=== PATIENT | female | born 1945 | race Caucasian/White ===

== ENCOUNTER 2020-05-01 15:29 | Outpatient (REF) | payer MEDICARE, SELFPAY ==
--- NOTE | 2020-05-01 | US_ITS ---
EXAMINATION: US THYROID CLINICAL INFORMATION: Goiter. COMPARISON: CT neck 12/28/2014. TECHNIQUE: Linear transducer german-scale and color Doppler examination with attention to the region of the thyroid. FINDINGS: SIZE: Measurements of the thyroid lobes and nodules are given in sagittal, anteroposterior and transverse dimensions respectively. Right Thyroid Lobe: 4.3 x 1.9 x 1.2 cm, volume 5.1 mL. Parenchyma: The gland echotexture is mildly heterogeneous. Thyroid vascularity is borderline increased. Left Thyroid Lobe: 4.2 x 1.9 x 1.7 cm, volume 7.1 mL. Parenchyma: The gland echotexture is mildly heterogeneous. Thyroid vascularity is borderline increased. Isthmus: 0.4 cm in maximum AP dimension. RIGHT THYROID LOBE: There are 3 nodules seen. 1. Location: Inferior. Size: 0.9 x 0.7 x 0.6 cm. Nodule characteristics: Isoechoic, smooth hypoechoic halo, circumscribed, no color flow. 2. Location: Inferior. Size: 0.6 x 0.4 x 0.4 cm. Nodule characteristics: Colloid cyst. 3. Location: Inferior. Size: 0.5 x 0.2 x 0.3 cm. Nodule characteristics: Isoechoic, smooth hypoechoic halo, circumscribed, no color flow. ISTHMUS: No nodules. LEFT THYROID LOBE: There are 2 nodules seen. 1. Location: Middle. Size: 0.5 x 0.2 x 0.4 cm. Nodule characteristics: Mild hypoechoic, circumscribed, intranodular color flow similar to background. 2. Location: Middle/inferior. Size: 1.2 x 0.6 x 0.7 cm. Nodule characteristics: Mild hypoechoic, circumscribed, intranodular color flow greater than background. NODES: No lymphadenopathy is seen in the tissue surrounding the thyroid gland. IMPRESSION: 1. Thyroid normal in size. No visible adenopathy. 2. Dominant nodule left lower pole 1.2 cm. Other bilateral nodularity under 1 cm.
== END 2020-05-01 15:30 | disposition home or self-care (01) ==
LOC: HO.US 15:29
PROVIDERS: PCP Internal Medicine; Visit Provider Nurse Practitioner Gerontology
DX: E04.9 Nontoxic goiter, unspecified (principal)
CPT/HCPCS: 76536

== ENCOUNTER 2020-05-28 10:05 | Outpatient (REF) | payer MEDICARE, SELFPAY ==
[2020-05-28 11:19] LABS: MANUAL DIFF FLAG NO
[2020-05-28 11:28] LABS: Basophils Percent Auto 0.4 % (0-2); Eosinophils Absolute Auto 0.5 X10*3/uL (0.0-0.4); Eosinophils Percent Auto 5.1 % (0-4); Glucose Urine UA NEG (NEG); Hematocrit 40.6 % (37-47); Hemoglobin 13.4 g/dl (12.0-16.0); Imm Gran Abs Auto 0.03 X10*3/uL (0.00-0.03); Imm Gran Pct Auto 0.3 % (0.0-0.4); Leukocyte Esterase Urine NEG (NEG); Lymphocytes Absolute Auto 3.1 X10*3/uL (1.2-4.9); Mean Corpuscular Hemoglobin 30.5 pg (27.0-33.0); Mean Corpuscular Volume 92.5 fL (80-98); Mean Platelet Volume 10.9 fL (9.4-12.3); Monocytes Absolute Auto 0.8 X10*3/uL (0.1-1.2); Monocytes Percent Auto 7.7 % (2-11); Neutrophils Absolute Auto 5.6 X10*3/uL (2.0-8.3); Neutrophils Percent Auto 55.5 % (45-73); Nitrite Urine NEG (NEG); PH 5.5 (5.0-8.0); Platelet Count 249 X10*3/uL (160-400); Red Blood Count 4.39 X10*6/uL (4.20-5.50); Red Cell Distribution Width 12.2 % (11.0-16.0); Specific Gravity - Urine 1.025 (1.005-1.025); Urine Blood NEG (NEG); Urine Ketones NEG (NEG); Urine Protein TRACE MG/DL (NEG-TRACE)
[2020-05-28 11:32] LABS: Appearance Urine CLEAR; Color Urine YELLOW
[2020-05-28 11:49] LABS: RBC Urine 0 /HPF (0); Renal Epithelial Cells Urine TRACE /LPF; Squamous Epithelial Cell Urine 2+ /LPF; WBC Urine 0-2 /HPF (0-4)
[2020-05-28 12:09] LABS: Estimated Average Glucose 200 mg/dL; Hemoglobin A1c % 8.6 %
[2020-05-28 12:18] LABS: B Type Natriuretic Peptide 16 pg/mL (<100)
[2020-05-28 13:11] LABS: Alanine Aminotransferase 16 U/L (0-31); Albumin Level 4.5 g/dL (3.5-5.0); Alkaline Phosphatase 73 U/L (39-117); Anion Gap 14 (12-20); Aspartate Amino Transferase 16 U/L (5-31); Bilirubin Total 0.5 mg/dL (0.0-1.0); Blood Urea Nitrogen 25 mg/dL (9-16); Calcium 9.8 mg/dL (8.4-10.2); Carbon Dioxide 27 mmol/L (22-29); Chloride 98 mmol/L (96-108); Cholesterol 202 mg/dL; Estimated Glomerular Filt Rate 55; Glucose Fasting 180 mg/dL (60-99); HDL Cholesterol 57 mg/dL; LDL Cholesterol Calculated 100 mg/dl; Potassium 4.4 mmol/l (3.3-5.1); Sodium 135 mmol/L (135-145); Total Protein 8.1 g/dL (6.5-8.0); Triglycerides 225 mg/dL
[2020-05-28 13:33] LABS: TSH reflex Free T4 0.98 mIU/mL (0.32-4.0)
== END 2020-05-28 10:06 | disposition home or self-care (01) ==
LOC: HO.LAB 10:05
PROVIDERS: Absent Provider Nurse Practitioner Gerontology; PCP Internal Medicine; Visit Provider Internal Medicine
DX: E11.22 Type 2 diabetes mellitus with diabetic chronic kidney disease (principal); I12.9 Hypertensive chronic kidney disease with stage 1 through stage 4 chronic kidney disease, or unspecified chronic kidney disease; N18.30 Chronic kidney disease, stage 3 unspecified; I42.9 Cardiomyopathy, unspecified; E66.9 Obesity, unspecified; E11.29 Type 2 diabetes mellitus with other diabetic kidney complication; E78.00 Pure hypercholesterolemia, unspecified
CPT/HCPCS: 36415; 80053; 80061; 81001; 83036; 83880; 84443; 85025

== ENCOUNTER → 2020-05-30 12:41 | Outpatient (BNVA) | payer MEDICARE, SELFPAY | PROVIDERS: PCP Internal Medicine; Referring Provider Internal Medicine; Visit Provider Internal Medicine Endocrinology, Diabetes & Metabolism | DX: E04.2 Nontoxic multinodular goiter (principal); R13.10 Dysphagia, unspecified | CPT/HCPCS: Q3014 ==

== ENCOUNTER 2020-07-17 13:54 | Outpatient (REF) | payer MEDICARE, SELFPAY ==
--- NOTE | 2020-07-17 13:59 | MM_ITS ---
EXAMINATION: MM SCREENING DIGITAL BREAST TOMOSYNTHESIS, BILATERAL CLINICAL INFORMATION: Screening. Asymptomatic. No known family history breast cancer. The lifetime risk of breast cancer based on the Tyrer-Cuzick Model is 3%. COMPARISON: Mammography: 02/28/2019, 02/27/2018, 12/15/2016 TECHNIQUE: Digital breast tomosynthesis is performed in both the craniocaudal and mediolateral oblique views along with computer-aided detection (CAD). Synthesized 2D images are generated from the tomosynthesis. Additional left MLO view is provided. Technologist notes challenging exam, requiring additional staff to assist in positioning. Images tailored to patient capabilities. FINDINGS: There are scattered areas of fibroglandular density (ACR BI-RADS breast composition Category b). Breast tissue composition borders on heterogeneously dense. There are scattered bilateral asymmetries stable from prior studies. There is no developing density or interval mass or architectural abnormality. Again, there are bilateral vascular calcifications. There is a biopsy clip marker again seen mid 3:30 o'clock left breast with stable adjacent calcifications. Pacemaker generator overlies and partly obscures left axilla on MLO view. MM/MM tomosynthesis screening BI IMPRESSION: No significant changes from prior studies. ASSESSMENT: BI-RADS 2: Benign RECOMMENDATION: Routine annual mammography screening. This patient's information was entered into a reminder system with a target due date for their next mammogram.
== END 2020-07-17 13:55 | disposition home or self-care (01) ==
LOC: HO.MAMMO 13:54
PROVIDERS: PCP Internal Medicine; Visit Provider Internal Medicine
DX: Z12.31 Encounter for screening mammogram for malignant neoplasm of breast (principal)
CPT/HCPCS: 77063; 77067

== ENCOUNTER → 2020-07-24 15:07 | Outpatient (BNVA) | payer MEDICARE, SELFPAY | PROVIDERS: PCP Internal Medicine; Referring Provider Internal Medicine; Visit Provider Student in an Organized Health Care Education/Training Program | DX: Z13.89 Encounter for screening for other disorder (principal) | CPT/HCPCS: Q3014 ==

== ENCOUNTER 2020-07-28 11:45 | Inpatient (IN) | payer MEDICARE, SELFPAY ==
[2020-07-28] VITALS (12 sets, daily range): BP systolic 84–157; BP diastolic 25–75; PULSE 60–76; RESP 12–20; TEMP 36.4–37.1; O2SAT 92–98; BMI 40.2
--- NOTE | 2020-07-28 12:23 | ED.AMS ---
HPI - Altered Mental Status General Chief Complaint: Urogenital-Female Stated Complaint: altered mental Time Seen by Provider: 07/28/20 12:22 Source: patient, EMS, old records reviewed and [employer] Mode of arrival: EMS Limitations: no limitations History of Present Illness HPI narrative: dx with UTI on 07/23 in the clinic but no micro noted states she was started on penicillin, EMS called as the daughter felt she was still symptomatic and confused today - review of records notes she was started on Bactrim BID the patient states she is annoyed she is here, but her low back does hurt complaint: confusion Onset (ago): day(s) (today) Timing confirmed by: family member Severity: mild Consistency of symptoms: waxing and waning Context: history of similar presentation and other (recent UTI) Associated symptoms: other (states her low back hurts) Treatments prior to arrival: other (has been taking bactrim DS BID) Related Data Home Medications Medication Instructions Recorded Confirmed albuterol sulfate 90 mcg/actuation 2 puff INHALATION Q6H PRN 05/30/20 07/28/20 aerosol inhaler blood sugar diagnostic #10 ea 05/30/20 06/19/20 escitalopram oxalate 5 mg tablet 5 mg PO DAILY 05/30/20 07/28/20 ivabradine 5 mg tablet 5 mg PO BID tab 05/30/20 07/28/20 lisinopril 40 mg tablet 40 mg PO DAILY 05/30/20 07/28/20 mirtazapine 45 mg tablet 45 mg PO BEDTIME 05/30/20 07/28/20 blood-glucose meter #1 ea 06/19/20 06/19/20 memantine 10 mg tablet 10 mg PO BID 06/19/20 07/28/20 calcium carbonate 500 mg calcium 500 mg PO BID tab 07/23/20 07/28/20 (1,250 mg) tablet Previous Rx's Medication Instructions Recorded acetaminophen 500 mg tablet 500 mg PO Q8H PRN 30 Days #90 tab 05/30/20 lorazepam 1 mg tablet 1 mg PO DAILY PRN 30 Days #30 tab 05/30/20 ezetimibe 10 mg tablet 10 mg PO DAILY #28 tab 06/05/20 famotidine 20 mg tablet 40 mg PO DAILY #56 tab 06/05/20 folic acid 1 mg tablet 1 mg PO DAILY #28 tab 06/05/20 oxybutynin chloride 5 mg tablet 5 mg PO BID #56 tab 06/05/20 insulin degludec 100 unit/mL (3 30 unit SUBCUT DAILY 30 Days #9 ml 06/07/20 mL) subcutaneous pen atorvastatin 40 mg tablet 40 mg PO DAILY #28 tab 06/16/20 repaglinide 0.5 mg tablet 0.5 mg PO TID 90 Days #270 tab 06/19/20 pen needle, diabetic 32 gauge x #100 ea 06/26/20 carvedilol 12.5 mg tablet 12.5 mg PO BID 90 Days #180 tab 07/24/20 dulaglutide 1.5 mg/0.5 mL 1.5 mg SUBCUT QWEEK #2 ml 07/24/20 subcutaneous pen injector secukinumab 150 mg/mL subcutaneous 150 mg SUBCUT Q4W #2 ml 07/24/20 pen injector albuterol sulfate 2.5 mg INHALATION Q6H PRN #300 ml 07/25/20 Allergies Allergy/AdvReac Type Severity Reaction Status Date / Time acetaminophen [Percocet] Allergy Unknown itchiness Verified 07/28/20 12:18 aspirin [Aspirin] Allergy Unknown STOMACH Verified 07/28/20 12:18 UPSET, stomach pain baclofen Allergy Unknown dizziness Verified 07/28/20 12:18 oxycodone [Percocet] Allergy Unknown itchiness Verified 07/28/20 12:18 penicillin G [Penicillin G] Allergy Unknown SWELLING Verified 07/28/20 12:18 penicillin V Allergy Unknown anaphylaxis, Verified 07/28/20 12:18 oral swelling Review of Systems Review of Systems: Constitutional : No Weight loss, No Fever, No Chills, No Fatigue, No Malaise ENT/Mouth : No sore throat, No Rhinorrhea Eyes: No Eye Pain, No Swelling, No Redness Cardiovascular : No Chest Pain, No SOB, No Dyspnea on Exertion, No Orthopnea, No Edema, No Palpitations Respiratory : No Cough, No Sputum, No Wheezing Gastrointestinal : No Nausea, No Vomiting, No Diarrhea, No Constipation, No abdominal Pain, No Hematochezia, No Melena Genitourinary : No Dysuria, No Urinary Frequency, No Hematuria, Musculoskeletal : No joint pain, No Myalgias, No Joint Swelling, pos back pain Skin : No Skin Lesions, No rash Neuro : No Weakness, No Numbness, No Dizziness, No Headache Psych : No Anxiety/Panic, No Depression All other systems reviewed and are negative [facility] Past Medical History Attestation statement: The following information was validated with the patient. Medical History Anxiety Asthma Benign essential hypertension Cardiomyopathy Chronic kidney disease (CKD), stage III (moderate) Constipation Dementia Depression Diabetes mellitus Dyslipidemia GERD without esophagitis Hypertension Insomnia Mixed stress and urge urinary incontinence NICM (nonischemic cardiomyopathy) Non-toxic multinodular goiter Obesity (BMI 30-39.9) Psoriatic arthritis Pure hypercholesterolemia 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 2 diabetes mellitus with other diabetic kidney complication UTI (urinary tract infection) UTI (urinary tract infection) Surgical History History of section History of knee replacement procedure of right knee History of left knee replacement History of partial hysterectomy History of repair of rotator cuff History of shoulder surgery History of surgery Family History Family History Father Prostate cancer Mouth cancer Mother Type 2 diabetes mellitus Hyperlipidemia Diabetes Hypertension Social History Social History Household Members: None Alcohol intake: never Smoking Status: Never smoker Use of substances other than those prescribed or required for medical reasons: No Advance Directives: No Advance Directives Information Provided: Yes Physical Exam Vital Signs: Vital Signs: Last Vital Signs Temp 97.9 F 07/28/20 16:00 Pulse 60 07/28/20 16:00 Resp 17 07/28/20 16:00 BP 110/61 07/28/20 16:00 Pulse Ox 97 07/28/20 16:00 Body Mass Index 40.2 Appearance: Alert. Oriented X3. No acute distress. slightly annoyed Eyes: Pupils equal, round and reactive to light. ENT: Pharynx normal. Neck: Normal inspection. Neck supple. CVS: Normal heart rate and rhythm. Pulses normal. Respiratory: No respiratory distress. Breath sounds normal. Abdomen: Soft and nontender. Back: mild L CVA ttp Skin: Skin warm and dry. Normal skin color. Normal skin turgor. Extremities: No lower extremity edema. No calf ttp Neuro: Oriented X 3. No motor deficit. No sensory deficit. Course Course Course Narrative: + COVID fluids held at this time given COVID status and UA negative at this time, hypotension due to COVID and not bacterial infection - concern for COVID and ARDs initial bolus ordered then 2nd liter of fluid over a couple of hours if BP tolerates BP 116/53 BP 110/60 MDM - Altered Mental Status MDM Narrative Medical decision making narrative: 74 yo female with multiple medical problems here with reported confusion she is alert and oriented x 3 now, no headaches, no focal deficits, she did have a recent UTI on 07/23 but no micro ordered and has been taking bactrim at this time the patient states she is fine, will obtain basic labs, CT scan for renal colic, IV levofloxacin send out repeat urine Lab Data Result diagrams: 07/28/20 13:22 07/28/20 13:22 Labs: Lab Results 07/28/20 07/28/20 07/28/20 Range/Units 13:22 13:22 13:22 WBC 10.7 (4.8-10.8) X10*3/uL RBC 3.66 L (4.20-5.50) X10*6/uL Hgb 11.3 L (12.0-16.0) g/dl Hct 35.3 L (37-47) % MCV 96.4 (80-98) fL MCH 30.9 (27.0-33.0) pg MCHC 32.0 (31.0-35.0) g/dl RDW 12.9 (11.0-16.0) % Plt Count 170 D (160-400) X10*3/uL MPV 11.0 (9.4-12.3) fL Immature Gran % (Auto) 0.3 (0.0-0.4) % Neut % (Auto) 69.9 (45-73) % Lymph % (Auto) 21.4 (20-40) % [place]nam % (Auto) 8.1 (2-11) % Eos % (Auto) 0.1 (0-4) % Baso % (Auto) 0.2 (0-2) % Lymph # (Auto) 2.3 (1.2-4.9) X10*3/uL [place] # (Auto) 0.9 (0.1-1.2) X10*3/uL Eos # (Auto) 0.0 (0.0-0.4) X10*3/uL Baso # (Auto) 0.0 (0.0-0.2) X10*3/uL Abs Immat Gran (auto) 0.03 (0.00-0.03) X10*3/uL Absolute Neuts (auto) 7.5 (2.0-8.3) X10*3/uL Absolute Nucleated RBC 0.000 (0.0-0.012) X10*3/uL Nucleated RBC % (auto) 0.0 (0.0-0.2) /100WBC Sodium 135 (135-145) mmol/L Potassium 5.3 H D (3.3-5.1) mmol/l Chloride 102 (96-108) mmol/L Carbon Dioxide 21 L (22-29) mmol/L Anion Gap 17 (12-20) BUN 41 H D (9-16) mg/dL Creatinine 2.22 H (0.5-1.4) mg/dL Estim Creat Clear Calc 25.2 Estimated GFR 22 Random Glucose 327 H (60-115) mg/dL Lactic Acid 2.0 (0.5-2.0) mmol/L Calcium 9.1 D (8.4-10.2) mg/dL Magnesium 1.9 (1.6-2.6) mg/dL Total Bilirubin 0.3 (0.0-1.0) mg/dL Direct Bilirubin < 0.2 (0.0-0.5) mg/dL AST 21 (5-31) U/L ALT 14 (0-31) U/L Alkaline Phosphatase 57 D (39-117) U/L Troponin I High Sens (<3.5-17.0) ng/L Total Protein 7.3 (6.5-8.0) g/dL Albumin 3.8 (3.5-5.0) g/dL Urine Color Urine Appearance Urine pH (5.0-8.0) Ur Specific [place] (1.005-1.025) Urine Protein (NEG-TRACE) MG/DL Urine Glucose (UA) (NEG) MG/DL Urine Ketones (NEG) MG/DL Urine Blood (NEG) Urine Nitrite (NEG) Ur Leukocyte Esterase (NEG) COVID-19 (MARCELO) (Negative) COVID-19 Clin Com 07/28/20 07/28/20 07/28/20 Range/Units 13:22 13:22 13:22 WBC (4.8-10.8) X10*3/uL RBC (4.20-5.50) X10*6/uL Hgb (12.0-16.0) g/dl Hct (37-47) % MCV (80-98) fL MCH (27.0-33.0) pg MCHC (31.0-35.0) g/dl RDW (11.0-16.0) % Plt Count (160-400) X10*3/uL MPV (9.4-12.3) fL Immature Gran % (Auto) (0.0-0.4) % Neut % (Auto) (45-73) % Lymph % (Auto) (20-40) % Putnam % (Auto) (2-11) % Eos % (Auto) (0-4) % Baso % (Auto) (0-2) % Lymph # (Auto) (1.2-4.9) X10*3/uL [place] # (Auto) (0.1-1.2) X10*3/uL Eos # (Auto) (0.0-0.4) X10*3/uL Baso # (Auto) (0.0-0.2) X10*3/uL Abs Immat Gran (auto) (0.00-0.03) X10*3/uL Absolute Neuts (auto) (2.0-8.3) X10*3/uL Absolute Nucleated RBC (0.0-0.012) X10*3/uL Nucleated RBC % (auto) (0.0-0.2) /100WBC Sodium (135-145) mmol/L Potassium (3.3-5.1) mmol/l Chloride (96-108) mmol/L Carbon Dioxide (22-29) mmol/L Anion Gap (12-20) BUN (9-16) mg/dL Creatinine (0.5-1.4) mg/dL Estim Creat Clear Calc Estimated GFR Random Glucose (60-115) mg/dL Lactic Acid (0.5-2.0) mmol/L Calcium (8.4-10.2) mg/dL Magnesium (1.6-2.6) mg/dL Total Bilirubin (0.0-1.0) mg/dL Direct Bilirubin (0.0-0.5) mg/dL AST (5-31) U/L ALT (0-31) U/L Alkaline Phosphatase (39-117) U/L Troponin I High Sens 9.5 (<3.5-17.0) ng/L Total Protein (6.5-8.0) g/dL Albumin (3.5-5.0) g/dL Urine Color YELLOW Urine Appearance HAZY Urine pH 5.5 (5.0-8.0) Ur Specific [place] >= 1.030 H (1.005-1.025) Urine Protein TRACE (NEG-TRACE) MG/DL Urine Glucose (UA) 100 H (NEG) MG/DL Urine Ketones NEG (NEG) MG/DL Urine Blood NEG (NEG) Urine Nitrite NEG (NEG) Ur Leukocyte Esterase NEG (NEG) COVID-19 (MARCELO) Positive A (Negative) COVID-19 Clin Com See Note ECG Data ECG #1: Attestation: I personally reviewed and interpreted this ECG as follows: ECG interpretation date: 07/28/20 ECG interpretation time: 15:16 Interpretation: Rate: 60 Rhythm: v paced continuous - atrial sensed [place]clenny: normal Normal P waves. Normal LEATHA. Normal QRS complex. ST T wave : nonspecific, no CELINE qTC: normal prior studies: The study has been interpreted contemporaneously by me. . Critical Care Time Critical Care Time Critical Care Time: Yes Total Critical Care Time: 35 Attestation: 2L of IVF resuscitation ordered, records reviewed. I attest to this time spent taking care of the patient Discharge Plan Discharge Clinical Impression: COVID-19 Acute renal failure Qualifiers: Acute renal failure type: unspecified Qualified Code(s): N17.9 - Acute kidney failure, unspecified Patient Disposition: Admitted As Inpatient
--- NOTE | 2020-07-28 12:30 | ECG_ITS ---
Test Reason : SHORTNESS OF BREATH Blood Pressure : / mmHG Vent. Rate : 060 BPM Atrial Rate : 060 BPM P-R Int : 124 ms QRS Dur : 090 ms QT Int : 456 ms P-R-T Axes : 030 032 025 degrees QTc Int : 456 ms Atrial-sensed ventricular-paced rhythm Abnormal ECG When compared with ECG of 27-SEP-2019 11:55, Vent. rate has decreased BY 20 BPM Referred By: Ruthie Miller Electronically Signed By:ANALY WHITTEN MD
--- NOTE | 2020-07-28 12:30 | XR_ITS ---
EXAMINATION: XR CHEST CLINICAL INFORMATION: Weakness. COMPARISON: Chest 09/27/2019 TECHNIQUE: Frontal view of the chest was obtained. FINDINGS: The lung apices are on expiration. No pulmonary nodule, mass or consolidation seen. The heart size is borderline enlarged. The pulmonary vascularity is normal. There are pacer electrodes in right atrium and right ventricle. There is a total right shoulder prosthesis. The prosthetic components are in satisfactory alignment. No gross bony abnormality seen. No XR/XR chest 1V IMPRESSION: No acute pulmonary process seen. Cardiomegaly.
--- NOTE | 2020-07-28 12:51 | CT_ITS ---
EXAMINATION: CT ABDOMEN AND PELVIS WITHOUT CONTRAST CLINICAL INFORMATION: Left flank pain. COMPARISON: CT abdomen and pelvis without contrast 10/06/2011. TECHNIQUE: Multidetector volumetric imaging was performed from the superior aspect of the liver through the pubic symphysis. Sagittal and coronal reformatted images were obtained on the technologist's workstation. This CT examination was performed using dose optimization techniques as appropriate, variously including the following: *Automated exposure control *Adjustment of mA and/or kV according to patient size (this includes techniques or standardized protocols for targeted exams where dose is matched to indication/reason for exam; i.e. extremities or head) *Use of iterative reconstruction technique DLP: 711 mGy-cm FINDINGS: LUNG BASES: Minimal atelectatic changes seen in left lung base. The heart size is normal. LIVER, GALLBLADDER, AND BILIARY TREE: The liver is normal in size, shape, and attenuation. No focal hepatic lesion or biliary ductal dilatation is present. The gallbladder is unremarkable with no evidence of radiopaque gallstones, gallbladder wall thickening, or obvious pericholecystic inflammatory changes. PANCREAS: Unremarkable. SPLEEN: There is a 4 mm hypodensity central spleen. The spleen is otherwise normal size and density. ADRENAL GLANDS: In the right adrenal gland there is low-density lesion measuring 1.4 x 1.2 cm and measuring -9 Hounsfield units suggestive of adrenal myolipoma. The left adrenal gland is normal. KIDNEYS AND URETERS: The kidneys are normal in size, shape, and attenuation. No hydronephrosis, hydroureter, or calculi seen. No perinephric stranding. There is a moderate-sized cyst lower pole left kidney measuring 4.1 x 4.2 cm. A small hypodense lesion midpole cortex left kidney measuring 3 mm on axial image 33/3 is likely a small complex or proteinaceous cyst. BLADDER: Unremarkable. GASTROINTESTINAL TRACT: There is scattered stool and gas seen throughout the colon without significant distention. The small bowel loops are normal caliber. Appendix is likely normal caliber. ABDOMINAL WALL: No significant hernia is appreciated. LYMPH NODES: Normal. VASCULAR: Unremarkable. PELVIC VISCERA: Calcified density surrounding the prostatic urethra. No free air or free fluid seen. OSSEOUS STRUCTURES: No lytic or sclerotic process seen. There is mild degenerative disc changes and spondylosis lower dorsal spine. Bilateral L4-L5 and L5-S1 facet joint arthropathy. CT/CT abdomen pelvis wo con IMPRESSION: No acute intra-abdominal process seen. No change in the moderate-sized cyst midpole cortex left kidney and a small hyperdense complex cyst mid to lower pole left kidney cortex.
[2020-07-28] MEDS: 0.9 % Sodium Chloride 1,000 ML 999 ML IVCONT ×2 (13:28→14:59)
[2020-07-28 13:35] LABS: Glucose Urine UA 100 MG/DL (NEG); Leukocyte Esterase Urine NEG (NEG); Nitrite Urine NEG (NEG); PH 5.5 (5.0-8.0); Specific Gravity - Urine >= 1.030 (1.005-1.025); Urine Blood NEG (NEG); Urine Ketones NEG (NEG); Urine Protein TRACE MG/DL (NEG-TRACE)
[2020-07-28 13:37] LABS: Appearance Urine HAZY; Color Urine YELLOW
[2020-07-28 13:39] LABS: MANUAL DIFF FLAG NO
[2020-07-28 13:40] LABS: Basophils Percent Auto 0.2 % (0-2); Eosinophils Percent Auto 0.1 % (0-4); Hematocrit 35.3 % (37-47); Hemoglobin 11.3 g/dl (12.0-16.0); Imm Gran Abs Auto 0.03 X10*3/uL (0.00-0.03); Imm Gran Pct Auto 0.3 % (0.0-0.4); Lymphocytes Absolute Auto 2.3 X10*3/uL (1.2-4.9); Lymphocytes Percent Auto 21.4 % (20-40); Mean Corpuscular Hemoglobin 30.9 pg (27.0-33.0); Mean Corpuscular Volume 96.4 fL (80-98); Monocytes Absolute Auto 0.9 X10*3/uL (0.1-1.2); Monocytes Percent Auto 8.1 % (2-11); Neutrophils Absolute Auto 7.5 X10*3/uL (2.0-8.3); Neutrophils Percent Auto 69.9 % (45-73); Platelet Count 170 X10*3/uL (160-400); Red Blood Count 3.66 X10*6/uL (4.20-5.50); Red Cell Distribution Width 12.9 % (11.0-16.0); White Blood Count 10.7 X10*3/uL (4.8-10.8)
[2020-07-28 13:49] LABS: COVID-19 Test Positive (Negative)
[2020-07-28] MEDS: levoFLOXacin/D5W 500 MG/100 ML PIGGYBACK 100 MG IV (13:57)
[2020-07-28 14:05] LABS: Alanine Aminotransferase 14 U/L (0-31); Albumin Level 3.8 g/dL (3.5-5.0); Alkaline Phosphatase 57 U/L (39-117); Anion Gap 17 (12-20); Aspartate Amino Transferase 21 U/L (5-31); Bilirubin Direct < 0.2 mg/dL (0.0-0.5); Bilirubin Total 0.3 mg/dL (0.0-1.0); Blood Urea Nitrogen 41 mg/dL (9-16); Calcium 9.1 mg/dL (8.4-10.2); Carbon Dioxide 21 mmol/L (22-29); Chloride 102 mmol/L (96-108); Creatinine Clr Calc Pharmacy 25.2; Estimated Glomerular Filt Rate 22; Glucose Random 327 mg/dL (60-115); Magnesium 1.9 mg/dL (1.6-2.6); Potassium 5.3 mmol/l (3.3-5.1); Sodium 135 mmol/L (135-145); Total Protein 7.3 g/dL (6.5-8.0)
[2020-07-28 14:06] LABS: Troponin-I High Sensitivity 9.5 ng/L (<3.5-17.0)
--- NOTE | 2020-07-28 17:34 | P.HPHOSP_ITS ---
History of Present Illness Date of Service: 07/28/20 <WYATT Mclaughlin - Last Filed: 07/28/20 17:45> Chief Complaint: Confusion, urinary symptoms <WYATT Mclaughlin - Last Filed: 07/28/20 17:45> This is a 74-year-old Polish-speaking female who was recently diagnosed with UTI. Patient was recently treated with Bactrim for UTI diagnosed on July 23. Her daughter brought her to the emergency room today stating that she has been confused. Patient is unable to provide any significant history despite using the principal architectural firm. Her lab work revealed acute kidney injury with a serum creatinine of 2.2 to associated hyperkalemia with a potassium of 5.3. Her blood pressure is in the 80s on arrival, this improved with 3 L of IV fluid. She was given a dose of IV levofloxacin. A COVID screening test was done for hospital admission and she was incidentally found to be positive for coronavirus. <WYATT Mclaughlin - Last Filed: 07/28/20 17:45> Review of Systems Review of Systems: Yes Unobtainable due to mental status <WYATT Mclaughlin - Last Filed: 07/28/20 17:45> [facility] Medical History: Medical History Anxiety Asthma Benign essential hypertension Cardiomyopathy Chronic kidney disease (CKD), stage III (moderate) Constipation Dementia Depression Diabetes mellitus Dyslipidemia GERD without esophagitis Hypertension Insomnia Mixed stress and urge urinary incontinence NICM (nonischemic cardiomyopathy) Non-toxic multinodular goiter Obesity (BMI 30-39.9) Psoriatic arthritis Pure hypercholesterolemia 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 2 diabetes mellitus with other diabetic kidney complication UTI (urinary tract infection) UTI (urinary tract infection) <WYATT Mcluaghlin - Last Filed: 07/28/20 17:45> Family History: Family History Father Prostate cancer Mouth cancer Mother Type 2 diabetes mellitus Hyperlipidemia Diabetes Hypertension <WYATT Mclaughlin - Last Filed: 07/28/20 17:45> Surgical History: Surgical History History of section History of knee replacement procedure of right knee History of left knee replacement History of partial hysterectomy History of repair of rotator cuff History of shoulder surgery History of surgery <WYATT Mcluaghlin - Last Filed: 07/28/20 17:45> Social History: Social History Household Members: None Alcohol intake: never Smoking Status: Never smoker Use of substances other than those prescribed or required for medical reasons: No Currently Displaying Signs/Symptoms of Drug Intoxication Withdrawal: No Advance Directives: No Advance Directives Information Provided: Yes Do you have thoughts of harming others: None Do you have a plan to hurt others: No Plan service: No Current occupational status: retired <WYATT Mclaughlin - Last Filed: 07/28/20 17:45> Meds Allergies/Adverse reactions: Allergies Allergy/AdvReac Type Severity Reaction Status Date / Time acetaminophen [Percocet] Allergy Unknown itchiness Verified 07/28/20 12:18 aspirin [Aspirin] Allergy Unknown STOMACH Verified 07/28/20 12:18 UPSET, stomach pain baclofen Allergy Unknown dizziness Verified 07/28/20 12:18 oxycodone [Percocet] Allergy Unknown itchiness Verified 07/28/20 12:18 penicillin G [Penicillin G] Allergy Unknown SWELLING Verified 07/28/20 12:18 penicillin V Allergy Unknown anaphylaxis, Verified 07/28/20 12:18 oral swelling <WYATT Mclaughlin - Last Filed: 07/28/20 17:45> Home medications: Home Medications Medication Instructions Recorded Confirmed Type albuterol sulfate 90 mcg/actuation 2 puff INHALATION Q6H PRN 05/30/20 07/28/20 History aerosol inhaler blood sugar diagnostic #10 ea 05/30/20 06/19/20 History escitalopram oxalate 5 mg tablet 5 mg PO DAILY 05/30/20 07/28/20 History ivabradine 5 mg tablet 5 mg PO BID tab 05/30/20 07/28/20 History mirtazapine 45 mg tablet 45 mg PO BEDTIME 05/30/20 07/28/20 History blood-glucose meter #1 ea 06/19/20 06/19/20 History memantine 10 mg tablet 10 mg PO BID 06/19/20 07/28/20 History calcium carbonate 500 mg calcium 500 mg PO BID tab 07/23/20 07/28/20 History (1,250 mg) tablet <WYATT Mclaughlin - Last Filed: 07/28/20 17:45> Physical Exam Vital Signs and Narrative: Vital Signs: Last Vital Signs Temp 97.9 F 07/28/20 16:00 Pulse 60 07/28/20 16:00 Resp 17 07/28/20 16:00 BP 110/61 07/28/20 16:00 Pulse Ox 97 07/28/20 16:00 Body Mass Index 40.2 <WYATT Mclaughlin - Last Filed: 07/28/20 17:45> Const: General: alert and awake <WYATT Mclaughlin Last Filed: 07/28/20 17:45> Nutritional Appearance: obese <WYATT Mclaughlin - Last Filed: 07/28/20 17:45> HENMT: Head: Yes normocephalic and Yes atraumatic <WYATT Mclaughlin - Last Filed: 07/28/20 17:45> Eyes: Sclerae: sclerae normal <WYATT Mclaughlin Last Filed: 07/28/20 17:45> Chest: Chest palpation & inspection: normal inspection of the chest <WYATT Mclaughlin Last Filed: 07/28/20 17:45> Resp: Effort & Inspection: normal respiratory effort and no respiratory distress <WYATT Mclaughlin - Last Filed: 07/28/20 17:45> Cardio: Rate: regular rate <WYATT Mclaughlin Last Filed: 07/28/20 17:45> Rhythm: regular rhythm <WYATT Mclaughlin Last Filed: 07/28/20 17 :45> GI: Palpation (GI): Soft to palpation and nontender <WYATT Mclaughlin - Last Filed: 07/28/20 17:45> Skin: General skin exam: no rashes or lesions noted <WYATT Mclaughlin Last Filed: 07/28/20 17:45> Neuro: Cranial nerves: Yes CN's II-XII intact bilaterally and Yes Bilaterally intact EOM present <WYATT Mclaughlin - Last Filed: 07/28/20 17:45> Extrem: General: Yes normal to inspection <WYATT Mclaughlin - Last Filed: 07/28/20 17:45> Results Labs CBC and Chem 7: : 07/30/20 06:31 07/29/20 06:17 <WYATT Mclaughlin - Last Filed: 07/28/20 17:45> Labs: Laboratory Results - last 24 hr 07/28/20 07/28/20 07/28/20 13:22 13:22 13:22 MCV 96.4 MCH 30.9 MCHC 32.0 RDW 12.9 Plt Count 170 D MPV 11.0 Immature Gran % (Auto) 0.3 Neut % (Auto) 69.9 Lymph % (Auto) 21.4 Terrell % (Auto) 8.1 Eos % (Auto) 0.1 Baso % (Auto) 0.2 Lymph # (Auto) 2.3 Terrell # (Auto) 0.9 Eos # (Auto) 0.0 Baso # (Auto) 0.0 Abs Immat Gran (auto) 0.03 Absolute Neuts (auto) 7.5 Absolute Nucleated RBC 0.000 Nucleated RBC % (auto) 0.0 Anion Gap 17 Estim Creat Clear Calc 25.2 Estimated GFR 22 Random Glucose 327 H Lactic Acid 2.0 Calcium 9.1 D Magnesium 1.9 Total Bilirubin 0.3 Direct Bilirubin < 0.2 AST 21 ALT 14 Alkaline Phosphatase 57 D Troponin I High Sens Total Protein 7.3 Albumin 3.8 Urine Color Urine Appearance Urine pH Ur Specific [place] Urine Protein Urine Glucose (UA) Urine Ketones Urine Blood Urine Nitrite Ur Leukocyte Esterase COVID-19 (M[facility]ELO) COVID-19 Clin Com 07/28/20 07/28/20 07/28/20 13:22 13:22 13:22 MCV MCH MCHC RDW Plt Count MPV Immature Gran % (Auto) Neut % (Auto) Lymph % (Auto) Terrell % (Auto) Eos % (Auto) Baso % (Auto) Lymph # (Auto) Terrell # (Auto) Eos # (Auto) Baso # (Auto) Abs Immat Gran (auto) Absolute Neuts (auto) Absolute Nucleated RBC Nucleated RBC % (auto) Anion Gap Estim Creat Clear Calc Estimated GFR Random Glucose Lactic Acid Calcium Magnesium Total Bilirubin Direct Bilirubin AST ALT Alkaline Phosphatase Troponin I High Sens 9.5 Total Protein Albumin Urine Color YELLOW Urine Appearance HAZY Urine pH 5.5 Ur Specific [place] >= 1.030 H Urine Protein TRACE Urine Glucose (UA) 100 H Urine Ketones NEG Urine Blood NEG Urine Nitrite NEG Ur Leukocyte Esterase NEG COVID-19 (MARCELO) Positive A COVID-19 Clin Com See Note <WYATT Mclaughlin - Last Filed: 07/28/20 17:45> Imaging Radiologist's Impressions: Impressions Chest X-Ray 07/28/20 12:30 IMPRESSION: No acute pulmonary process seen. Cardiomegaly. Abdomen/Pelvis CT 07/28/20 12:51 IMPRESSION: No acute intra-abdominal process seen. No change in the moderate-sized cyst midpole cortex left kidney and a small hyperdense complex cyst mid to lower pole left kidney cortex. <WYATT Mclaughlin Last Filed: 07/28/20 17:45> Assessment and Plan (1) COVID-19: Status: Acute <WYATT Mclaughlin - Last Filed: 07/28/20 17:45> (2) Acute renal failure: Qualifiers: Acute renal failure type: unspecified Qualified Code(s): N17.9 - Acute kidney failure, unspecified <WYATT Mclaughlin - Last Filed: 07/28/20 17:45> Status: Acute <WYATT Mclaughlin - Last Filed: 07/28/20 17:45> (3) UTI (urinary tract infection): Qualifiers: Hematuria presence: without hematuria Urinary tract infection type: site unspecified Qualified Code(s): N39.0 - Urinary tract infection, site not specified <WYATT Mclaughlin - Last Filed: 07/28/20 17:45> Status: Acute <WYATT Mclaughlin - Last Filed: 07/28/20 17:45> This is a 74-year-old Polish-speaking female with history of CKD, diabetes, hypertension, dyslipidemia among others who was recently diagnosed with UTI and treated with Bactrim brought to the emergency department with confusion found to have SHABANA, hyperkalemia and incidentally COVID-19 SHABANA Creatinine 2.2 from baseline 0.99 IV fluid Avoid nephrotoxic medication Follow renal function Hyperkalemia Secondary to Bactrim/SHABANA Follow chemistries Toxic metabolic encephalopathy Related to UTI, SHABANA in setting of underlying cognitive impairment UTI Received a dose of IV levofloxacin in the ED No urine culture done as outpatient COVID-19 positive Not currently requiring oxygen Continue supportive care CHF Ivabrandine NF does not appear to be on diuretic DM SSI, POC hold home meds Mood Continue escitalopram, Ativan, mirtazapine Hypertension Blood pressure to in 80s on arrival Hold lisinopril, carvedilol GERD Hold famotidine Cognitive impairment Continue Namenda Dyslipidemia Continue statin, hold Zetia Urinary incontinence Continue oxybutynin Morbid obesity BMI 40.2 DVT prophylaxis-Lovenox This case was discussed with <WYATT Mclaughlin - Last Filed: 07/28/20 17:45>
[2020-07-28] MEDS: Lactated Ringers 1,000 ML 80 ML IVCONT (18:12)
[2020-07-28] MEDS: Enoxaparin Sodium 30 MG/0.3 ML SYRINGE SUBCUT (18:13)
--- NOTE | 2020-07-28 18:15 | PC.NURSE ---
sleeping. nsr. unlabored resp/ easily arousable. skin pwd. will continue to monitor bp.
--- NOTE | 2020-07-28 19:12 | P.EN_ITS ---
Event Note Date of Service: 07/29/20 Event Note: Patient seen examined case discussed with APC. Female patient presented with confusion and abdominal pain patient recently treated for UTI with Bactrim in the emergency room patient found to be in acute kidney injury CT abdomen and pelvis showed no acute abnormality urinalysis unremarkable a COVID screen done for hospital admission came back positive On examination patient awake alert Montserratian-speaking only complaining of abdominal pain Lungs clear to auscultation diminished breath sounds Abdomen obese, soft, mild tenderness to palpation mid abdomen no rigidity no guarding Extremities no edema Assessment and plan SHABANA with hyperkalemia likely related to Bactrim patient will be treated with IV fluids avoid nephrotoxic medication follow BMP Acute encephalopathy likely you related to UTI and a care patient will be treated with IV fluids IV antibiotics follow clinical course COVID-19 infection patient oxygenation is stable no other acute symptoms will follow clinical course.
[2020-07-28] MEDS: Memantine HCl 10 MG TABLET PO (22:54)
[2020-07-28] MEDS: Mirtazapine 15 MG TABLET 45 MG PO (22:54)
[2020-07-28] MEDS: LORazepam 1 MG TABLET PO (22:54)
[2020-07-29] VITALS (8 sets, daily range): BP systolic 119–162; BP diastolic 64–84; PULSE 80–87; RESP 15–24; TEMP 37.1–38.1; O2SAT 92–95; BMI 40.2
[2020-07-29] MEDS: 0.9 % Sodium Chloride Flush 3 ML SYRINGE IVFLUSH ×4 (00:23→21:00)
[2020-07-29 06:38] LABS: MANUAL DIFF FLAG NO
[2020-07-29 06:46] LABS: Basophils Percent Auto 0.1 % (0-2); Eosinophils Absolute Auto 0.1 X10*3/uL (0.0-0.4); Eosinophils Percent Auto 0.8 % (0-4); Hematocrit 33.8 % (37-47); Hemoglobin 10.8 g/dl (12.0-16.0); Imm Gran Abs Auto 0.04 X10*3/uL (0.00-0.03); Imm Gran Pct Auto 0.4 % (0.0-0.4); Lymphocytes Percent Auto 28.1 % (20-40); Mean Corpuscular Hemoglobin 30.9 pg (27.0-33.0); Mean Corpuscular Volume 96.6 fL (80-98); Mean Platelet Volume 10.4 fL (9.4-12.3); Monocytes Absolute Auto 0.9 X10*3/uL (0.1-1.2); Monocytes Percent Auto 8.6 % (2-11); Neutrophils Absolute Auto 6.6 X10*3/uL (2.0-8.3); Platelet Count 172 X10*3/uL (160-400); White Blood Count 10.7 X10*3/uL (4.8-10.8)
[2020-07-29 07:21] LABS: Anion Gap 13 (12-20); Blood Urea Nitrogen 23 mg/dL (9-16); Calcium 8.6 mg/dL (8.4-10.2); Carbon Dioxide 24 mmol/L (22-29); Chloride 108 mmol/L (96-108); Creatinine Clr Calc Pharmacy 49.6; Estimated Glomerular Filt Rate 47; Glucose Random 109 mg/dL (60-115); Potassium 4.6 mmol/l (3.3-5.1); Sodium 140 mmol/L (135-145)
[2020-07-29 07:33] LABS: Glucose, Whole Blood 111 mg/dL (60-115)
[2020-07-29] MEDS: Memantine HCl 10 MG TABLET PO ×2 (08:20→20:59)
[2020-07-29] MEDS: Folic Acid 1 MG TABLET PO (08:20)
[2020-07-29] MEDS: Atorvastatin Calcium 40 MG TABLET PO (08:20)
[2020-07-29] MEDS: Escitalopram Oxalate 5 MG TABLET PO (08:20)
--- NOTE | 2020-07-29 10:05 | MHC.CM.PN ---
pt lives alone in her apt. 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 this interview was conducted c pt's daughter, navin, ph: [phone]. pt's daughter will provide transportation home. pt uses a walker c ambulation. pt's daughter is very involved in her mother's care despite not living c her. in fact , the daughter tells me she is considering getting a larger apt. so she can move her mother in. the daughter denies the need for vna at this time. dc plan is for patient to return home c sash installer and care of daughter. cm to cont. to follow.
[2020-07-29] MEDS: Insulin Lispro 100 UNIT/ML 3 ML VIAL SUBCUT ×3 (11:35→21:37)
[2020-07-29 11:39] LABS: Glucose, Whole Blood 183 mg/dL (60-115)
[2020-07-29] MEDS: ondansetron HCL 4 MG/2 ML VIAL IVPUSH (12:35)
--- NOTE | 2020-07-29 15:16 | P.PNIM_ITS ---
Subjective Subjective Date of Service: 07/29/20 Interval History: Patient awake alert history obtained via clinical informatics director feels tired, abdominal pain is significantly improved, no nausea, no vomiting. Review of Systems General no headache, no dizziness, no fever chills. CVS no chest pain, no palpitation. Respiratory no cough, no sputum production no respiratory distress. Gastrointestinal no nausea no vomiting, mild abdominal pain Physical Exam Vital Signs: Vital Signs: Last Vital Signs Temp 99.5 F 07/29/20 12:00 Pulse 87 07/29/20 12:00 Resp 15 07/29/20 12:00 BP 162/75 H 07/29/20 07:57 Pulse Ox 93 07/29/20 12:00 Body Mass Index 40.2 General resting comfortably in no acute distress. Neck is supple no JVD. CVS regular rate rhythm, Respiratory lungs clear to auscultation, diminished at bases, no respiratory distress, no wheeze, no rhonchi. Gastrointestinal abdomen soft, nontender, bowel sounds audible, no guarding , no rigidity. Extremities no clubbing cyanosis or edema. Neuro nonfocal , speech clear. Skin no rash Objective Data Current Medications Generic Name Dose Route Start Last Admin Trade Name Freq PRN Reason Stop Dose Admin Albuterol Sulfate 2 puff 07/28/20 17:33 Albuterol Sulfate 90 Mcg 8 Gm Inhaler INHALE Q6H PRN Shortness Of Breath Atorvastatin Calcium 40 mg 07/29/20 09:00 07/29/20 08:20 Atorvastatin Calcium 40 Mg Tablet PO 40 mg DAILY TORRES Administration Calcium Carbonate 500 mg 07/28/20 21:00 07/29/20 08:20 Calcium Carbonate 500 Mg Tablet PO 500 mg BID TORRES Administration Docusate Sodium 100 mg 07/28/20 17:33 Docusate Sodium 100 Mg Capsule PO DAILY PRN Constipation Enoxaparin Sodium 30 mg 07/28/20 17:33 07/28/20 18:13 Enoxaparin Sodium 30 Mg/0.3 Ml Syringe SUBCUT 30 mg Q24H TORRES Administration Escitalopram Oxalate 5 mg 07/29/20 09:00 07/29/20 08:20 Escitalopram Oxalate 5 Mg Tablet PO 5 mg DAILY TORRES Administration Folic Acid 1 mg 07/29/20 09:00 07/29/20 08:20 Folic Acid 1 Mg Tablet PO 1 mg DAILY TORRES Administration Insulin Human Lispro 0 unit 07/28/20 21:00 07/29/20 11:35 Insulin Lispro 100 Unit/Ml 3 Ml Vial SUBCUT 2 unit QIDACHS [facility] [place] Administration Protocol Lorazepam 1 mg 07/28/20 17:33 07/28/20 22:54 Lorazepam 1 Mg Tablet PO 1 mg DAILY PRN Administration anxiety Memantine 10 mg 07/28/20 21:00 07/29/20 08:20 Memantine Hcl 10 Mg Tablet PO 10 mg BID TORRES Administration Mirtazapine 45 mg 07/28/20 21:00 07/28/20 22:54 Mirtazapine 15 Mg Tablet PO 45 mg BEDTIME TORRES Administration Non-Formulary Medication 5 mg 07/28/20 21:00 Ivabradine PO BID [facility] Ondansetron HCl 4 mg 07/28/20 17:33 07/29/20 12:35 Ondansetron Hcl 4 Mg/2 Ml Vial IVPUSH 4 mg Q8H PRN Administration Nausea and Vomiting Oxybutynin Chloride 10 mg 07/29/20 09:00 07/29/20 08:20 Oxybutynin Chloride Er 5 Mg Tab.Er.24 PO 10 mg DAILY [facility] Administration Pharmacy Consult 1 each 07/28/20 12:29 Consult Rx Perform Med Rec MISCELLANE ONCE PRN Consult order Sodium Chloride 3 ml 07/29/20 00:00 07/29/20 08:19 0.9 % Sodium Chloride Flush 3 Ml Syringe IVFLUSH 3 ml QSHIFT [facility] Administration Labs CBC & Chem 7: 07/29/20 06:17 07/29/20 06:17 Assessment and Plan (1) COVID-19: Status: Acute (2) Acute renal failure: Status: Acute (3) UTI (urinary tract infection): Status: Acute (4) Chronic kidney disease (CKD), stage III (moderate): Status: Acute (5) Abdominal pain: Status: Acute Assessment and Plan: 74-year-old Guatemalan-speaking female with history of CKD, diabetes, hypertension, dyslipidemia among others who was recently diagnosed with UTI and treated with Bactrim brought to the emergency department with confusion found to have SHABANA, hyperkalemia and incidentally COVID-19 SHABANA On admission Creatinine 2.2 from baseline 0.99 patient treated with IV fluid creatinine normalized will DC IV Hyperkalemia Secondary to Bactrim/SHABANA potassium normalized with IV hydration Toxic metabolic encephalopathy Resolved was likely Related to UTI, SHABANA in setting of underlying cognitive impairment Abdominal pain/ UTI Abdominal pain is improved, patient being treated as outpatient with Bactrim, urinalysis unremarkable blood cultures pending, will continue IV Levaquin No urine culture done as outpatient COVID-19 positive Not currently requiring oxygen, no shortness of breath,Continue supportive care CHF No acute exacerbation, Ivabrandine NF,does not appear to be on diuretic, monitor clinical course DC IV fluid DM Blood sugar trending up takes insulin at home, continue SSI, POC Mood Continue escitalopram, Ativan, mirtazapine Hypertension Have low blood pressure currently trending up will resume Coreg and lisinopril GERD Resume famotidine Cognitive impairment Continue Namenda Dyslipidemia Continue statin, hold Zetia Urinary incontinence Continue oxybutynin Morbid obesity BMI 40.2, likely contributing to diabetes and hypertension, weight reduction recommended DVT prophylaxis-Lovenox
[2020-07-29 16:35] LABS: Glucose, Whole Blood 164 mg/dL (60-115)
[2020-07-29] MEDS: Enoxaparin Sodium 30 MG/0.3 ML SYRINGE SUBCUT (16:44)
[2020-07-29] MEDS: carvediloL 12.5 MG TABLET PO (20:59)
[2020-07-29] MEDS: Mirtazapine 15 MG TABLET 45 MG PO (20:59)
[2020-07-29 21:04] LABS: Glucose, Whole Blood 171 mg/dL (60-115)
[2020-07-30 04:00] VITALS: BP 161/78; PULSE 95; RESP 12; TEMP 37.6; O2SAT 94
[2020-07-30 06:54] LABS: Hematocrit 34.1 % (37-47); Hemoglobin 11.1 g/dl (12.0-16.0)
[2020-07-30 07:40] LABS: Glucose, Whole Blood 131 mg/dL (60-115)
[2020-07-30 07:54] VITALS: BP 131/66; PULSE 86; RESP 13; TEMP 37; O2SAT 94
[2020-07-30] MEDS: carvediloL 12.5 MG TABLET PO (09:20)
[2020-07-30] MEDS: Memantine HCl 10 MG TABLET PO (09:20)
[2020-07-30] MEDS: Atorvastatin Calcium 40 MG TABLET PO (09:20)
[2020-07-30] MEDS: Famotidine 20 MG TABLET PO (09:20)
[2020-07-30] MEDS: Folic Acid 1 MG TABLET PO (09:20)
[2020-07-30] MEDS: Escitalopram Oxalate 5 MG TABLET PO (09:20)
[2020-07-30] MEDS: 0.9 % Sodium Chloride Flush 3 ML SYRINGE IVFLUSH ×2 (09:20→13:00)
[2020-07-30 11:21] LABS: Glucose, Whole Blood 257 mg/dL (60-115)
[2020-07-30 11:30] VITALS: BP 111/71; PULSE 92; RESP 20; TEMP 37.7; O2SAT 95
--- NOTE | 2020-07-30 12:03 | P.DS_ITS ---
DS: Providers Provider Date of Service: 07/30/20 Date of admission: 07/28/20 17:33 Primary care physician: Unknown Physician DS: Diagnosis Discharge Diagnosis (1) COVID-19: Status: Acute (2) Acute renal failure: Status: Acute (3) UTI (urinary tract infection): Status: Acute (4) Chronic kidney disease (CKD), stage III (moderate): Status: Acute (5) Abdominal pain: Status: Acute DS: Medications Discharge Medications Home Medications: Home Medications Medication Instructions Recorded Confirmed albuterol sulfate 90 mcg/actuation 2 puff INHALATION Q6H PRN 05/30/20 07/28/20 aerosol inhaler blood sugar diagnostic #10 ea 05/30/20 06/19/20 escitalopram oxalate 5 mg tablet 5 mg PO DAILY 05/30/20 07/28/20 ivabradine 5 mg tablet 5 mg PO BID tab 05/30/20 07/28/20 mirtazapine 45 mg tablet 45 mg PO BEDTIME 05/30/20 07/28/20 blood-glucose meter #1 ea 06/19/20 06/19/20 memantine 10 mg tablet 10 mg PO BID 06/19/20 07/28/20 calcium carbonate 500 mg calcium 500 mg PO BID tab 07/23/20 07/28/20 (1,250 mg) tablet Previous Rx's Medication Instructions Recorded acetaminophen 500 mg tablet 500 mg PO Q8H PRN 30 Days #90 tab 05/30/20 lorazepam 1 mg tablet 1 mg PO DAILY PRN 30 Days #30 tab 05/30/20 ezetimibe 10 mg tablet 10 mg PO DAILY #28 tab 06/05/20 famotidine 20 mg tablet 40 mg PO DAILY #56 tab 06/05/20 folic acid 1 mg tablet 1 mg PO DAILY #28 tab 06/05/20 oxybutynin chloride 5 mg tablet 5 mg PO BID #56 tab 06/05/20 atorvastatin 40 mg tablet 40 mg PO DAILY #28 tab 06/16/20 repaglinide 0.5 mg tablet 0.5 mg PO TID 90 Days #270 tab 06/19/20 pen needle, diabetic 32 gauge x #100 ea 06/26/20 carvedilol 12.5 mg tablet 12.5 mg PO BID 90 Days #180 tab 07/24/20 dulaglutide 1.5 mg/0.5 mL 1.5 mg SUBCUT QWEEK #2 ml 07/24/20 subcutaneous pen injector secukinumab 150 mg/mL subcutaneous 150 mg SUBCUT Q4W #2 ml 07/24/20 pen injector albuterol sulfate 2.5 mg INHALATION Q6H PRN #300 ml 07/25/20 insulin degludec 100 unit/mL (3 30 unit SUBCUT DAILY 30 Days #9 ml 07/28/20 mL) subcutaneous pen lisinopril 20 mg PO DAILY #30 tab 07/30/20 DS: Summary Hospital Course Hospital Course: History of presenting illness 74-year-old French-speaking female who was recently diagnosed with UTI. Patient was recently treated with Bactrim for UTI diagnosed on July 23. Her daughter brought her to the emergency room today stating that she has been confused. 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 Her lab work revealed acute kidney injury with a serum creatinine of 2.2 to associated hyperkalemia with a potassium of 5.3. Her blood pressure is in the 80s on arrival, this improved with 3 L of IV fluid. She was given a dose of IV levofloxacin. A COVID screening test was done for hospital admission and she was incidentally found to be positive for coronavirus. Hospital course 74-year-old French-speaking female with history of CKD, diabetes, hypertension, dyslipidemia among others who was recently diagnosed with UTI and treated with Bactrim brought to the emergency department with confusion and abdominal pain found to have SHABANA, hyperkalemia and incidentally COVID-19 infection. SHABANA/hyperkalemia On admission Creatinine 2.2 from baseline 0.99 patient treated with IV fluid creatinine normalized was likely related to Bactrim Toxic metabolic encephalopathy Resolved was likely Related to UTI, SHABANA in setting of underlying cognitive impairment. Abdominal pain/ UTI Abdominal pain has resolved, repeat UA is negative, patient took Bactrim as outpatient, received 2 days of Levaquin in house, blood cultures negative patient does not need further antibiotics. COVID-19 positive Not currently requiring oxygen, no shortness of breath, recommended to self isolate for next 8 days, called daughter and informed her about positive COVID result CHF No acute exacerbation, continue Ivabrandine and Coreg In regard to DM , hypercholesterolemia and mood disorder resume all home medication Hypertension Dose of lisinopril reduced due to few low blood sugar readings continue Coreg and lisinopril 20 mg daily BMI 40.2, likely contributing to diabetes and hypertension, weight reduction recommended Time Spent with Patient Time attestation: Total time spent providing and/or coordinating discharge services: Discharge coordination time: Greater than 30 minutes Physical Exam Vital Signs: Vital Signs: Last Vital Signs Temp 99.8 F 07/30/20 11:30 Pulse 92 07/30/20 11:30 Resp 20 07/30/20 11:30 BP 111/71 07/30/20 11:30 Pulse Ox 95 07/30/20 11:30 Body Mass Index 40.2 General resting comfortably in no acute distress. Neck is supple no JVD. CVS regular rate rhythm, Respiratory lungs clear to auscultation, diminished at bases, no respiratory distress Gastrointestinal abdomen soft, nontender, bowel sounds audible, no guarding , no rigidity. Extremities no clubbing cyanosis or edema. Neuro nonfocal , speech clear. Skin no rash DS: Data Data Completed and Pending Labs on day of discharge: Laboratory Tests 07/28/20 07/28/20 07/28/20 13:22 13:22 13:22 WBC 10.7 RBC 3.66 L Hgb 11.3 L Hct 35.3 L MCV 96.4 MCH 30.9 MCHC 32.0 RDW 12.9 Plt Count 170 D MPV 11.0 Immature Gran % (Auto) 0.3 Neut % (Auto) 69.9 Lymph % (Auto) 21.4 [place] % (Auto) 8.1 Eos % (Auto) 0.1 Baso % (Auto) 0.2 Lymph # (Auto) 2.3 [place] # (Auto) 0.9 Eos # (Auto) 0.0 Baso # (Auto) 0.0 Abs Immat Gran (auto) 0.03 Absolute Neuts (auto) 7.5 Absolute Nucleated RBC 0.000 Nucleated RBC % (auto) 0.0 Sodium 135 Potassium 5.3 H D Chloride 102 Carbon Dioxide 21 L Anion Gap 17 BUN 41 H D Creatinine 2.22 H Estim Creat Clear Calc 25.2 Estimated GFR 22 POC Glucose Random Glucose 327 H Lactic Acid 2.0 Calcium 9.1 D Magnesium 1.9 Total Bilirubin 0.3 Direct Bilirubin < 0.2 AST 21 ALT 14 Alkaline Phosphatase 57 D Troponin I High Sens Total Protein 7.3 Albumin 3.8 Urine Color Urine Appearance Urine pH Ur Specific [place] Urine Protein Urine Glucose (UA) Urine Ketones Urine Blood Urine Nitrite Ur Leukocyte Esterase COVID-19 (MARCELO) COVID-19 Clin Com 07/28/20 07/28/20 07/28/20 13:22 13:22 13:22 WBC RBC Hgb Hct MCV MCH MCHC RDW Plt Count MPV Immature Gran % (Auto) Neut % (Auto) Lymph % (Auto) [place] % (Auto) Eos % (Auto) Baso % (Auto) Lymph # (Auto) [place] # (Auto) Eos # (Auto) Baso # (Auto) Abs Immat Gran (auto) Absolute Neuts (auto) Absolute Nucleated RBC Nucleated RBC % (auto) Sodium Potassium Chloride Carbon Dioxide Anion Gap BUN Creatinine Estim Creat Clear Calc Estimated GFR POC Glucose Random Glucose Lactic Acid Calcium Magnesium Total Bilirubin Direct Bilirubin AST ALT Alkaline Phosphatase Troponin I High Sens 9.5 Total Protein Albumin Urine Color YELLOW Urine Appearance HAZY Urine pH 5.5 Ur Specific [place] >= 1.030 H Urine Protein TRACE Urine Glucose (UA) 100 H Urine Ketones NEG Urine Blood NEG Urine Nitrite NEG Ur Leukocyte Esterase NEG COVID-19 (MARCELO) Positive A COVID-19 [employer] Com See Note 07/29/20 07/29/20 07/29/20 06:17 06:17 07:04 WBC 10.7 RBC 3.50 L Hgb 10.8 L Hct 33.8 L MCV 96.6 MCH 30.9 MCHC 32.0 RDW 13.0 Plt Count 172 MPV 10.4 Immature Gran % (Auto) 0.4 Neut % (Auto) 62.0 Lymph % (Auto) 28.1 [place] % (Auto) 8.6 Eos % (Auto) 0.8 Baso % (Auto) 0.1 Lymph # (Auto) 3.0 [place] # (Auto) 0.9 Eos # (Auto) 0.1 Baso # (Auto) 0.0 Abs Immat Gran (auto) 0.04 H Absolute Neuts (auto) 6.6 Absolute Nucleated RBC 0.000 Nucleated RBC % (auto) 0.0 Sodium 140 Potassium 4.6 Chloride 108 Carbon Dioxide 24 Anion Gap 13 BUN 23 H Creatinine 1.13 Estim Creat Clear Calc 49.6 Estimated GFR 47 POC Glucose 111 Random Glucose 109 D Lactic Acid Calcium 8.6 Magnesium Total Bilirubin Direct Bilirubin AST ALT Alkaline Phosphatase Troponin I High Sens Total Protein Albumin Urine Color Urine Appearance Urine pH Ur Specific [place] Urine Protein Urine Glucose (UA) Urine Ketones Urine Blood Urine Nitrite Ur Leukocyte Esterase COVID-19 (MARCELO) COVID-19 [employer] 07/29/20 07/29/20 07/29/20 11:20 16:26 20:59 WBC RBC Hgb Hct MCV MCH MCHC RDW Plt Count MPV Immature Gran % (Auto) Neut % (Auto) Lymph % (Auto) [place] % (Auto) Eos % (Auto) Baso % (Auto) Lymph # (Auto) [place] # (Auto) Eos # (Auto) Baso # (Auto) Abs Immat Gran (auto) Absolute Neuts (auto) Absolute Nucleated RBC Nucleated RBC % (auto) Sodium Potassium Chloride Carbon Dioxide Anion Gap BUN Creatinine Estim Creat Clear Calc Estimated GFR POC Glucose 183 H 164 H 171 H Random Glucose Lactic Acid Calcium Magnesium Total Bilirubin Direct Bilirubin AST ALT Alkaline Phosphatase Troponin I High Sens Total Protein Albumin Urine Color Urine Appearance Urine pH Ur Specific [place] Urine Protein Urine Glucose (UA) Urine Ketones Urine Blood Urine Nitrite Ur Leukocyte Esterase COVID-19 (MARCELO) COVID-[employer] 07/30/20 07/30/20 07/30/20 06:31 07:26 11:18 WBC RBC Hgb 11.1 L Hct 34.1 L MCV MCH MCHC RDW Plt Count MPV Immature Gran % (Auto) Neut % (Auto) Lymph % (Auto) [place] % (Auto) Eos % (Auto) Baso % (Auto) Lymph # (Auto) [place] # (Auto) Eos # (Auto) Baso # (Auto) Abs Immat Gran (auto) Absolute Neuts (auto) Absolute Nucleated RBC Nucleated RBC % (auto) Sodium Potassium Chloride Carbon Dioxide Anion Gap BUN Creatinine Estim Creat Clear Calc Estimated GFR POC Glucose 131 H 257 H Random Glucose Lactic Acid Calcium Magnesium Total Bilirubin Direct Bilirubin AST ALT Alkaline Phosphatase Troponin I High Sens Total Protein Albumin Urine Color Urine Appearance Urine pH Ur Specific [place] Urine Protein Urine Glucose (UA) Urine Ketones Urine Blood Urine Nitrite Ur Leukocyte Esterase COVID-19 (MARCELO) [employer] Preliminary micro results at discharge 07/28/20 13:57 Blood Culture - Preliminary Blood - Venous No growth after 24 hours. 07/28/20 13:22 Blood Culture - Preliminary Blood - Venous No growth after 24 hours. Discharge Plan Discharge Patient Disposition: Home, Self-Care Referrals: Physician,Unknown [Primary Care Provider] - Discharge Medications: New lisinopril 20 mg tablet 20 mg PO DAILY Qty: 30 RF: 0 Continued oxybutynin chloride 5 mg tablet 5 mg PO BID Qty: 56 RF: 2 folic acid 1 mg tablet 1 mg PO DAILY Qty: 28 RF: 2 ezetimibe 10 mg tablet 10 mg PO DAILY Qty: 28 RF: 2 famotidine 20 mg tablet 40 mg PO DAILY Qty: 56 RF: 2 atorvastatin 40 mg tablet 40 mg PO DAILY Qty: 28 RF: 3 (DME) pen needle, diabetic [BD Cori 2nd Gen Pen Needle] 32 gauge x 5/32 needle See Rx Instructions .MEDSUPPLY Qty: 100 RF: 4 dulaglutide 1.5 mg/0.5 mL pen injector 1.5 mg subcut QWEEK Qty: 2 RF: 3 carvedilol 12.5 mg tablet 12.5 mg PO BID 90 Days Qty: 180 RF: 1 albuterol sulfate 2.5 mg /3 mL (0.083 %) solution for nebulization 2.5 mg inhalation Q6H PRN (Reason: bronchospasm) Qty: 300 RF: 0 Tresiba FlexTouch U-100 100 unit/mL (3 mL) insulin pen 30 unit subcut DAILY 30 Days Qty: 9 RF: 2 albuterol sulfate [ProAir HFA] 90 mcg/actuation HFA aerosol inhaler 2 puff inhalation Q6H PRN (Reason: Shortness Of Breath) RF: 0 acetaminophen 500 mg tablet 500 mg PO Q8H PRN (Reason: fever) 30 Days Qty: 90 RF: 3 lorazepam 1 mg tablet 1 mg PO DAILY PRN (Reason: anxiety) 30 Days Qty: 30 RF: 1 calcium carbonate 500 mg calcium (1,250 mg) tablet 500 mg PO BID RF: 0 secukinumab 150 mg/mL pen injector 150 mg subcut Q4W Qty: 2 RF: 3 memantine 10 mg tablet 10 mg PO BID RF: 0 repaglinide 0.5 mg tablet 0.5 mg PO TID 90 Days Qty: 270 RF: 1 escitalopram oxalate 5 mg tablet 5 mg PO DAILY RF: 0 mirtazapine 45 mg tablet 45 mg PO BEDTIME RF: 0 (DME) blood sugar diagnostic Strip See Rx Instructions strip Not Applicable BID Qty: 10 RF: 0 ivabradine 5 mg tablet 5 mg PO BID RF: 0 Discontinued lisinopril 40 mg tablet 40 mg PO DAILY RF: 0 No Action (DME) blood-glucose meter Kit See Rx Instructions ea .ROUTE .MEDSUPPLY Qty: 1 RF: 0 Discharge Orders: Discharge Order (Routine); Ordered 07/30/20 Ordered By: Kandy Ceballos Diet: diabetic diet and low fat, low cholesterol Activity on Discharge: As tolerated Visit Report Forms: Patient Portal Discharge page Care Plan Goals: good control of blood sugar and blood pressure Health Concerns: COVID-19 infection continue isolationx 10 days and wear mask Plan of Treatment: Outpatient follow-up with PCP
[2020-07-30] MEDS: Insulin Lispro 100 UNIT/ML 3 ML VIAL SUBCUT (13:00)
[2020-07-30] MEDS: levoFLOXacin 500 MG TABLET PO (13:00)
== END 2020-07-30 14:29 | disposition home or self-care (01) | DRG 682 ==
LOC: HO.ED 15:30 → HO.ISO 21:30
PROVIDERS: Physician Assistant Medical; Admitting Provider Hospitalist; Emergency Provider Emergency Medicine; PCP Internal Medicine; Visit Provider Hospitalist
DX: N17.9 Acute kidney failure, unspecified (principal); U07.1 COVID-19; G92 Toxic encephalopathy; N39.0 Urinary tract infection, site not specified; Z68.41 Body mass index [BMI] 40.0-44.9, adult; I13.0 Hypertensive heart and chronic kidney disease with heart failure and stage 1 through stage 4 chronic kidney disease, or unspecified chronic kidney disease; Z96.653 Presence of artificial knee joint, bilateral; F03.90 Unspecified dementia, unspecified severity, without behavioral disturbance, psychotic disturbance, mood disturbance, and anxiety; E87.5 Hyperkalemia; K21.9 Gastro-esophageal reflux disease without esophagitis; R32 Unspecified urinary incontinence; E78.5 Hyperlipidemia, unspecified; E66.01 Morbid (severe) obesity due to excess calories; E11.22 Type 2 diabetes mellitus with diabetic chronic kidney disease; N18.30 Chronic kidney disease, stage 3 unspecified; I50.9 Heart failure, unspecified; T36.8X5A Adverse effect of other systemic antibiotics, initial encounter; Y92.9 Unspecified place or not applicable; Z88.0 Allergy status to penicillin; Z88.5 Allergy status to narcotic agent; Z88.6 Allergy status to analgesic agent; Z79.4 Long term (current) use of insulin; Z79.899 Other long term (current) drug therapy
CPT/HCPCS: 36415; 71045; 74176; 80048; 80076; 81003; 82947; 83605; 83735; 84484; 85014; 85018; 85025; 87040; 87635; 93005; 96361; 96365; 99285; 99291; J1650; J1956; J2405

== ENCOUNTER 2020-08-15 08:53 | Outpatient (REF) | payer MEDICARE, SELFPAY ==
[2020-08-15 09:47] LABS: MANUAL DIFF FLAG NO
[2020-08-15 09:56] LABS: Glucose Urine UA NEG (NEG); Leukocyte Esterase Urine NEG (NEG); Nitrite Urine NEG (NEG); Specific Gravity - Urine >= 1.030 (1.005-1.025); Urine Blood NEG (NEG); Urine Ketones NEG (NEG); Urine Protein 1+ MG/DL (NEG-TRACE)
[2020-08-15 09:56] LABS: Basophils Percent Auto 0.4 % (0-2); Eosinophils Absolute Auto 0.2 X10*3/uL (0.0-0.4); Eosinophils Percent Auto 2.4 % (0-4); Hematocrit 38.6 % (37-47); Hemoglobin 12.3 g/dl (12.0-16.0); Imm Gran Abs Auto 0.01 X10*3/uL (0.00-0.03); Imm Gran Pct Auto 0.1 % (0.0-0.4); Lymphocytes Absolute Auto 2.7 X10*3/uL (1.2-4.9); Lymphocytes Percent Auto 35.9 % (20-40); Mean Corpuscular HGB Conc 31.9 g/dl (31.0-35.0); Mean Corpuscular Hemoglobin 30.8 pg (27.0-33.0); Mean Corpuscular Volume 96.5 fL (80-98); Mean Platelet Volume 10.6 fL (9.4-12.3); Monocytes Absolute Auto 0.7 X10*3/uL (0.1-1.2); Monocytes Percent Auto 9.7 % (2-11); Neutrophils Absolute Auto 3.9 X10*3/uL (2.0-8.3); Neutrophils Percent Auto 51.5 % (45-73); Platelet Count 239 X10*3/uL (160-400); Red Cell Distribution Width 13.1 % (11.0-16.0); White Blood Count 7.6 X10*3/uL (4.8-10.8)
[2020-08-15 09:57] LABS: Appearance Urine CLEAR; Color Urine YELLOW
[2020-08-15 10:18] LABS: Alanine Aminotransferase 17 U/L (0-31); Albumin Level 4.2 g/dL (3.5-5.0); Alkaline Phosphatase 64 U/L (39-117); Anion Gap 16 (12-20); Aspartate Amino Transferase 17 U/L (5-31); Bilirubin Total 0.7 mg/dL (0.0-1.0); Blood Urea Nitrogen 19 mg/dL (9-16); C Reactive Protein 0.11 mg/dL (< or = 0.50); Carbon Dioxide 29 mmol/L (22-29); Chloride 100 mmol/L (96-108); Cholesterol 173 mg/dL; Estimated Glomerular Filt Rate > 60; Glucose Fasting 208 mg/dL (60-99); HDL Cholesterol 45 mg/dL; LDL Cholesterol Calculated 87 mg/dl; Potassium 4.5 mmol/l (3.3-5.1); Sodium 140 mmol/L (135-145); Total Protein 7.7 g/dL (6.5-8.0); Triglycerides 206 mg/dL
[2020-08-15 10:32] LABS: Estimated Average Glucose 194 mg/dL; Hemoglobin A1c % 8.4 %
[2020-08-15 10:35] LABS: Creatinine Urine 138.91 mg/dL; Microalbum/Creatinine Ratio Ur 344.8 ug/mg cr
[2020-08-15 10:45] LABS: TSH reflex Free T4 1.38 mIU/mL (0.32-4.0)
[2020-08-15 10:48] LABS: Erythrocyte Sedimentation Rate 49 MM/HR (0-20)
[2020-08-15 10:53] LABS: RBC Urine 0 /HPF (0); Renal Epithelial Cells Urine TRACE /LPF; Squamous Epithelial Cell Urine 1+ /LPF; WBC Urine 0 /HPF (0-4)
== END 2020-08-15 08:54 | disposition home or self-care (01) ==
LOC: HO.LAB 08:53
PROVIDERS: PCP Internal Medicine; Referring Provider Internal Medicine; Visit Provider Student in an Organized Health Care Education/Training Program
DX: I12.9 Hypertensive chronic kidney disease with stage 1 through stage 4 chronic kidney disease, or unspecified chronic kidney disease (principal); E11.22 Type 2 diabetes mellitus with diabetic chronic kidney disease; N18.30 Chronic kidney disease, stage 3 unspecified; N39.46 Mixed incontinence; L40.50 Arthropathic psoriasis, unspecified
CPT/HCPCS: 36415; 80053; 80061; 81001; 82043; 83036; 84443; 85025; 85652; 86140

== ENCOUNTER 2020-09-23 11:18 | Outpatient (REF) | payer MEDICARE, SELFPAY ==
--- NOTE | ~2020-09-23 | XR_ITS ---
EXAMINATION: XR FOOT, RIGHT CLINICAL INFORMATION: Right foot pain. COMPARISON: None TECHNIQUE: AP, lateral, and oblique views of the right foot. FINDINGS: Moderate degenerative changes are seen at the first metatarsophalangeal joint. Mild distal interphalangeal degenerative joint changes are seen. There is no acute fracture or dislocation. The tarsal bones are normally aligned. Small plantar and retrocalcaneal spurs are seen. Mild to moderate small vessel arteriosclerosis is noted. XR/XR foot RT 2V IMPRESSION: Degenerative joint changes as detailed above most consistent with osteoarthritis. No acute abnormality.
[2020-09-23 13:18] LABS: Estimated Average Glucose 217 mg/dL; Hemoglobin A1c % 9.2 %
[2020-09-23 14:00] LABS: Erythrocyte Sedimentation Rate 38 MM/HR (0-20)
[2020-09-23 14:48] LABS: Basophils Percent Auto 0.5 % (0-2); Eosinophils Absolute Auto 0.3 X10*3/uL (0.0-0.4); Eosinophils Percent Auto 3.4 % (0-4); Hematocrit 35.8 % (37-47); Hemoglobin 12.1 g/dl (12.0-16.0); Imm Gran Abs Auto 0.02 X10*3/uL (0.00-0.03); Imm Gran Pct Auto 0.2 % (0.0-0.4); Lymphocytes Percent Auto 35.3 % (20-40); MANUAL DIFF FLAG NO; Mean Corpuscular HGB Conc 33.8 g/dl (31.0-35.0); Mean Corpuscular Hemoglobin 31.4 pg (27.0-33.0); Mean Platelet Volume 11.2 fL (9.4-12.3); Monocytes Absolute Auto 0.6 X10*3/uL (0.1-1.2); Neutrophils Absolute Auto 4.5 X10*3/uL (2.0-8.3); Neutrophils Percent Auto 53.6 % (45-73); Platelet Count 211 X10*3/uL (160-400); Red Blood Count 3.85 X10*6/uL (4.20-5.50); Red Cell Distribution Width 13.1 % (11.0-16.0); White Blood Count 8.5 X10*3/uL (4.8-10.8)
[2020-09-25 14:52] LABS: IgA 295 mg/dL (70-320); IgG 1401 mg/dL (600-1540); IgM 77 mg/dL (50-300)
[2020-09-25 15:18] LABS: Prot Elec - Albumin 3.9 g/dL (3.8-4.8); Prot Elec - Alpha1 0.3 g/dL (0.2-0.3); Prot Elec - Alpha2 0.9 g/dL (0.5-0.9); Prot Elec - Beta 1 0.5 g/dL (0.4-0.6); Prot Elec - Beta 2 0.5 g/dL (0.2-0.5); Prot Elec - Gamma 1.3 g/dL (0.8-1.7); Prot Elec - Total Protein 7.4 g/dL (6.1-8.1)
== END 2020-09-23 11:19 | disposition home or self-care (01) ==
LOC: HO.LAB 11:18
PROVIDERS: Nurse Practitioner Gerontology; Absent Provider Internal Medicine; PCP Internal Medicine; Visit Provider Student in an Organized Health Care Education/Training Program
DX: E11.21 Type 2 diabetes mellitus with diabetic nephropathy (principal); L40.50 Arthropathic psoriasis, unspecified; N18.31 Chronic kidney disease, stage 3a; M79.671 Pain in right foot; Z88.6 Allergy status to analgesic agent; Z88.0 Allergy status to penicillin; Z88.8 Allergy status to other drugs, medicaments and biological substances; Z79.4 Long term (current) use of insulin; Z79.899 Other long term (current) drug therapy
CPT/HCPCS: 36415; 73620; 82784; 83036; 84155; 84165; 85025; 85652; 86334; 99212

== ENCOUNTER → 2020-09-26 12:26 | Outpatient (BNVA) | payer MEDICARE, SELFPAY | PROVIDERS: PCP Internal Medicine; Visit Provider Nurse Practitioner Gerontology | DX: I12.9 Hypertensive chronic kidney disease with stage 1 through stage 4 chronic kidney disease, or unspecified chronic kidney disease (principal); E11.21 Type 2 diabetes mellitus with diabetic nephropathy; E11.22 Type 2 diabetes mellitus with diabetic chronic kidney disease; N18.31 Chronic kidney disease, stage 3a; E66.9 Obesity, unspecified; Z68.36 Body mass index [BMI] 36.0-36.9, adult; Z79.4 Long term (current) use of insulin; Z71.3 Dietary counseling and surveillance | CPT/HCPCS: 82947; 99212 ==

== ENCOUNTER 2020-10-27 08:37 | Outpatient (REF) | payer MEDICARE, SELFPAY ==
--- NOTE | ~2020-10-27 | US_ITS ---
EXAMINATION: US THYROID CLINICAL INFORMATION: Nontoxic multinodular goiter. COMPARISON: Ultrasound soft tissue head/neck thyroid dated 05/01/2020. CT neck with intravenous contrast dated 12/28/2014. TECHNIQUE: Linear transducer grayscale and color Doppler examination with attention to the region of the thyroid. FINDINGS: SIZE: Measurements of the thyroid lobes and nodules are given in sagittal, anteroposterior and transverse dimensions respectively. Right Thyroid Lobe: 5.04 x 1.60 x 1.31 cm, volume 5.51 mL. Previously 4.3 x 1.9 x 1.2 cm, volume 5.1 mL. Parenchyma: The gland echotexture is heterogeneous. Thyroid vascularity is normal. Left Thyroid Lobe: 4.47 x 1.19 x 1.33 cm, volume 3.69 mL. Previously 4.2 x 1.9 x 1.7 cm, volume 7.1 mL. Parenchyma: The gland echotexture is heterogeneous. Thyroid vascularity is normal. Isthmus: 0.48 cm in maximum AP dimension. Previously 0.40 cm. Estimated total number of nodules greater than or equal to 1 cm: 2. Outside Upholsterer nodules are described as follows: 1. Location: Right inferior. Size: 1.23 x 0.71 x 0.90 cm, volume 0.41 mL. Previously: 0.88 x 0.71 x 0.61 cm, volume 0.20 mL. Nodule characteristics: Composition: Spongiform (0). Echogenicity: Anechoic (0). Shape: Not taller than wide (0). Margins: Smooth (0). Echogenic Foci: None (0). ACR TI-RADS total points: 0 ACR TI-RADS category: 1 Significant change in size (>/= 20% in 2 dimensions and minimal increase of 2 mm or 50% or greater increase in volume): Yes Change in features: No Change in ACR TI-RADS risk category: n/a 2. Location: Right inferior. Size: 0.60 x 0.21 x 0.29 cm, volume 0.2 mL. Previously: 0.60 x 0.42 x 0.37 cm, volume 0.04 mL. Nodule characteristics: Composition: Cystic(0). ACR TI-RADS total points: 0 Previous: ACR TI-RADS category: 1 Previous: Significant change in size (>/= 20% in 2 dimensions and minimal increase of 2 mm or 50% or greater increase in volume): No Change in features: No Change in ACR TI-RADS risk category: n/a 3. Location: Left mid. Size: 1.14 x 0.52 x 0.87 cm, volume 0.27 mL. Previously: 1.2 x 0.60 x 0.70 cm, volume 0.26 mL. Nodule characteristics: Composition: Spongiform (0). Echogenicity: Anechoic (0). Shape: Not taller than wide (0). Margins: Smooth (0). Echogenic Foci: None (0). ACR TI-RADS total points: 0 ACR TI-RADS category: 1 Significant change in size (>/= 20% in 2 dimensions and minimal increase of 2 mm or 50% or greater increase in volume): No Change in features: No Change in ACR TI-RADS risk category: n/a NODES: No lymphadenopathy is seen in the tissue surrounding the thyroid gland. US/US thyroid IMPRESSION: Normal-sized slightly heterogeneous thyroid gland. No significant change in small bilateral thyroid nodules.. ACR TI-RADS RECOMMENDATION REFERENCE: Ultrasound-guided fine-needle aspiration, followup ultrasound, no further follow up. * TR1 (0 point) and TR 2 (2 points): No FNA or follow up * TR3 (3 points): FNA if more than or equal to 2.5 cm in maximum dimension, followup ultrasound in 1, 3 and 5 years if 1.5 to 2.4 cm in maximum dimension. * TR4 (4-6 points): FNA if more than or equal to 1.5 cm in maximum dimension, followup ultrasound in 1, 2, 3 and 5 years if 1 to 1.4 cm in maximum dimension. * TR5 (more than or equal to 7 points): FNA if more than or equal to 1 cm in maximum dimension, followup ultrasound every year for 5 years if 0.5 to 0.9 cm in maximum dimension. * TR3, TR4 or TR5 nodules that are below the size threshold for follow up receive no follow up.
== END 2020-10-27 08:38 | disposition home or self-care (01) ==
LOC: HO.US 08:37
PROVIDERS: Visit Provider Internal Medicine Endocrinology, Diabetes & Metabolism
DX: E04.2 Nontoxic multinodular goiter (principal); I42.8 Other cardiomyopathies; I44.7 Left bundle-branch block, unspecified; R00.0 Tachycardia, unspecified; E11.8 Type 2 diabetes mellitus with unspecified complications; R53.83 Other fatigue; Z79.899 Other long term (current) drug therapy
CPT/HCPCS: 76536; 99212

== ENCOUNTER 2020-11-04 13:22 | Outpatient (REF) | payer MEDICARE, SELFPAY ==
[2020-11-04 15:08] LABS: MANUAL DIFF FLAG NO
[2020-11-04 15:14] LABS: Basophils Percent Auto 0.4 % (0-2); Eosinophils Absolute Auto 0.3 X10*3/uL (0.0-0.4); Eosinophils Percent Auto 2.6 % (0-4); Hematocrit 40.4 % (37-47); Hemoglobin 13.2 g/dl (12.0-16.0); Imm Gran Abs Auto 0.02 X10*3/uL (0.00-0.03); Imm Gran Pct Auto 0.2 % (0.0-0.4); Lymphocytes Absolute Auto 4.1 X10*3/uL (1.2-4.9); Lymphocytes Percent Auto 37.4 % (20-40); Mean Corpuscular HGB Conc 32.7 g/dl (31.0-35.0); Mean Corpuscular Hemoglobin 30.8 pg (27.0-33.0); Mean Corpuscular Volume 94.4 fL (80-98); Mean Platelet Volume 10.4 fL (9.4-12.3); Monocytes Absolute Auto 0.9 X10*3/uL (0.1-1.2); Neutrophils Absolute Auto 5.6 X10*3/uL (2.0-8.3); Neutrophils Percent Auto 51.4 % (45-73); Platelet Count 245 X10*3/uL (160-400); Red Blood Count 4.28 X10*6/uL (4.20-5.50); Red Cell Distribution Width 12.5 % (11.0-16.0); White Blood Count 10.9 X10*3/uL (4.8-10.8)
[2020-11-04 15:39] LABS: Alanine Aminotransferase 16 U/L (0-31); Albumin Level 4.6 g/dL (3.5-5.0); Alkaline Phosphatase 74 U/L (39-117); Anion Gap 14 (12-20); Aspartate Amino Transferase 19 U/L (5-31); Bilirubin Total 0.5 mg/dL (0.0-1.0); Blood Urea Nitrogen 19 mg/dL (9-16); C Reactive Protein 0.14 mg/dL (< or = 0.50); Calcium 10.7 mg/dL (8.4-10.2); Carbon Dioxide 31 mmol/L (22-29); Chloride 97 mmol/L (96-108); Estimated Glomerular Filt Rate 44; Glucose Random 241 mg/dL (60-115); Potassium 4.5 mmol/L (3.3-5.1); Sodium 137 mmol/L (135-145); Total Protein 8.3 g/dL (6.5-8.0)
[2020-11-04 15:52] LABS: Erythrocyte Sedimentation Rate 34 MM/HR (0-20)
== END 2020-11-04 13:23 | disposition home or self-care (01) ==
LOC: HO.LAB 13:22
PROVIDERS: PCP Internal Medicine; Visit Provider Student in an Organized Health Care Education/Training Program
DX: L40.50 Arthropathic psoriasis, unspecified (principal)
CPT/HCPCS: 36415; 80053; 85025; 85652; 86140; 99212

== ENCOUNTER 2020-11-11 15:32 | Outpatient (REF) | payer MEDICARE, SELFPAY ==
[2020-11-12 12:56] LABS: Calcium (PTHI) 10.1 mg/dL (8.6-10.4); PTHI 40 pg/mL (14-64)
== END 2020-11-11 15:33 | disposition home or self-care (01) ==
LOC: HO.LAB 15:32
PROVIDERS: Absent Provider Internal Medicine Endocrinology, Diabetes & Metabolism; PCP Internal Medicine; Visit Provider Student in an Organized Health Care Education/Training Program
DX: E83.52 Hypercalcemia (principal)
CPT/HCPCS: 36415; 83970

== ENCOUNTER → 2020-11-13 10:13 | Outpatient (BNVA) | payer MEDICARE, SELFPAY | PROVIDERS: PCP Internal Medicine; Visit Provider Nurse Practitioner Gerontology | DX: I12.9 Hypertensive chronic kidney disease with stage 1 through stage 4 chronic kidney disease, or unspecified chronic kidney disease (principal); E11.21 Type 2 diabetes mellitus with diabetic nephropathy; E11.22 Type 2 diabetes mellitus with diabetic chronic kidney disease; N18.31 Chronic kidney disease, stage 3a; E78.5 Hyperlipidemia, unspecified; E66.9 Obesity, unspecified; Z68.36 Body mass index [BMI] 36.0-36.9, adult; Z79.4 Long term (current) use of insulin; Z71.3 Dietary counseling and surveillance | CPT/HCPCS: 82947; 99212 ==

== ENCOUNTER → 2020-11-27 10:10 | Outpatient (BNVA) | payer MEDICARE, SELFPAY | PROVIDERS: PCP Internal Medicine; Visit Provider Nurse Practitioner Gerontology | CPT/HCPCS: Q3014 ==

== ENCOUNTER → 2021-01-07 14:02 | Outpatient (REF) | payer MEDICARE, SELFPAY | LOC: HO.SL 14:02 | PROVIDERS: PCP Internal Medicine; Visit Provider Internal Medicine | DX: G47.33 Obstructive sleep apnea (adult) (pediatric) (principal) | CPT/HCPCS: 95806 ==

== ENCOUNTER → 2021-01-14 14:33 | Outpatient (BNVA) | payer MEDICARE, SELFPAY | PROVIDERS: PCP Internal Medicine; Visit Provider Internal Medicine Endocrinology, Diabetes & Metabolism | DX: E04.2 Nontoxic multinodular goiter (principal) | CPT/HCPCS: 99212 ==

== ENCOUNTER 2021-01-15 09:29 | Outpatient (REF) | payer MEDICARE, SELFPAY ==
[2021-01-15 10:26] LABS: MANUAL DIFF FLAG NO
[2021-01-15 10:31] LABS: Basophils Percent Auto 0.5 % (0-2); Eosinophils Absolute Auto 0.3 X10*3/uL (0.0-0.4); Eosinophils Percent Auto 3.3 % (0-4); Hematocrit 38.5 % (37-47); Hemoglobin 12.4 g/dl (12.0-16.0); Imm Gran Abs Auto 0.02 X10*3/uL (0.00-0.03); Imm Gran Pct Auto 0.3 % (0.0-0.4); Lymphocytes Absolute Auto 3.2 X10*3/uL (1.2-4.9); Lymphocytes Percent Auto 40.4 % (20-40); Mean Corpuscular HGB Conc 32.2 g/dl (31.0-35.0); Mean Corpuscular Hemoglobin 31.2 pg (27.0-33.0); Mean Corpuscular Volume 96.7 fL (80-98); Mean Platelet Volume 10.5 fL (9.4-12.3); Monocytes Absolute Auto 0.6 X10*3/uL (0.1-1.2); Monocytes Percent Auto 8.1 % (2-11); Neutrophils Absolute Auto 3.8 X10*3/uL (2.0-8.3); Neutrophils Percent Auto 47.4 % (45-73); Platelet Count 242 X10*3/uL (160-400); Red Blood Count 3.98 X10*6/uL (4.20-5.50); Red Cell Distribution Width 12.5 % (11.0-16.0)
[2021-01-15 10:49] LABS: Glucose Urine UA NEG (NEG); Leukocyte Esterase Urine TRACE (NEG); Nitrite Urine NEG (NEG); Specific Gravity - Urine 1.025 (1.005-1.025); UACC Culture Trigger YES; Urine Blood NEG (NEG); Urine Ketones NEG (NEG); Urine Protein TRACE MG/DL (NEG-TRACE)
[2021-01-15 10:53] LABS: Appearance Urine CLEAR; Color Urine YELLOW
[2021-01-15 11:01] LABS: Estimated Average Glucose 220 mg/dL; Hemoglobin A1c % 9.3 %
[2021-01-15 11:08] LABS: Alanine Aminotransferase 19 U/L (0-31); Albumin Level 4.2 g/dL (3.5-5.0); Alkaline Phosphatase 70 U/L (39-117); Anion Gap 15 (12-20); Aspartate Amino Transferase 24 U/L (5-31); Bilirubin Total 0.6 mg/dL (0.0-1.0); Blood Urea Nitrogen 22 mg/dL (9-16); C Reactive Protein 0.15 mg/dL (< or = 0.50); Calcium 10.2 mg/dL (8.4-10.2); Carbon Dioxide 30 mmol/L (22-29); Chloride 99 mmol/L (96-108); Estimated Glomerular Filt Rate 45; Glucose Random 270 mg/dL (60-115); Potassium 5.1 mmol/L (3.3-5.1); Sodium 139 mmol/L (135-145); Total Protein 7.5 g/dL (6.5-8.0)
[2021-01-15 11:21] LABS: Alanine Aminotransferase 19 U/L (0-31); Albumin Level 4.2 g/dL (3.5-5.0); Alkaline Phosphatase 69 U/L (39-117); Anion Gap 13 (12-20); Aspartate Amino Transferase 23 U/L (5-31); Bilirubin Total 0.6 mg/dL (0.0-1.0); Blood Urea Nitrogen 22 mg/dL (9-16); Calcium 10.1 mg/dL (8.4-10.2); Carbon Dioxide 31 mmol/L (22-29); Chloride 100 mmol/L (96-108); Cholesterol 158 mg/dL; Estimated Glomerular Filt Rate 47; Glucose Fasting 273 mg/dL (60-99); HDL Cholesterol 44 mg/dL; LDL Cholesterol Calculated 71 mg/dl; Potassium 4.9 mmol/L (3.3-5.1); Sodium 139 mmol/L (135-145); Total Protein 7.5 g/dL (6.5-8.0); Triglycerides 215 mg/dL
[2021-01-15 11:32] LABS: Erythrocyte Sedimentation Rate 28 MM/HR (0-20)
[2021-01-15 11:34] LABS: RBC Urine 0 /HPF (0); Squamous Epithelial Cell Urine 1+ /LPF
[2021-01-15 11:47] LABS: Creatinine Urine 189.15 mg/dL; Microalbum/Creatinine Ratio Ur 39.1 ug/mg cr
== END 2021-01-15 09:30 | disposition home or self-care (01) ==
LOC: HO.LAB 09:29
PROVIDERS: Absent Provider Internal Medicine Endocrinology, Diabetes & Metabolism; PCP Internal Medicine; Visit Provider Student in an Organized Health Care Education/Training Program
DX: I12.9 Hypertensive chronic kidney disease with stage 1 through stage 4 chronic kidney disease, or unspecified chronic kidney disease (principal); N18.31 Chronic kidney disease, stage 3a; E11.22 Type 2 diabetes mellitus with diabetic chronic kidney disease; E11.21 Type 2 diabetes mellitus with diabetic nephropathy; L40.50 Arthropathic psoriasis, unspecified; E78.00 Pure hypercholesterolemia, unspecified; I42.9 Cardiomyopathy, unspecified; Z79.4 Long term (current) use of insulin
CPT/HCPCS: 36415; 80053; 80061; 81001; 81003; 82043; 83036; 85025; 85652; 86140; 87086

== ENCOUNTER → 2021-01-16 13:38 | Outpatient (BNVA) | payer MEDICARE, SELFPAY | PROVIDERS: PCP Internal Medicine; Visit Provider Nurse Practitioner Gerontology | DX: E11.21 Type 2 diabetes mellitus with diabetic nephropathy (principal); E11.22 Type 2 diabetes mellitus with diabetic chronic kidney disease; I12.9 Hypertensive chronic kidney disease with stage 1 through stage 4 chronic kidney disease, or unspecified chronic kidney disease; N18.31 Chronic kidney disease, stage 3a; E78.5 Hyperlipidemia, unspecified; E66.9 Obesity, unspecified; E04.2 Nontoxic multinodular goiter; Z79.4 Long term (current) use of insulin | CPT/HCPCS: 82947; 99212 ==

== ENCOUNTER 2021-01-27 10:03 | Outpatient (REF) | payer MEDICARE, SELFPAY ==
--- NOTE | ~2021-01-27 | FL_ITS ---
EXAMINATION: FL BARIUM SWALLOW CLINICAL INFORMATION: Dysphagia. COMPARISON: None TECHNIQUE: Barium swallow examination is performed using fluoroscopic evaluation in addition to multiple fluoroscopic spot views. The patient is imaged both upright and prone and using both thick and thin sulfate along with effervescent granules. Patient was also administered a barium tablet. Fluoroscopy time: 1.1 minutes DAP: 13 Gycm2 Images: 44 FINDINGS: The swallowing mechanism is normal. No aspiration or penetration is seen. There is mild gastroesophageal reflux. No significant hernia is seen. The barium tablet passed freely into the stomach. No mass or stricture is seen. FL/FL barium swallow IMPRESSION: Mild gastroesophageal reflux. Otherwise, unremarkable exam.
== END 2021-01-27 10:04 | disposition home or self-care (01) ==
LOC: HO.XRAY 10:03
PROVIDERS: PCP Internal Medicine; Visit Provider Internal Medicine
DX: R13.10 Dysphagia, unspecified (principal)
CPT/HCPCS: 74220

== ENCOUNTER 2021-02-05 17:04 | Emergency (ER) | payer MEDICARE, SELFPAY ==
--- NOTE | ~2021-02-05 | CT_ITS ---
EXAMINATION: CT ABDOMEN AND PELVIS WITHOUT CONTRAST CLINICAL INFORMATION: Right flank pain COMPARISON: 07/28/2020 TECHNIQUE: Multidetector volumetric imaging was performed from the superior aspect of the liver through the pubic symphysis. Sagittal and coronal reformatted images were obtained on the technologist's workstation. This CT examination was performed using dose optimization techniques as appropriate, variously including the following: *Automated exposure control *Adjustment of mA and/or kV according to patient size (this includes techniques or standardized protocols for targeted exams where dose is matched to indication/reason for exam; i.e. extremities or head) *Use of iterative reconstruction technique DLP: 671 mGy-cm FINDINGS: LUNG BASES: The visualized lung bases are unremarkable. LIVER, GALLBLADDER, AND BILIARY TREE: The liver is normal in size, shape, and attenuation. No focal hepatic lesion or biliary ductal dilatation is identified. The gallbladder is unremarkable with no evidence of radiopaque gallstones, gallbladder wall thickening, or obvious pericholecystic inflammatory changes. PANCREAS: Unremarkable. SPLEEN: Unremarkable. ADRENAL GLANDS: Redemonstrated small right adrenal myelolipoma. Left adrenal gland is unremarkable. KIDNEYS AND URETERS: The kidneys are normal in size, shape, and attenuation. Redemonstrated left lower pole renal cyst. Redemonstrated tiny hyperdense lesion along the lateral left kidney, suggestive of a proteinaceous or hemorrhagic cyst. No hydronephrosis, hydroureter, or calculi seen. BLADDER: Unremarkable. GASTROINTESTINAL TRACT: Colonic diverticulosis is noted. The small and large bowel are otherwise unremarkable without evidence of obstruction or pericolonic inflammatory change. The appendix is unremarkable. No free fluid or free air is seen. ABDOMINAL WALL: No significant hernia is appreciated. LYMPH NODES: Normal. VASCULAR: There is atherosclerotic calcification along the aorta. PELVIC VISCERA: Patient is status post hysterectomy. OSSEOUS STRUCTURES: Degenerative changes are noted in the spine. CT/CT abdomen pelvis wo con IMPRESSION: No acute abnormality identified in the abdomen/pelvis. Chronic findings as noted above.
[2021-02-05 17:25] VITALS: BP 155/96; PULSE 99; RESP 20; TEMP 36.5; O2SAT 95; BMI 35.7
--- NOTE | 2021-02-05 21:40 | ED_ITS ---
HPI - General Adult General Chief complaint: General Medical Stated complaint: flank pain Time Seen by Provider: 02/05/21 21:27 Source: patient Mode of arrival: ambulatory Limitations: no limitations History of Present Illness HPI narrative: Patient comes emergency room complaining of right-sided flank pain for about 3 days. Patient states the discomfort started out with dysuria approximately 1 week ago. Patient denies hematuria, no fever or chills. Then, 3 days ago patient noticed that she has the right flank pain. Patient states the pain is constant, nonradiating, denies any trauma/falls. Denies nausea vomiting or diarrhea Related Data Home Medications Medication Instructions Recorded Confirmed albuterol sulfate 90 mcg/actuation 2 puff INHALATION Q6H PRN 05/30/20 01/20/21 aerosol inhaler blood sugar diagnostic #10 ea 05/30/20 01/20/21 blood-glucose meter #1 ea 06/19/20 01/20/21 memantine 10 mg tablet 10 mg PO BID 06/19/20 01/20/21 escitalopram oxalate 10 mg tablet 10 mg PO DAILY 10/27/20 01/20/21 furosemide 40 mg tablet 40 mg PO DAILY 10/27/20 01/20/21 secukinumab 150 mg/mL subcutaneous 150 mg SUBCUT Q4W ml 01/14/21 01/20/21 pen injector albuterol sulfate 2.5 mg CONTINUOUS NEBULIZATION Q6H 01/20/21 PRN ml clindamycin HCl 300 mg capsule 300 mg PO TID 01/20/21 01/20/21 sennosides 8.6 mg tablet 17.2 mg PO DAILY 01/20/21 01/20/21 Previous Rx's Medication Instructions Recorded acetaminophen 500 mg tablet 500 mg PO Q8H PRN 30 Days #90 tab 05/30/20 pen needle, diabetic 32 gauge x #100 ea 06/26/20 insulin degludec 100 unit/mL (3 30 unit SUBCUT DAILY 30 Days #9 ml 07/28/20 mL) subcutaneous pen lisinopril 20 mg tablet 20 mg PO DAILY 90 Days #90 tab 08/13/20 ivabradine 5 mg tablet 5 mg PO DAILY 30 Days #30 tab 09/25/20 sulfasalazine 500 mg tablet 500 mg PO DAILY #30 tab 10/23/20 atorvastatin 40 mg tablet 40 mg PO DAILY #90 tab 11/17/20 carvedilol 12.5 mg tablet 12.5 mg PO BID 90 Days #180 tab 12/18/20 calcium carbonate 500 mg (1,250 1 tab PO BID #56 tab 12/19/20 mg)-vitamin D3 200 unit tablet dicyclomine 20 mg tablet 20 mg PO QID PRN #112 tab 12/19/20 ezetimibe 10 mg tablet 10 mg PO DAILY #28 tab 12/19/20 famotidine 20 mg tablet 40 mg PO DAILY #56 tab 12/19/20 folic acid 1 mg tablet 1 mg PO DAILY #28 tab 12/19/20 oxybutynin chloride 5 mg tablet 5 mg PO BID #56 tab 12/19/20 dulaglutide 3 mg/0.5 mL 3 mg SUBCUT QWEEK #6 ml 01/16/21 subcutaneous pen injector empagliflozin 25 mg tablet 25 mg PO QAM #90 tab 01/16/21 levofloxacin 500 mg PO DAILY #9 tab 02/06/21 Allergies Allergy/AdvReac Type Severity Reaction Status Date / Time Penicillins Allergy Severe ANAPHYLAXIS Verified 02/05/21 17:25 aspirin [Aspirin] Allergy Unknown STOMACH Verified 02/05/21 17:25 UPSET, stomach pain baclofen Allergy Unknown dizziness Verified 02/05/21 17:25 oxycodone [Percocet] Allergy Unknown itchiness Verified 02/05/21 17:25 Review of Systems Review of Systems: Constitutional : No Weight loss, No Fever, No Chills, No Night Sweats, No Fatigue, No Malaise ENT/Mouth : No Hearing loss, No Ear Pain, No Nasal Congestion, No Sinus Pain, No Hoarseness, No sore throat, No Rhinorrhea, No Swallowing Difficulty Eyes: No Eye Pain, No Swelling, No Redness, No Foreign Body, No Discharge, No Vision Changes Cardiovascular : No Chest Pain, No SOB, No Dyspnea on Exertion, No Orthopnea, No Edema, No Palpitations Respiratory : No Cough, No Sputum, No Wheezing, No Smoke Exposure, No Dyspnea Gastrointestinal : No Nausea, No Vomiting, No Diarrhea, No Constipation, No abdominal Pain, No Hematochezia, No Melena Genitourinary : Complaining of dysuria, right-sided flank pain, No Urinary Frequency, No Hematuria, No Urinary Incontinence, No Urgency, No Urinary Flow Changes, No Hesitancy Musculoskeletal : No joint pain, No Myalgias, No Joint Swelling Skin : No Skin Lesions, No rash Neuro : No Weakness, No Numbness, No Paresthesias, No Loss of Consciousness, No Dizziness, No Headache Psych : No Anxiety/Panic, No Depression, No SI/HI/AH/VH, No Social Issues, Heme/Lymph: No Bruising, No Bleeding,No Lymphadenopathy Endocrine : No Polyuria, No Polydipsia, No Temperature Intolerance [facility] Past Medical History Medical History Anxiety Asthma Benign essential hypertension Cardiomyopathy Chronic kidney disease (CKD), stage III (moderate) Constipation Dementia Depression Diabetes mellitus Dyslipidemia Dysphagia GERD without esophagitis Hypertension Insomnia LBBB (left bundle branch block) Mixed stress and urge urinary incontinence NICM (nonischemic cardiomyopathy) Non-toxic multinodular goiter Obesity (BMI 30-39.9) Psoriatic arthritis Pure hypercholesterolemia Sinus tachycardia 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 2 diabetes mellitus with other diabetic kidney complication UTI (urinary tract infection) UTI (urinary tract infection) Surgical History History of section History of knee replacement procedure of right knee History of left knee replacement History of partial hysterectomy History of repair of rotator cuff History of shoulder surgery History of surgery Family History Family History (Updated 01/20/21 @ 10:43 by TATI Pereyra) Father Prostate cancer Mouth cancer Mother Type 2 diabetes mellitus Hyperlipidemia Diabetes Hypertension Other Mental health problem Social History Social History Household Members: None Housing: Apartment Alcohol intake: never Patient Tobacco Use Status: Never used Tobacco Second Hand Smoke Exposure: No Advance Directives: No Advance Directives Information Provided: No service: No Current occupational status: retired Physical Exam Vital Signs: Vital Signs: Last Vital Signs Temp 97.7 F 02/05/21 17:25 Pulse 99 02/05/21 17:25 Resp 16 02/05/21 22:20 BP 155/96 H 02/05/21 17:25 Pulse Ox 95 02/05/21 17:25 Body Mass Index 35.7 Appearance: Alert. Oriented X3. No acute distress. Anxious Eyes: Pupils equal, round and reactive to light. ENT: Pharynx normal. Neck: Normal inspection. Neck supple. No lymph nodes noted. No crepitus CVS: Normal heart rate and rhythm. Pulses normal. Normal S1 and S2 Respiratory: No respiratory distress. Breath sounds normal. No Wheezing. No rales Abdomen: Soft and nontender. No rigidity. No distention. Positive right CVA te nderness Skin: Skin warm and dry. Normal skin color. Normal skin turgor. Extremities: No lower extremity edema. No Lacerations. No Rash Neuro: Oriented X 3. No motor deficit. No sensory deficit. Moving all extermities. No slurred speech. Course Course Course Narrative: Discussed the labs and imaging with the patient and her daughter, patient being discharged. Sepsis is not suspected at this time, patient is allergic to penicillins, treating a mild UTI with levofloxacin now. Given that the patient has flank pain with UTI, she does have clinical pyelonephritis. Sepsis is not suspected. White blood cell count within normal limits, as well as the lactic acid and normal blood pressure and heart rate. Medical Decision Making Lab Data Result diagrams: 02/05/21 22:10 02/05/21 22:45 Labs: Lab Results 02/05/21 02/05/21 02/05/21 Range/Units 22:10 22:10 22:10 WBC 10.3 (4.8-10.8) X10*3/uL RBC 4.07 L (4.20-5.50) X10*6/uL Hgb 12.9 (12.0-16.0) g/dl Hct 38.0 (37-47) % MCV 93.4 (80-98) fL MCH 31.7 (27.0-33.0) pg MCHC 33.9 (31.0-35.0) g/dl RDW 12.3 (11.0-16.0) % Plt Count 179 D (160-400) X10*3/uL MPV 9.9 (9.4-12.3) fL Immature Gran % (Auto) 0.3 (0.0-0.4) % Neut % (Auto) 48.3 (45-73) % Lymph % (Auto) 40.0 (20-40) % [place] % (Auto) 8.9 (2-11) % Eos % (Auto) 2.3 (0-4) % Baso % (Auto) 0.2 (0-2) % Lymph # (Auto) 4.1 (1.2-4.9) X10*3/uL [place] # (Auto) 0.9 (0.1-1.2) X10*3/uL Eos # (Auto) 0.2 (0.0-0.4) X10*3/uL Baso # (Auto) 0.0 (0.0-0.2) X10*3/uL Abs Immat Gran (auto) 0.03 (0.00-0.03) X10*3/uL Absolute Neuts (auto) 5.0 (2.0-8.3) X10*3/uL Absolute Nucleated RBC 0.000 (0.0-0.012) X10*3/uL Nucleated RBC % (auto) 0.0 (0.0-0.2) /100WBC Sodium (135-145) mmol/L Potassium (3.3-5.1) mmol/L Chloride (96-108) mmol/L Carbon Dioxide (22-29) mmol/L Anion Gap (12-20) BUN (9-16) mg/dL Creatinine (0.5-1.4) mg/dL Estim Creat Clear Calc Estimated GFR Random Glucose (60-115) mg/dL Lactic Acid 2.0 (0.5-2.0) mmol/L Calcium (8.4-10.2) mg/dL Total Bilirubin (0.0-1.0) mg/dL Direct Bilirubin (0.0-0.5) mg/dL AST (5-31) U/L ALT (0-31) U/L Alkaline Phosphatase (39-117) U/L Total Protein (6.5-8.0) g/dL Albumin (3.5-5.0) g/dL Lipase (8-78) U/L Urine Color YELLOW Urine Appearance CLEAR Urine pH 6.0 (5.0-8.0) Ur Specific [place] 1.020 (1.005-1.025) Urine Protein 1+ H (NEG-TRACE) MG/DL Urine Glucose (UA) NEG (NEG) MG/DL Urine Ketones NEG (NEG) MG/DL Urine Blood NEG (NEG) Urine Nitrite NEG (NEG) Ur Leukocyte Esterase 1+ H (NEG) Urine RBC 1-4 (0) /HPF Urine WBC 10-14 H (0-4) /HPF Ur Squamous Epith Cells 1+ /LPF Ur Renal Epithelial Cell 1+ /LPF Urine Bacteria 2+ /LPF 02/05/21 Range/Units 22:45 WBC (4.8-10.8) X10*3/uL RBC (4.20-5.50) X10*6/uL Hgb (12.0-16.0) g/dl Hct (37-47) % MCV (80-98) fL MCH (27.0-33.0) pg MCHC (31.0-35.0) g/dl RDW (11.0-16.0) % Plt Count (160-400) X10*3/uL MPV (9.4-12.3) fL Immature Gran % (Auto) (0.0-0.4) % Neut % (Auto) (45-73) % Lymph % (Auto) (20-40) % [place] % (Auto) (2-11) % Eos % (Auto) (0-4) % Baso % (Auto) (0-2) % Lymph # (Auto) (1.2-4.9) X10*3/uL [place] # (Auto) (0.1-1.2) X10*3/uL Eos # (Auto) (0.0-0.4) X10*3/uL Baso # (Auto) (0.0-0.2) X10*3/uL Abs Immat Gran (auto) (0.00-0.03) X10*3/uL Absolute Neuts (auto) (2.0-8.3) X10*3/uL Absolute Nucleated RBC (0.0-0.012) X10*3/uL Nucleated RBC % (auto) (0.0-0.2) /100WBC Sodium 137 (135-145) mmol/L Potassium 4.0 (3.3-5.1) mmol/L Chloride 101 (96-108) mmol/L Carbon Dioxide 28 (22-29) mmol/L Anion Gap 12 (12-20) BUN 14 (9-16) mg/dL Creatinine 0.85 (0.5-1.4) mg/dL Estim Creat Clear Calc 60.9 Estimated GFR > 60 Random Glucose 147 H D (60-115) mg/dL Lactic Acid (0.5-2.0) mmol/L Calcium 10.2 (8.4-10.2) mg/dL Total Bilirubin 0.5 (0.0-1.0) mg/dL Direct Bilirubin 0.2 (0.0-0.5) mg/dL AST 16 (5-31) U/L ALT 12 (0-31) U/L Alkaline Phosphatase 57 (39-117) U/L Total Protein 7.6 (6.5-8.0) g/dL Albumin 4.3 (3.5-5.0) g/dL Lipase 104 H (8-78) U/L Urine Color Urine Appearance Urine pH (5.0-8.0) Ur Specific [place] (1.005-1.025) Urine Protein (NEG-TRACE) MG/DL Urine Glucose (UA) (NEG) MG/DL Urine Ketones (NEG) MG/DL Urine Blood (NEG) Urine Nitrite (NEG) Ur Leukocyte Esterase (NEG) Urine RBC (0) /HPF Urine WBC (0-4) /HPF Ur Squamous Epith Cells /LPF Ur Renal Epithelial Cell /LPF Urine Bacteria /LPF Imaging Data CT scan - abdomen: Radiologist's impression: FINDINGS: LUNG BASES: The visualized lung bases are unremarkable. LIVER, GALLBLADDER, AND BILIARY TREE: The liver is normal in size, shape, and attenuation. No focal hepatic lesion or biliary ductal dilatation is identified. The gallbladder is unremarkable with no evidence of radiopaque gallstones, gallbladder wall thickening, or obvious pericholecystic inflammatory changes. PANCREAS: Unremarkable. SPLEEN: Unremarkable. ADRENAL GLANDS: Redemonstrated small right adrenal myelolipoma. Left adrenal gland is unremarkable. KIDNEYS AND URETERS: The kidneys are normal in size, shape, and attenuation. Redemonstrated left lower pole renal cyst. Redemonstrated tiny hyperdense lesion along the lateral left kidney, suggestive of a proteinaceous or hemorrhagic cyst. No hydronephrosis, hydroureter, or calculi seen. BLADDER: Unremarkable. GASTROINTESTINAL TRACT: Colonic diverticulosis is noted. The small and large bowel are otherwise unremarkable without evidence of obstruction or pericolonic inflammatory change. The appendix is unremarkable. No free fluid or free air is seen. ABDOMINAL WALL: No significant hernia is appreciated. LYMPH NODES: Normal. VASCULAR: There is atherosclerotic calcification along the aorta. PELVIC VISCERA: Patient is status post hysterectomy. OSSEOUS STRUCTURES: Degenerative changes are noted in the spine. CT/CT abdomen pelvis wo con IMPRESSION: No acute abnormality identified in the abdomen/pelvis. Chronic findings as noted above. Discharge Plan Discharge Clinical Impression: Acute pyelonephritis Patient Disposition: Home, Self-Care Instructions: Urinary Tract Infection in Older Adults (ED) Additional Instructions: Please follow-up with your primary care physician tomorrow. If you have any worsening or new symptoms, please return to the emergency room or call 911 Prescriptions: New levofloxacin 500 mg tablet 500 mg PO DAILY Qty: 9 RF: 0 No Action (DME) pen needle, diabetic [BD Cori 2nd Gen Pen Needle] 32 gauge x 5/32 needle See Rx Instructions .MEDSUPPLY Qty: 100 RF: 4 Tresiba FlexTouch U-100 100 unit/mL (3 mL) insulin pen 30 unit subcut DAILY 30 Days Qty: 9 RF: 2 lisinopril 20 mg tablet 20 mg PO DAILY 90 Days Qty: 90 RF: 3 ivabradine [Corlanor] 5 mg tablet 5 mg PO DAILY 30 Days Qty: 30 RF: 5 sulfasalazine 500 mg tablet 500 mg PO DAILY Qty: 30 RF: 3 atorvastatin 40 mg tablet 40 mg PO DAILY Qty: 90 RF: 1 carvedilol 12.5 mg tablet 12.5 mg PO BID 90 Days Qty: 180 RF: 2 famotidine 20 mg tablet 40 mg PO DAILY Qty: 56 RF: 3 folic acid 1 mg tablet 1 mg PO DAILY Qty: 28 RF: 3 oxybutynin chloride 5 mg tablet 5 mg PO BID Qty: 56 RF: 3 ezetimibe 10 mg tablet 10 mg PO DAILY Qty: 28 RF: 3 dicyclomine 20 mg tablet 20 mg PO QID PRN (Reason: for cramps) Qty: 112 RF: 3 calcium carbonate-vitamin D3 [Oyster Shell Calcium-Vit D3] 500 mg(1,250mg) - 200 unit tablet 1 tab PO BID Qty: 56 RF: 3 clindamycin HCl 300 mg capsule 300 mg PO TID RF: 0 sennosides 8.6 mg tablet 17.2 mg PO DAILY RF: 0 albuterol sulfate 2.5 mg /3 mL (0.083 %) solution for nebulization 2.5 mg continuous nebulization Q6H PRN (Reason: bronchospasm) RF: 0 albuterol sulfate [ProAir HFA] 90 mcg/actuation HFA aerosol inhaler 2 puff inhalation Q6H PRN (Reason: Shortness Of Breath) RF: 0 acetaminophen 500 mg tablet 500 mg PO Q8H PRN (Reason: fever) 30 Days Qty: 90 RF: 3 secukinumab 150 mg/mL pen injector 150 mg subcut Q4W RF: 0 escitalopram oxalate 10 mg tablet 10 mg PO DAILY RF: 0 furosemide 40 mg tablet 40 mg PO DAILY RF: 0 memantine 10 mg tablet 10 mg PO BID RF: 0 (DME) blood-glucose meter Kit See Rx Instructions ea .ROUTE .MEDSUPPLY Qty: 1 RF: 0 (DME) blood sugar diagnostic Strip See Rx Instructions strip Not Applicable BID Qty: 10 RF: 0 Trulicity 3 mg/0.5 mL pen injector 3 mg subcut QWEEK Qty: 6 RF: 1 Jardiance 25 mg tablet 25 mg PO QAM Qty: 90 RF: 1
[2021-02-05 22:20] VITALS: RESP 16
[2021-02-05 22:20] LABS: MANUAL DIFF FLAG NO
[2021-02-05] MEDS: Morphine Sulfate 4 MG/ML CARTRIDGE IVPUSH (22:20)
[2021-02-05 22:21] LABS: Basophils Percent Auto 0.2 % (0-2); Eosinophils Absolute Auto 0.2 X10*3/uL (0.0-0.4); Eosinophils Percent Auto 2.3 % (0-4); Glucose Urine UA NEG (NEG); Hemoglobin 12.9 g/dl (12.0-16.0); Imm Gran Abs Auto 0.03 X10*3/uL (0.00-0.03); Imm Gran Pct Auto 0.3 % (0.0-0.4); Leukocyte Esterase Urine 1+ (NEG); Lymphocytes Absolute Auto 4.1 X10*3/uL (1.2-4.9); Mean Corpuscular HGB Conc 33.9 g/dl (31.0-35.0); Mean Corpuscular Hemoglobin 31.7 pg (27.0-33.0); Mean Corpuscular Volume 93.4 fL (80-98); Mean Platelet Volume 9.9 fL (9.4-12.3); Monocytes Absolute Auto 0.9 X10*3/uL (0.1-1.2); Monocytes Percent Auto 8.9 % (2-11); Neutrophils Percent Auto 48.3 % (45-73); Nitrite Urine NEG (NEG); Platelet Count 179 X10*3/uL (160-400); Red Blood Count 4.07 X10*6/uL (4.20-5.50); Red Cell Distribution Width 12.3 % (11.0-16.0); UACC Culture Trigger YES; Urine Blood NEG (NEG); Urine Ketones NEG (NEG); Urine Protein 1+ MG/DL (NEG-TRACE); White Blood Count 10.3 X10*3/uL (4.8-10.8)
[2021-02-05 22:37] LABS: Appearance Urine CLEAR; Bacteria Urine 2+ /LPF; Color Urine YELLOW; Renal Epithelial Cells Urine 1+ /LPF; Squamous Epithelial Cell Urine 1+ /LPF
[2021-02-05 23:18] LABS: Alanine Aminotransferase 12 U/L (0-31); Albumin Level 4.3 g/dL (3.5-5.0); Alkaline Phosphatase 57 U/L (39-117); Anion Gap 12 (12-20); Aspartate Amino Transferase 16 U/L (5-31); Bilirubin Direct 0.2 mg/dL (0.0-0.5); Bilirubin Total 0.5 mg/dL (0.0-1.0); Blood Urea Nitrogen 14 mg/dL (9-16); Calcium 10.2 mg/dL (8.4-10.2); Carbon Dioxide 28 mmol/L (22-29); Chloride 101 mmol/L (96-108); Creatinine Clr Calc Pharmacy 60.9; Estimated Glomerular Filt Rate > 60; Glucose Random 147 mg/dL (60-115); Lipase 104 U/L (8-78); Sodium 137 mmol/L (135-145); Total Protein 7.6 g/dL (6.5-8.0)
[2021-02-06] MEDS: levoFLOXacin 500 MG TABLET PO (00:01)
[2021-02-06 00:03] VITALS: RESP 16
== END 2021-02-06 00:40 | disposition home or self-care (01) ==
PROVIDERS: Emergency Provider Emergency Medicine; PCP Internal Medicine
DX: N10 Acute pyelonephritis (principal); E11.22 Type 2 diabetes mellitus with diabetic chronic kidney disease; I12.9 Hypertensive chronic kidney disease with stage 1 through stage 4 chronic kidney disease, or unspecified chronic kidney disease; N18.30 Chronic kidney disease, stage 3 unspecified; E78.5 Hyperlipidemia, unspecified; F03.90 Unspecified dementia, unspecified severity, without behavioral disturbance, psychotic disturbance, mood disturbance, and anxiety; Z79.4 Long term (current) use of insulin; Z79.02 Long term (current) use of antithrombotics/antiplatelets; Z79.899 Other long term (current) drug therapy
CPT/HCPCS: 36415; 51701; 74176; 80048; 80076; 81001; 81003; 83605; 83690; 85025; 87040; 87086; 96374; 99284; J2270

== ENCOUNTER → 2021-02-23 13:09 | Outpatient (BNVA) | payer MEDICARE, SELFPAY | PROVIDERS: PCP Internal Medicine; Visit Provider Hospitalist | DX: F51.01 Primary insomnia (principal); G47.33 Obstructive sleep apnea (adult) (pediatric); J45.20 Mild intermittent asthma, uncomplicated | CPT/HCPCS: 99202 ==

== ENCOUNTER → 2021-04-20 10:02 | Outpatient (REF) | payer MEDICARE, SELFPAY ==
[2021-04-20 11:01] LABS: Alanine Aminotransferase 15 U/L (0-31); Albumin Level 4.5 g/dL (3.5-5.0); Alkaline Phosphatase 50 U/L (39-117); Anion Gap 13 (12-20); Aspartate Amino Transferase 15 U/L (5-31); Bilirubin Total 0.6 mg/dL (0.0-1.0); Blood Urea Nitrogen 18 mg/dL (9-16); Calcium 10.1 mg/dL (8.4-10.2); Carbon Dioxide 25 mmol/L (22-29); Chloride 105 mmol/L (96-108); Cholesterol 164 mg/dL; Estimated Glomerular Filt Rate 53; Glucose Random 188 mg/dL (60-115); HDL Cholesterol 41 mg/dL; LDL Cholesterol Calculated 82 mg/dl; Potassium 4.2 mmol/L (3.3-5.1); Sodium 139 mmol/L (135-145); Total Protein 7.6 g/dL (6.5-8.0); Triglycerides 205 mg/dL
[2021-04-20 11:20] LABS: Estimated Average Glucose 163 mg/dL; Hemoglobin A1c % 7.3 %
[2021-04-20 11:22] LABS: Thyroid Stimulating Hormone 0.77 uIU/mL (0.32-4.0)
[2021-04-20 11:23] LABS: Free T4 (Free Thyroxine) 0.98 ng/dL (0.71-1.85)
--- NOTE | 2021-04-20 13:10 | CA_ITS ---
Transthoracic Echocardiogram Patient (Last, First, Middle): Debi Miguel, Gender: Female Date of : 1945 Age: 75 Procedure Date: 04/20/2021 Procedure Type: Transthoracic Echocardiogram Location: OP Height: 157.48 cm Weight: 88.91 kg BSA: 1.90 m2 Heart Rate: bpm BP: 125 / 70 mmHg Level Vial Sealer: YR/CP Referring MD: Jacek Barone MD Symptoms: I42.8 - Other cardiomyopathies Study Quality: Fair ECG Rhythm: Sinus Conclusions: - The left ventricular systolic function is low normal. The calculated ejection fraction is 53% by biplane method. - There is mild calcification of the aortic valve. Findings Left Ventricle Normal left ventricular cavity size. There is mildly increased left ventricular wall thickness. The left ventricular systolic function is low normal. The calculated ejection fraction is 53% by biplane method. There is no evidence of regional wall motion abnormalities. E/E prime ratio is between 8 and 15 consistent with indeterminate filling pressures. Evidence suggests grade I (mild) diastolic dysfunction. Right Ventricle Normal right ventricular cavity size and systolic function. There is an ICD wire seen in the right ventricle. Atria Both atria are normal in size. Aortic Valve There is mild calcification of the aortic valve. There is no aortic valve stenosis. There is no aortic valve regurgitation. Mitral Valve The mitral valve appears normal. There is trace mitral valve regurgitation. There is no mitral valve stenosis. Pulmonic Valve The pulmonic valve was not well visualized. Tricuspid Valve There is trace tricuspid valve regurgitation. The pulmonary artery systolic pressure is normal. Great Vessels The aortic annulus, sinuses of valsalva, and asc aorta are normal in size. Venous The inferior vena cava is normal in size and collapses greater than 50% with inspiration. Pericardium/Pleural There is a small loculated pericardial effusion overlying the left ventricle. Prior Study Comparison No significant change compared to prior study dated: 07/24/2019. LVEF slightly lower than prior report but image quality suboptimal in past; pericardial effusion seen in prior images. Measurements 2D Linear Measurements IVSd: 1.22 0.6-0.9/0.6-1.0 cm LVIDd: 4.57 3.9-5.3/4.2-5.9 cm LVIDd Index: 2.41 2.4-3.2/2.2-3.1 cm/m2 LVIDs: 3.16 2.0-3.6 cm LVPWd: 1.02 0.7-1.1 cm Ao Root: 3.20 2.1-3.5 cm LA Diam: 3.50 2.7-3.8/3.0-4.0 cm LAIDs Index: 1.84 1.5-2.3 cm/m2 LV Mass: 229.19 67-162/88-224 g LV Mass Index: 120.63 43-95/49-115 g/m2 LVOT Diam: 2.00 3.0+(-)1.3 cm 2D Systolic Function EF 4C: 53.20 >55% EF 2C: 55.50 >55% EF BiP: 53.10 >55% Mitral Valve MV Pk E: 0.56 MV PK A: 0.90 MV Decel Time: 325.00 E/A: 0.60 E'Lateral: 5.44 E'Medial: 4.46 E/E' Med: 12.50 E/E' Lat: 10.20 PHT: 95.00 MVA PHT: 2.32 Decel Mower: 1.72 Aortic Valve AoV Pk Raymundo: 1.18 AoV Mn Raymundo: 0.87 AoV VTI: 0.22 AoV Pk Grad: 6.00 Aov Mn Grad: 3.00 HARSHAD Cont.VTI: 2.22 LVOT LVOT Pk Raymundo: 0.73 LVOT Mn Raymundo: 0.50 LVOT VTI: 0.16 LVOT Pk Grad: 2.00 LVOT Mn Grad: 1.00 LVOT Diam: 2.00 LVOT Area: 3.14 Diastolic Function MV Pk E: 0.56 MV Pk A: 0.90 E/A: 0.60 E'Medial: 4.46 E/E' Med: 12.50 E' Laterial: 5.44 E/E' Lat: 10.20 Right Ventricle TAPSE (mm): 1.75 TVS' Raymundo: 9.03 Tricuspid Valve TR Pk Raymundo: 2.05 TR Pk Grad: 17.00 RA Press: 3.00 RVSP: 20.00 Great Vessels Aorta Ao Root-2D: 3.20 2.0-3.7 cm Ao Asc: 3.70 2.1-3.4 cm Updated in Other Vendor System with Status of Final Jacek Abisai MD electronically signed on 04/21/2021 4:17:07 PM with status of Final
== END ==
LOC: HO.CARD 10:02
PROVIDERS: Internal Medicine Endocrinology, Diabetes & Metabolism; Student in an Organized Health Care Education/Training Program; Absent Provider Internal Medicine; PCP Internal Medicine; Visit Provider Internal Medicine
DX: I42.8 Other cardiomyopathies (principal); L40.50 Arthropathic psoriasis, unspecified; E11.9 Type 2 diabetes mellitus without complications; E78.00 Pure hypercholesterolemia, unspecified; E04.2 Nontoxic multinodular goiter
CPT/HCPCS: 36415; 80053; 80061; 83036; 84439; 84443; 93306

== ENCOUNTER → 2021-04-21 12:48 | Outpatient (BNVA) | payer MEDICARE, SELFPAY | PROVIDERS: PCP Internal Medicine; Visit Provider Hospitalist | DX: G47.33 Obstructive sleep apnea (adult) (pediatric) (principal); J45.20 Mild intermittent asthma, uncomplicated; F51.01 Primary insomnia | CPT/HCPCS: 99212 ==

== ENCOUNTER 2021-04-23 12:27 | Outpatient (REF) | payer MEDICARE, SELFPAY ==
--- NOTE | ~2021-04-23 | XR_ITS ---
EXAMINATION: XR RIBS, RIGHT. CHEST . CLINICAL INFORMATION: Pleura dynamic. COMPARISON: None TECHNIQUE: 3 views of the right ribs were obtained. Chest one view. FINDINGS: Chest: The lungs are well-expanded without acute pneumonic process. There is platelike atelectasis or scarring right midlung and left lower lobe. The heart size and pulmonary vascularity is normal. There are pacer electrodes in right atrium and right ventricle. No gross bony abnormality seen. Right shoulder: There is a total right shoulder prosthesis. The prosthetic components are in satisfactory alignment. No loosening seen. There is no soft tissue swelling. No loose bodies. XR/XR ribs RT min 3V w CXR1V IMPRESSION: Platelike atelectasis in the left lower lobe and right midlung region. No acute consolidation. Bipolar right shoulder prosthesis in alignment. No loosening. No acute fracture seen.
== END 2021-04-23 12:28 | disposition home or self-care (01) ==
LOC: HO.XRAY 12:27
PROVIDERS: PCP Internal Medicine; Visit Provider Internal Medicine
DX: R07.81 Pleurodynia (principal)
CPT/HCPCS: 71101

== ENCOUNTER → 2021-05-05 13:45 | Outpatient (BNVA) | payer MEDICARE, SELFPAY | PROVIDERS: PCP Internal Medicine; Visit Provider Nurse Practitioner Gerontology | DX: E11.21 Type 2 diabetes mellitus with diabetic nephropathy (principal); E11.22 Type 2 diabetes mellitus with diabetic chronic kidney disease; I12.9 Hypertensive chronic kidney disease with stage 1 through stage 4 chronic kidney disease, or unspecified chronic kidney disease; N18.31 Chronic kidney disease, stage 3a; E78.5 Hyperlipidemia, unspecified; E66.9 Obesity, unspecified; Z79.4 Long term (current) use of insulin | CPT/HCPCS: 82947; 99212 ==

== ENCOUNTER 2021-05-06 12:52 | Outpatient (REF) | payer MEDICARE, SELFPAY ==
[2021-05-06 14:08] LABS: Appearance Urine CLEAR; Color Urine YELLOW; Glucose Urine UA >=1000 MG/DL (NEG); Leukocyte Esterase Urine NEG (NEG); Nitrite Urine NEG (NEG); Urine Blood NEG (NEG); Urine Ketones NEG (NEG); Urine Protein NEG (NEG-TRACE)
[2021-05-06 14:16] LABS: RBC Urine 0 /HPF (0); Renal Epithelial Cells Urine TRACE /LPF; Squamous Epithelial Cell Urine TRACE /LPF
== END 2021-05-06 12:53 | disposition home or self-care (01) ==
LOC: HO.LAB 12:52
PROVIDERS: Absent Provider Internal Medicine; PCP Internal Medicine; Referring Provider Internal Medicine; Visit Provider Internal Medicine
DX: I42.8 Other cardiomyopathies (principal); I44.7 Left bundle-branch block, unspecified; R00.0 Tachycardia, unspecified; E11.8 Type 2 diabetes mellitus with unspecified complications; R53.83 Other fatigue
CPT/HCPCS: 81001; 99212

== ENCOUNTER 2021-05-07 06:59 | Emergency (ER) | payer MEDICARE, SELFPAY ==
[2021-05-07 07:14] VITALS: BP 112/86; BP 118/78; PULSE 80; PULSE 89; RESP 18; TEMP 37.3; O2SAT 94; O2SAT 98; BMI 34.0
--- NOTE | 2021-05-07 08:37 | ED_ITS ---
HPI - General Adult General Chief complaint: General Medical Stated complaint: back pain Time Seen by Provider: 05/07/21 08:36 Source: patient and EMS Mode of arrival: EMS Limitations: no limitations History of Present Illness HPI narrative: 75 y/o female with history of DM2, CKD, LISSA, dysphagia, LBBB, non-ischemic cardiomyopathy, anxiety/depression, asthma, psoriatic arthritis, HTN who presnets to the ED from home via ambulance c/o right sided flank pain and lower abdominal pain that started yesterday. She also reports falling 2 weeks ago when she was dizzy at home in the setting of being started on a new medication for her diabetes. She states following face 1st and not onto her right side at that time. She reports a stinging pain when she urinates that started yesterday. She is urinating more frequently but less volume than usual. fever or chills. No nausea, vomiting, or diarrhea. MD complaint: right flank pain, dysuria Onset (ago): day(s) (1) Location: abdomen Radiation: non-radiation Severity: moderate Severity scale (1-10): 5 Quality: aching Pain Consistency: intermittent Relieving factors: none Associated symptoms: denies other symptoms Treatments prior to arrival: none Related Data Home Medications Medication Instructions Recorded Confirmed memantine 10 mg tablet 10 mg PO BID 06/19/20 05/06/21 escitalopram oxalate 10 mg tablet 10 mg PO DAILY 10/27/20 05/06/21 furosemide 40 mg tablet 40 mg PO DAILY 10/27/20 05/06/21 secukinumab 150 mg/mL subcutaneous 150 mg SUBCUT Q4W ml 01/14/21 05/06/21 pen injector albuterol sulfate 2.5 mg CONTINUOUS NEBULIZATION Q6H 01/20/21 05/06/21 PRN ml sennosides 8.6 mg tablet 17.2 mg PO DAILY 01/20/21 05/06/21 lorazepam 0.5 mg tablet 0.5 mg PO DAILY PRN 02/23/21 05/06/21 blood sugar diagnostic (FreeStyle 05/05/21 05/06/21 Lite Strips) blood-glucose meter (FreeStyle 05/05/21 05/06/21 [place] Lite) Previous Rx's Medication Instructions Recorded acetaminophen 500 mg tablet 500 mg PO Q8H PRN 30 Days #90 tab 05/30/20 pen needle, diabetic 32 gauge x #100 ea 06/26/20 (BD Cori 2nd Gen Pen Needle) insulin degludec 100 unit/mL (3 30 unit SUBCUT DAILY 30 Days #9 ml 07/28/20 mL) subcutaneous pen (Tresiba FlexTouch U-100 insulin) lisinopril 20 mg tablet 20 mg PO DAILY 90 Days #90 tab 08/13/20 atorvastatin 40 mg tablet 40 mg PO DAILY #90 tab 11/17/20 carvedilol 12.5 mg tablet 12.5 mg PO BID 90 Days #180 tab 12/18/20 sulfasalazine 500 mg tablet 500 mg PO DAILY #28 tab 02/12/21 tizanidine 4 mg tablet 4 mg PO BEDTIME PRN 15 Days #15 tab 02/24/21 ivabradine 5 mg tablet (Corlanor) 5 mg PO DAILY 30 Days #30 tab 03/11/21 calcium carbonate 500 mg (1,250 1 tab PO BID #56 tab 04/11/21 mg)-vitamin D3 200 unit tablet (Oyster Shell Calcium-Vit D3) dicyclomine 20 mg tablet 20 mg PO QID PRN #112 tab 04/11/21 ezetimibe 10 mg tablet 10 mg PO DAILY #28 tab 04/11/21 famotidine 20 mg tablet 40 mg PO DAILY #56 tab 04/11/21 folic acid 1 mg tablet 1 mg PO DAILY #28 tab 04/11/21 oxybutynin chloride 5 mg tablet 5 mg PO BID #56 tab 04/11/21 dulaglutide 3 mg/0.5 mL 3 mg SUBCUT QWEEK 90 Days #6.5 ml 04/14/21 subcutaneous pen injector (Trulicity) albuterol sulfate 90 mcg/actuation 2 puff INHALATION Q6H PRN 30 Days 04/21/21 aerosol inhaler (ProAir HFA) #8.5 g trazodone 50 mg tablet 100 mg PO BEDTIME 30 Days #60 tab 04/21/21 docusate sodium 100 mg capsule 100 mg PO BID PRN 30 Days #60 cap 04/22/21 empagliflozin 10 mg tablet 10 mg PO QAM #90 tab 05/05/21 (Jardiance) sulfamethoxazole 800 1 tab PO BID #14 tab 05/06/21 mg-trimethoprim 160 mg tablet (Bactrim DS) levofloxacin 250 mg tablet 250 mg PO Q24H #14 tab 05/07/21 Allergies Allergy/AdvReac Type Severity Reaction Status Date / Time aspirin [Aspirin] Allergy Severe STOMACH Verified 05/07/21 07:14 UPSET, stomach pain baclofen Allergy Severe dizziness Verified 05/07/21 07:14 oxycodone [Percocet] Allergy Severe itchiness Verified 05/07/21 07:14 Penicillins Allergy Severe ANAPHYLAXIS Verified 05/07/21 07:14 Review of Systems Review of Systems: Constitutional: No Fever, No Chills ENT/Mouth: No sore throat, No Rhinorrhea, No Swallowing Difficulty Cardiovascular: No Chest Pain, No SOB Respiratory: No Cough, No Sputum Gastrointestinal: No Nausea, No Vomiting, No Diarrhea, + abdominal Pain, No Hematochezia, No Melena Genitourinary: + Dysuria, + Urinary Frequency, No Hematuria Musculoskeletal: No joint pain, No Myalgias Skin: No Skin Lesions, No rash Neuro: No Weakness, No Numbness, No Dizziness, No Headache Psych: No Anxiety/Panic, No Depression Heme/Lymph: No Bruising, No Lymphadenopathy Endocrine: No Polyuria, No Polydipsia PMFSH Past Medical History Attestation statement: The following information was validated with the patient. Medical History Anxiety Asthma Benign essential hypertension Cardiomyopathy Chronic kidney disease (CKD), stage III (moderate) Constipation Dementia Depression Diabetes mellitus Dyslipidemia Dysphagia GERD without esophagitis Hypertension Insomnia Insomnia LBBB (left bundle branch block) Mixed stress and urge urinary incontinence NICM (nonischemic cardiomyopathy) (Unknown) Non-toxic multinodular goiter Obesity (BMI 30-39.9) LISSA (obstructive sleep apnea) Psoriatic arthritis Pure hypercholesterolemia Sinus tachycardia 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 2 diabetes mellitus with other diabetic kidney complication UTI (urinary tract infection) UTI (urinary tract infection) Surgical History History of section History of knee replacement procedure of right knee History of left knee replacement History of partial hysterectomy History of repair of rotator cuff History of shoulder surgery History of surgery Family History Family History Father Prostate cancer Mouth cancer Mother Type 2 diabetes mellitus Hyperlipidemia Diabetes Hypertension Other Mental health problem Social History Social History Household Members: None Housing: Apartment Alcohol intake: never Patient Tobacco Use Status: Never used Tobacco Second Hand Smoke Exposure: No Use of substances other than those prescribed or required for medical reasons: No Advance Directives: No Advance Directives Information Provided: Yes service: No Current occupational status: retired Physical Exam Vital Signs: Vital Signs: Last Vital Signs Temp 98 F 05/07/21 10: Pulse 79 05/07/21 10:26 Resp 18 05/07/21 10:26 BP 112/86 05/07/21 10: Pulse Ox 93 05/07/21 10: Body Mass Index 34.0 Appearance: Alert. Oriented X3. No acute distress. Eyes: Pupils equal, round and reactive to light. ENT: Pharynx normal. Neck: Normal inspection. Neck supple. CVS: Normal heart rate and rhythm. Pulses normal. Respiratory: No respiratory distress. Breath sounds normal. Abdomen: Normal inspection, obese, +suprapubic tenderness with guarding. Right CVA tenderness, no ecchymosis. normal +BS x4 Skin: Skin warm and dry. Normal skin color. Normal skin turgor. No rashes. Extremities: No lower extremity edema. Neuro: Oriented X 3. No motor deficit. No sensory deficit. Course Course Course Narrative: 75-year-old female presenting with right-sided flank pain, suprapubic pain, and dysuria that started yesterday. She has no nausea, vomiting, diarrhea, fever, or chills. Vital signs are normal on arrival and she is nontoxic appearing. Concern for possible UTI question possible pyelonephritis given CVA tenderness although she does not appear to be septic at this time. Will get lab workup and urinalysis for further evaluation. Reevaluation(s) Reevaluation #1: Labs are unremarkable, WBC normal. UA with some WBC but LE and nitrite negative. Given her symptoms of dysuria and increased urinary frequency, will plan to start antibiotic treatment. Doubt pyelonephritis with no leukocytosis and no fevers. She is encouraged to follow-up with her primary care doctor. She is stable for discharge home, her [facility] [employer] [employer] will come pick her up. Medical Decision Making Lab Data Result diagrams: 05/07/21 10:01 05/07/21 10:01 Labs: Lab Results 05/07/21 05/07/21 05/07/21 Range/Units 10:01 10:01 10:01 WBC 9.4 (4.8-10.8) X10*3/uL RBC 4.21 (4.20-5.50) X10*6/uL Hgb 13.4 (12.0-16.0) g/dl Hct 40.2 (37-47) % MCV 95.5 (80-98) fL MCH 31.8 (27.0-33.0) pg MCHC 33.3 (31.0-35.0) g/dl RDW 12.4 (11.0-16.0) % Plt Count 198 (160-400) X10*3/uL MPV 9.8 (9.4-12.3) fL Immature Gran % (Auto) 0.2 (0.0-0.4) % Neut % (Auto) 51.7 (45-73) % Lymph % (Auto) 36.1 (20-40) % [place] % (Auto) 8.8 (2-11) % Eos % (Auto) 2.8 (0-4) % Baso % (Auto) 0.4 (0-2) % Lymph # (Auto) 3.4 (1.2-4.9) X10*3/uL [place] # (Auto) 0.8 (0.1-1.2) X10*3/uL Eos # (Auto) 0.3 (0.0-0.4) X10*3/uL Baso # (Auto) 0.0 (0.0-0.2) X10*3/uL Abs Immat Gran (auto) 0.02 (0.00-0.03) X10*3/uL Absolute Neuts (auto) 4.8 (2.0-8.3) X10*3/uL Absolute Nucleated RBC 0.000 (0.0-0.012) X10*3/uL Nucleated RBC % (auto) 0.0 (0.0-0.2) /100WBC Sodium 139 (135-145) mmol/L Potassium 4.0 (3.3-5.1) mmol/L Chloride 102 (96-108) mmol/L Carbon Dioxide 26 (22-29) mmol/L Anion Gap 15 (12-20) BUN 18 H (9-16) mg/dL Creatinine 1.01 (0.5-1.4) mg/dL Estim Creat Clear Calc 49.9 Estimated GFR 54 Random Glucose 171 H (60-115) mg/dL Calcium 10.1 (8.4-10.2) mg/dL Magnesium 1.8 (1.6-2.6) mg/dL Total Bilirubin 0.5 (0.0-1.0) mg/dL Direct Bilirubin 0.2 (0.0-0.5) mg/dL AST 16 (5-31) U/L ALT 13 (0-31) U/L Alkaline Phosphatase 57 (39-117) U/L Total Protein 7.6 (6.5-8.0) g/dL Albumin 4.4 (3.5-5.0) g/dL Urine Color YELLOW Urine Appearance CLEAR Urine pH 6.5 (5.0-8.0) Ur Specific [place] <= 1.005 (1.005-1.025) Urine Protein NEG (NEG-TRACE) MG/DL Urine Glucose (UA) >=1000 H (NEG) MG/DL Urine Ketones NEG (NEG) MG/DL Urine Blood TRACE (NEG) Urine Nitrite NEG (NEG) Ur Leukocyte Esterase NEG (NEG) Urine RBC 0-2 (0) /HPF Urine WBC 1-4 (0-4) /HPF Ur Squamous Epith Cells NONE /LPF Urine Bacteria NONE /LPF Discharge Plan Discharge Clinical Impression: Acute UTI Patient Disposition: Home, Self-Care Instructions: Urinary Tract Infection in Older Adults (ED) Additional Instructions: Your lab workup today was unremarkable. Your urine test showed a possible early urinary tract infection. Take the prescribed antibiotics as directed, complete the entire course. Increase her fluid intake. Follow-up with your doctor early next week. If you develop new or worsening symptoms call 911 or come back to the ER for further evaluation. Prescriptions: New levofloxacin 250 mg tablet 250 mg PO Q24H Qty: 14 RF: 0 No Action (DME) pen needle, diabetic [BD Cori 2nd Gen Pen Needle] 32 gauge x 5/32 needle See Rx Instructions .MEDSUPPLY Qty: 100 RF: 4 Tresiba FlexTouch U-100 100 unit/mL (3 mL) insulin pen 30 unit subcut DAILY 30 Days Qty: 9 RF: 2 lisinopril 20 mg tablet 20 mg PO DAILY 90 Days Qty: 90 RF: 3 atorvastatin 40 mg tablet 40 mg PO DAILY Qty: 90 RF: 1 carvedilol 12.5 mg tablet 12.5 mg PO BID 90 Days Qty: 180 RF: 2 sulfasalazine 500 mg tablet 500 mg PO DAILY Qty: 28 RF: 4 Corlanor 5 mg tablet 5 mg PO DAILY 30 Days Qty: 30 RF: 5 calcium carbonate-vitamin D3 [Oyster Shell Calcium-Vit D3] 500 mg(1,250mg) - 200 unit tablet 1 tab PO BID Qty: 56 RF: 3 folic acid 1 mg tablet 1 mg PO DAILY Qty: 28 RF: 3 oxybutynin chloride 5 mg tablet 5 mg PO BID Qty: 56 RF: 3 dicyclomine 20 mg tablet 20 mg PO QID PRN (Reason: for cramps) Qty: 112 RF: 0 famotidine 20 mg tablet 40 mg PO DAILY Qty: 56 RF: 3 ezetimibe 10 mg tablet 10 mg PO DAILY Qty: 28 RF: 3 Trulicity 3 mg/0.5 mL pen injector 3 mg subcut QWEEK 90 Days Qty: 6.5 RF: 1 sulfamethoxazole-trimethoprim [Bactrim DS] 800-160 mg tablet 1 tab PO BID Qty: 14 RF: 0 sennosides 8.6 mg tablet 17.2 mg PO DAILY RF: 0 albuterol sulfate 2.5 mg /3 mL (0.083 %) solution for nebulization 2.5 mg continuous nebulization Q6H PRN (Reason: bronchospasm) RF: 0 docusate sodium 100 mg capsule 100 mg PO BID PRN (Reason: constipation) 30 Days Qty: 60 RF: 3 acetaminophen 500 mg tablet 500 mg PO Q8H PRN (Reason: fever) 30 Days Qty: 90 RF: 3 tizanidine 4 mg tablet 4 mg PO BEDTIME PRN (Reason: muscle spasticity) 15 Days Qty: 15 RF: 0 secukinumab 150 mg/mL pen injector 150 mg subcut Q4W RF: 0 escitalopram oxalate 10 mg tablet 10 mg PO DAILY RF: 0 furosemide 40 mg tablet 40 mg PO DAILY RF: 0 memantine 10 mg tablet 10 mg PO BID RF: 0 lorazepam 0.5 mg tablet 0.5 mg PO DAILY PRNRF: 0 (DME) blood-glucose meter [FreeStyle [place] Lite] Kit See Rx Instructions .Route RF: 0 (DME) FreeStyle Lite Strips Strip See Rx Instructions .Route RF: 0 Jardiance 10 mg tablet 10 mg PO QAM Qty: 90 RF: 1 trazodone 50 mg tablet 100 mg PO BEDTIME 30 Days Qty: 60 RF: 11 albuterol sulfate [ProAir HFA] 90 mcg/actuation HFA aerosol inhaler 2 puff inhalation Q6H PRN (Reason: Shortness Of Breath) 30 Days Qty: 8.5 RF: 11
[2021-05-07 10:06] LABS: MANUAL DIFF FLAG NO
[2021-05-07 10:07] LABS: Appearance Urine CLEAR; Color Urine YELLOW; Glucose Urine UA >=1000 MG/DL (NEG); Leukocyte Esterase Urine NEG (NEG); Nitrite Urine NEG (NEG); PH 6.5 (5.0-8.0); Specific Gravity - Urine <= 1.005 (1.005-1.025); UACC Culture Trigger NO; Urine Blood TRACE (NEG); Urine Ketones NEG (NEG); Urine Protein NEG (NEG-TRACE)
[2021-05-07 10:10] LABS: Basophils Percent Auto 0.4 % (0-2); Eosinophils Absolute Auto 0.3 X10*3/uL (0.0-0.4); Eosinophils Percent Auto 2.8 % (0-4); Hematocrit 40.2 % (37-47); Hemoglobin 13.4 g/dl (12.0-16.0); Imm Gran Abs Auto 0.02 X10*3/uL (0.00-0.03); Imm Gran Pct Auto 0.2 % (0.0-0.4); Lymphocytes Absolute Auto 3.4 X10*3/uL (1.2-4.9); Lymphocytes Percent Auto 36.1 % (20-40); Mean Corpuscular HGB Conc 33.3 g/dl (31.0-35.0); Mean Corpuscular Hemoglobin 31.8 pg (27.0-33.0); Mean Corpuscular Volume 95.5 fL (80-98); Mean Platelet Volume 9.8 fL (9.4-12.3); Monocytes Absolute Auto 0.8 X10*3/uL (0.1-1.2); Monocytes Percent Auto 8.8 % (2-11); Neutrophils Absolute Auto 4.8 X10*3/uL (2.0-8.3); Neutrophils Percent Auto 51.7 % (45-73); Platelet Count 198 X10*3/uL (160-400); Red Blood Count 4.21 X10*6/uL (4.20-5.50); Red Cell Distribution Width 12.4 % (11.0-16.0); White Blood Count 9.4 X10*3/uL (4.8-10.8)
[2021-05-07 10:16] LABS: RBC Urine 0-2 /HPF (0)
[2021-05-07 10:23] LABS: Alanine Aminotransferase 13 U/L (0-31); Albumin Level 4.4 g/dL (3.5-5.0); Alkaline Phosphatase 57 U/L (39-117); Anion Gap 15 (12-20); Aspartate Amino Transferase 16 U/L (5-31); Bilirubin Direct 0.2 mg/dL (0.0-0.5); Bilirubin Total 0.5 mg/dL (0.0-1.0); Blood Urea Nitrogen 18 mg/dL (9-16); Calcium 10.1 mg/dL (8.4-10.2); Carbon Dioxide 26 mmol/L (22-29); Chloride 102 mmol/L (96-108); Creatinine Clr Calc Pharmacy 49.9; Estimated Glomerular Filt Rate 54; Glucose Random 171 mg/dL (60-115); Magnesium 1.8 mg/dL (1.6-2.6); Sodium 139 mmol/L (135-145); Total Protein 7.6 g/dL (6.5-8.0)
[2021-05-07 10:26] VITALS: BP 112/86; PULSE 79; RESP 18; TEMP 36.6; O2SAT 93
[2021-05-07] MEDS: Acetaminophen 325 MG TABLET 650 MG PO (10:45)
--- NOTE | 2021-05-07 10:45 | PC.NURSE ---
no change in assessment. ls coarse wheeze. unlabored resp. skin pwd. right upper back pain remains. awaiting results.
[2021-05-08 12:22] LABS: C Reactive Protein 0.08 mg/dL (< or = 0.50)
== END 2021-05-07 11:22 | disposition home or self-care (01) ==
PROVIDERS: Physician Assistant; Emergency Provider Emergency Medicine Emergency Medical Services; PCP Internal Medicine
DX: N39.0 Urinary tract infection, site not specified (principal); M54.50 Low back pain, unspecified; E11.9 Type 2 diabetes mellitus without complications; G47.33 Obstructive sleep apnea (adult) (pediatric); R10.9 Unspecified abdominal pain; Z79.899 Other long term (current) drug therapy
CPT/HCPCS: 36415; 80048; 80076; 81001; 83735; 85025; 86140; 99283; 99284

== ENCOUNTER → 2021-05-08 10:38 | Outpatient (BNVA) | payer MEDICARE, SELFPAY | PROVIDERS: PCP Internal Medicine; Visit Provider Nurse Practitioner Family | DX: L40.50 Arthropathic psoriasis, unspecified (principal); M79.671 Pain in right foot; I44.7 Left bundle-branch block, unspecified; E11.22 Type 2 diabetes mellitus with diabetic chronic kidney disease; E11.65 Type 2 diabetes mellitus with hyperglycemia; I12.9 Hypertensive chronic kidney disease with stage 1 through stage 4 chronic kidney disease, or unspecified chronic kidney disease; N18.30 Chronic kidney disease, stage 3 unspecified; N17.9 Acute kidney failure, unspecified; Z96.653 Presence of artificial knee joint, bilateral; Z88.6 Allergy status to analgesic agent; Z88.0 Allergy status to penicillin; Z88.8 Allergy status to other drugs, medicaments and biological substances; Z79.4 Long term (current) use of insulin; Z79.899 Other long term (current) drug therapy | CPT/HCPCS: 99212 ==

== ENCOUNTER 2021-05-22 09:24 | Outpatient (REF) | payer MEDICARE, SELFPAY ==
[2021-05-22 09:40] LABS: MANUAL DIFF FLAG NO
[2021-05-22 10:07] LABS: Basophils Percent Auto 0.5 % (0-2); Eosinophils Absolute Auto 0.4 X10*3/uL (0.0-0.4); Eosinophils Percent Auto 4.3 % (0-4); Imm Gran Abs Auto 0.02 X10*3/uL (0.00-0.03); Imm Gran Pct Auto 0.2 % (0.0-0.4); Lymphocytes Absolute Auto 3.7 X10*3/uL (1.2-4.9); Lymphocytes Percent Auto 44.5 % (20-40); Mean Corpuscular HGB Conc 33.3 g/dl (31.0-35.0); Mean Corpuscular Hemoglobin 32.1 pg (27.0-33.0); Mean Corpuscular Volume 96.3 fL (80.0-98.0); Mean Platelet Volume 10.2 fL (9.4-12.3); Monocytes Absolute Auto 0.8 X10*3/uL (0.1-1.2); Monocytes Percent Auto 9.5 % (2-11); Neutrophils Absolute Auto 3.4 x10*3/uL (2.0-8.3); Platelet Count 184 X10*3/uL (160-400); Red Blood Count 4.36 X10*6/uL (4.20-5.50); Red Cell Distribution Width 12.3 % (11.0-16.0); White Blood Count 8.2 X10*3/uL (4.8-10.8)
[2021-05-22 10:10] LABS: Appearance Urine CLEAR; Color Urine YELLOW; Glucose Urine UA >=1000 MG/DL (NEG); Leukocyte Esterase Urine NEG (NEG); Nitrite Urine NEG (NEG); Urine Blood NEG (NEG); Urine Ketones NEG (NEG); Urine Protein TRACE MG/DL (NEG-TRACE)
[2021-05-22 10:30] LABS: Alanine Aminotransferase 19 U/L (0-31); Albumin Level 4.7 g/dL (3.5-5.0); Alkaline Phosphatase 55 U/L (39-117); Anion Gap 13 (12-20); Aspartate Amino Transferase 18 U/L (5-31); Bilirubin Total 0.5 mg/dL (0.0-1.0); Blood Urea Nitrogen 25 mg/dL (9-16); C Reactive Protein 0.11 mg/dL (< or = 0.50); Calcium 10.4 mg/dL (8.4-10.2); Carbon Dioxide 30 mmol/L (22-29); Chloride 102 mmol/L (96-108); Estimated Glomerular Filt Rate 49; Glucose Fasting 181 mg/dL (60-99); Potassium 4.9 mmol/L (3.3-5.1); Sodium 140 mmol/L (135-145); Total Protein 7.9 g/dL (6.5-8.0)
[2021-05-22 10:38] LABS: Creatinine Urine 113.56 mg/dL; Microalbum/Creatinine Ratio Ur 108.3 ug/mg cr
[2021-05-22 10:46] LABS: Erythrocyte Sedimentation Rate 16 MM/HR (0-20)
[2021-05-22 10:52] LABS: Vitamin D 25-OH Total 37.8 ng/mL (>30)
[2021-05-22 10:54] LABS: HBc Num1 0.05 S/CO (0.00-0.79); Hepatitis B Core Antibody Nonreactive (Nonreactive); ~HepC Num1 0.07 S/CO (0.00-0.79); ~Hepatitis B Surface Antibody NONREACTIVE (Nonreactive); ~Hepatitis C Antibody Nonreactive (Nonreactive)
[2021-05-22 10:56] LABS: HBsAGNum1 0.17 S/CO (0.00-0.99); Hepatitis B Surface Antigen Negative (Negative); ~Hepatitis A Antibody IgM Nonreactive (Nonreactive)
[2021-05-22 10:59] LABS: Squamous Epithelial Cell Urine 1+ /LPF
[2021-05-22 11:00] LABS: Renal Epithelial Cells Urine 1+ /LPF
[2021-05-25 11:37] LABS: TS Negative Control Passed; TS Panel A 1; TS Panel B 0; TS Positive Control Passed; TSpotTB Negative (SeeBelow)
== END 2021-05-22 09:25 | disposition home or self-care (01) ==
LOC: HO.LAB 09:24
PROVIDERS: PCP Internal Medicine; Visit Provider Nurse Practitioner Family
DX: L40.50 Arthropathic psoriasis, unspecified (principal); I10 Essential (primary) hypertension; E78.00 Pure hypercholesterolemia, unspecified; E11.9 Type 2 diabetes mellitus without complications; E55.9 Vitamin D deficiency, unspecified
CPT/HCPCS: 36415; 80053; 81001; 82043; 82306; 84443; 85025; 85652; 86140; 86481; 86704; 86706; 86709; 86803; 87340

== ENCOUNTER 2021-06-15 08:51 | Outpatient (REF) | payer MEDICARE, SELFPAY ==
[2021-06-15 10:16] LABS: MANUAL DIFF FLAG NO
[2021-06-15 10:36] LABS: Basophils Percent Auto 0.4 % (0-2); Eosinophils Absolute Auto 0.2 X10*3/uL (0.0-0.4); Eosinophils Percent Auto 2.7 % (0-4); Hematocrit 42.4 % (37.0-47.0); Hemoglobin 13.8 g/dl (12.0-16.0); Imm Gran Abs Auto 0.02 X10*3/uL (0.00-0.03); Imm Gran Pct Auto 0.2 % (0.0-0.4); Lymphocytes Absolute Auto 2.9 X10*3/uL (1.2-4.9); Lymphocytes Percent Auto 35.3 % (20-40); Mean Corpuscular HGB Conc 32.5 g/dl (31.0-35.0); Mean Corpuscular Hemoglobin 31.7 pg (27.0-33.0); Mean Corpuscular Volume 97.2 fL (80.0-98.0); Monocytes Absolute Auto 0.6 X10*3/uL (0.1-1.2); Monocytes Percent Auto 7.9 % (2-11); Neutrophils Absolute Auto 4.3 x10*3/uL (2.0-8.3); Neutrophils Percent Auto 53.5 % (45-73); Platelet Count 221 X10*3/uL (160-400); Red Blood Count 4.36 X10*6/uL (4.20-5.50); Red Cell Distribution Width 12.2 % (11.0-16.0); White Blood Count 8.1 X10*3/uL (4.8-10.8)
[2021-06-15 11:15] LABS: Alanine Aminotransferase 15 U/L (0-31); Albumin Level 4.5 g/dL (3.5-5.0); Alkaline Phosphatase 54 U/L (39-117); Anion Gap 15 (12-20); Aspartate Amino Transferase 17 U/L (5-31); Bilirubin Total 0.5 mg/dL (0.0-1.0); Blood Urea Nitrogen 19 mg/dL (9-16); C Reactive Protein 0.09 mg/dL (< or = 0.50); Calcium 10.6 mg/dL (8.4-10.2); Carbon Dioxide 30 mmol/L (22-29); Chloride 99 mmol/L (96-108); Estimated Glomerular Filt Rate 50; Glucose Random 198 mg/dL (60-115); Potassium 4.6 mmol/L (3.3-5.1); Sodium 139 mmol/L (135-145); Total Protein 7.9 g/dL (6.5-8.0)
[2021-06-15 11:21] LABS: Erythrocyte Sedimentation Rate 34 MM/HR (0-20)
[2021-06-16 14:51] LABS: PTHI 36 pg/mL (14-64)
== END 2021-06-15 08:52 | disposition home or self-care (01) ==
LOC: HO.LAB 08:51
PROVIDERS: PCP Internal Medicine; Visit Provider Nurse Practitioner Family
DX: L40.50 Arthropathic psoriasis, unspecified (principal); E83.52 Hypercalcemia
CPT/HCPCS: 36415; 80053; 83970; 85025; 85652; 86140; 99212

== ENCOUNTER → 2021-06-25 09:56 | Outpatient (BNVA) | payer MEDICARE, SELFPAY | PROVIDERS: PCP Internal Medicine; Visit Provider Hospitalist | DX: F51.01 Primary insomnia (principal); G47.33 Obstructive sleep apnea (adult) (pediatric); J45.20 Mild intermittent asthma, uncomplicated | CPT/HCPCS: 99212 ==

== ENCOUNTER 2021-07-20 10:03 | Outpatient (REF) | payer MEDICARE, SELFPAY ==
[2021-07-20 10:21] LABS: MANUAL DIFF FLAG NO
[2021-07-20 10:28] LABS: Basophils Percent Auto 0.3 % (0-2); Eosinophils Absolute Auto 0.2 X10*3/uL (0.0-0.4); Eosinophils Percent Auto 2.1 % (0-4); Hematocrit 37.8 % (37.0-47.0); Hemoglobin 12.3 g/dl (12.0-16.0); Imm Gran Abs Auto 0.03 X10*3/uL (0.00-0.03); Imm Gran Pct Auto 0.3 % (0.0-0.4); Lymphocytes Absolute Auto 2.6 X10*3/uL (1.2-4.9); Lymphocytes Percent Auto 29.1 % (20-40); Mean Corpuscular HGB Conc 32.5 g/dl (31.0-35.0); Mean Corpuscular Hemoglobin 31.6 pg (27.0-33.0); Mean Corpuscular Volume 97.2 fL (80.0-98.0); Mean Platelet Volume 9.9 fL (9.4-12.3); Monocytes Absolute Auto 0.7 X10*3/uL (0.1-1.2); Monocytes Percent Auto 7.4 % (2-11); Neutrophils Absolute Auto 5.5 x10*3/uL (2.0-8.3); Neutrophils Percent Auto 60.8 % (45-73); Platelet Count 178 X10*3/uL (160-400); Red Blood Count 3.89 X10*6/uL (4.20-5.50); Red Cell Distribution Width 12.2 % (11.0-16.0); White Blood Count 9.1 X10*3/uL (4.8-10.8)
[2021-07-20 10:52] LABS: Alanine Aminotransferase 17 U/L (0-31); Albumin Level 4.2 g/dL (3.5-5.0); Alkaline Phosphatase 55 U/L (39-117); Anion Gap 11 (12-20); Aspartate Amino Transferase 18 U/L (5-31); Bilirubin Total 0.4 mg/dL (0.0-1.0); Blood Urea Nitrogen 15 mg/dL (9-16); Calcium 10.4 mg/dL (8.4-10.2); Carbon Dioxide 29 mmol/L (22-29); Chloride 104 mmol/L (96-108); Cholesterol 135 mg/dL; Estimated Glomerular Filt Rate > 60; Glucose Fasting 125 mg/dL (60-99); HDL Cholesterol 38 mg/dL; LDL Cholesterol Calculated 65 mg/dl; Sodium 140 mmol/L (135-145); Total Protein 7.5 g/dL (6.5-8.0); Triglycerides 164 mg/dL
[2021-07-20 10:59] LABS: Estimated Average Glucose 163 mg/dL; Hemoglobin A1c % 7.3 %
[2021-07-20 11:10] LABS: Appearance Urine CLEAR; Color Urine YELLOW; Glucose Urine UA NEG (NEG); Leukocyte Esterase Urine NEG (NEG); Nitrite Urine NEG (NEG); PH 5.5 (5.0-8.0); Specific Gravity - Urine >= 1.030 (1.005-1.025); UACC Culture Trigger NO; Urine Blood NEG (NEG); Urine Ketones NEG (NEG); Urine Protein 1+ MG/DL (NEG-TRACE)
[2021-07-20 11:15] LABS: TSH reflex Free T4 0.01 uIU/mL (0.32-4.0); Vitamin D 25-OH Total 37.1 ng/mL (>30)
[2021-07-20 11:23] LABS: Creatinine Urine 200.51 mg/dL; Microalbum/Creatinine Ratio Ur 98.2 ug/mg cr
[2021-07-20 11:27] LABS: RBC Urine 0 /HPF (0); Squamous Epithelial Cell Urine TRACE /LPF; WBC Urine 0 /HPF (0-4)
[2021-07-20 11:55] LABS: Free T4 (Free Thyroxine) 1.69 ng/dL (0.71-1.85)
== END 2021-07-20 10:04 | disposition home or self-care (01) ==
LOC: HO.LAB 10:03
PROVIDERS: PCP Internal Medicine; Visit Provider Internal Medicine
DX: I10 Essential (primary) hypertension (principal); E78.00 Pure hypercholesterolemia, unspecified; E11.9 Type 2 diabetes mellitus without complications; E55.9 Vitamin D deficiency, unspecified
CPT/HCPCS: 36415; 80053; 80061; 81001; 82043; 82306; 83036; 84439; 84443; 85025

== ENCOUNTER 2021-07-27 09:54 | Outpatient (REF) | payer MEDICARE, SELFPAY ==
--- NOTE | ~2021-07-27 | XR_ITS ---
EXAMINATION: XR SHOULDER, RIGHT CLINICAL INFORMATION: Shoulder pain. COMPARISON: Right rib radiographs dated 04/23/2021. TECHNIQUE: Three views of the right shoulder. FINDINGS: The patient is status post right glenohumeral arthroplasty showing good anatomic alignment with no evidence for hardware malfunction. There is no acute fracture. Mild right acromioclavicular degenerative joint changes are seen with mild malalignment. The visualized right ribs are intact. The soft tissues are unremarkable. XR/XR shoulder RT min 2V IMPRESSION: 1. No right glenohumeral hardware abnormality. 2. Mild right acromioclavicular degenerative joint changes and mild malalignment without significant widening demonstrate no significant change suggesting chronic changes.
--- NOTE | ~2021-07-27 | XR_ITS ---
EXAMINATION: XR ABDOMEN WITH DECUBITUS VIEWS CLINICAL INDICATION: R10.30 - Lower abdominal pain, unspecified COMPARISON: CT abdomen and pelvis 02/05/2021. TECHNIQUE: Supine x2 and upright x2 views of the abdomen are obtained. There are total of 4 views. FINDINGS: There is scattered gas in the bowel of normal caliber. There is no obstruction, gaseous dilatation of bowel, differential air-fluid levels, or free air. The lung bases are clear. AICD leads again seen overlying the heart. There are no visible urinary tract calculi. There are calcifications or postsurgical densities overlying the bladder outlet again seen. No visible acute bony abnormality. XR/XR abdomen w decubitus IMPRESSION: No obstruction or abnormal collections of gas. Lung bases clear.
== END 2021-07-27 09:55 | disposition home or self-care (01) ==
LOC: HO.LAB 09:54
PROVIDERS: PCP Internal Medicine; Visit Provider Internal Medicine
DX: R10.30 Lower abdominal pain, unspecified (principal); M25.511 Pain in right shoulder; M25.512 Pain in left shoulder
CPT/HCPCS: 73030; 74021

== ENCOUNTER 2021-07-29 10:10 | Outpatient (REF) | payer MEDICARE, SELFPAY ==
--- NOTE | ~2021-07-29 | MM_ITS ---
EXAMINATION: MM SCREENING DIGITAL BREAST TOMOSYNTHESIS, BILATERAL CLINICAL INFORMATION: Screening. Asymptomatic. The lifetime risk of breast cancer based on the Tyrer-Cuzick Model is 3%. COMPARISON: Mammography: 07/17/2020, 02/28/2019, 02/27/2018 TECHNIQUE: Digital breast tomosynthesis is performed in both the craniocaudal and mediolateral oblique views along with computer-aided detection (CAD). Synthesized 2D images are generated from the tomosynthesis. Additional left MLO view is provided. FINDINGS: There are scattered areas of fibroglandular density (ACR BI-RADS breast composition Category b). There are no significant masses, abnormal calcifications, or other abnormalities. The scattered bilateral vascular calcifications are present. There are stable calcifications mid 3:00 left breast with adjacent biopsy clip marker. Pacemaker generator overlies and partly obscures left axilla on MLO view. No significant changes. MM/MM tomosynthesis screening BI IMPRESSION: No mammographic evidence of malignancy. ASSESSMENT: BI-RADS 2: Benign RECOMMENDATION: Routine annual mammography screening. This patient's information was entered into a reminder system with a target due date for their next mammogram.
== END 2021-07-29 10:11 | disposition home or self-care (01) ==
LOC: HO.MAMMO 10:10
PROVIDERS: PCP Internal Medicine; Visit Provider Internal Medicine
DX: Z12.31 Encounter for screening mammogram for malignant neoplasm of breast (principal)
CPT/HCPCS: 77063; 77067

== ENCOUNTER → 2021-08-24 10:21 | Outpatient (BNVA) | payer MEDICARE, SELFPAY | PROVIDERS: PCP Internal Medicine; Visit Provider Internal Medicine | DX: E21.3 Hyperparathyroidism, unspecified (principal); E04.2 Nontoxic multinodular goiter; E55.9 Vitamin D deficiency, unspecified | CPT/HCPCS: 99212 ==

== ENCOUNTER 2021-08-26 13:25 | Outpatient (REF) | payer MEDICARE, SELFPAY ==
[2021-08-26 14:53] LABS: Creatinine, mg/dL 32.25
[2021-08-26 18:05] LABS: Creatinine, 24Hr Urine 0.5 G/Day (1.0-2.0); Total Volume 24 Hour Urine 1700 mL
[2021-08-28 20:57] LABS: Calcium, 24 Hr Urine 36 mg/24 h; Calcium/Creatinine Ratio 60 mg/g creat (30-275)
== END 2021-08-26 13:26 | disposition home or self-care (01) ==
LOC: HO.LNP 13:25
PROVIDERS: Visit Provider Internal Medicine
DX: E21.3 Hyperparathyroidism, unspecified (principal)
CPT/HCPCS: 82340; 82570

== ENCOUNTER → 2021-09-01 10:02 | Outpatient (BNVA) | payer MEDICARE, SELFPAY | PROVIDERS: PCP Internal Medicine; Visit Provider Registered Nurse Diabetes Educator | DX: Z13.89 Encounter for screening for other disorder (principal) ==

== ENCOUNTER 2021-09-01 10:33 | Outpatient (REF) | payer MEDICARE, SELFPAY ==
[2021-09-01 13:49] LABS: MANUAL DIFF FLAG NO
[2021-09-01 13:54] LABS: Basophils Percent Auto 0.3 % (0-2); Eosinophils Absolute Auto 0.3 X10*3/uL (0.0-0.4); Eosinophils Percent Auto 2.8 % (0-4); Imm Gran Abs Auto 0.02 X10*3/uL (0.00-0.03); Imm Gran Pct Auto 0.2 % (0.0-0.4); Lymphocytes Absolute Auto 2.9 X10*3/uL (1.2-4.9); Lymphocytes Percent Auto 31.7 % (20-40); Mean Corpuscular HGB Conc 32.5 g/dl (31.0-35.0); Mean Corpuscular Hemoglobin 31.3 pg (27.0-33.0); Mean Corpuscular Volume 96.4 fL (80.0-98.0); Mean Platelet Volume 10.8 fL (9.4-12.3); Monocytes Absolute Auto 0.6 X10*3/uL (0.1-1.2); Monocytes Percent Auto 7.1 % (2-11); Neutrophils Absolute Auto 5.2 x10*3/uL (2.0-8.3); Neutrophils Percent Auto 57.9 % (45-73); Platelet Count 209 X10*3/uL (160-400); Red Blood Count 4.15 X10*6/uL (4.20-5.50); Red Cell Distribution Width 12.6 % (11.0-16.0)
[2021-09-01 14:12] LABS: Alanine Aminotransferase 15 U/L (0-31); Albumin Level 4.3 g/dL (3.5-5.0); Alkaline Phosphatase 58 U/L (39-117); Anion Gap 10 (12-20); Aspartate Amino Transferase 17 U/L (5-31); Bilirubin Total 0.6 mg/dL (0.0-1.0); Blood Urea Nitrogen 13 mg/dL (9-16); C Reactive Protein 0.12 mg/dL (< or = 0.50); Calcium 10.5 mg/dL (8.4-10.2); Carbon Dioxide 31 mmol/L (22-29); Chloride 103 mmol/L (96-108); Estimated Glomerular Filt Rate > 60; Glucose Random 140 mg/dL (60-115); Phosphorus 4.1 mg/dL (2.7-4.5); Potassium 4.4 mmol/L (3.3-5.1); Sodium 140 mmol/L (135-145); Total Protein 7.6 g/dL (6.5-8.0)
[2021-09-01 14:29] LABS: Free T4 (Free Thyroxine) 0.93 ng/dL (0.71-1.85); Thyroid Stimulating Hormone 0.73 uIU/mL (0.32-4.0); Vitamin D 25-OH Total 31.3 ng/mL (>30)
[2021-09-02 14:17] LABS: Calcium (PTHI) 10.3 mg/dL (8.6-10.4); PTHI 37 pg/mL (14-64)
== END 2021-09-01 10:34 | disposition home or self-care (01) ==
LOC: HO.10HDL 10:33
PROVIDERS: Absent Provider Nurse Practitioner Family; Visit Provider Internal Medicine
DX: E21.3 Hyperparathyroidism, unspecified (principal); E04.2 Nontoxic multinodular goiter; E55.9 Vitamin D deficiency, unspecified; L40.50 Arthropathic psoriasis, unspecified
CPT/HCPCS: 36415; 80053; 82306; 83970; 84100; 84439; 84443; 85025; 86140

== ENCOUNTER → 2021-09-14 08:53 | Outpatient (BNVA) | payer MEDICARE, SELFPAY | PROVIDERS: PCP Internal Medicine; Visit Provider Nurse Practitioner Family | DX: L40.50 Arthropathic psoriasis, unspecified (principal); M54.50 Low back pain, unspecified; E83.52 Hypercalcemia | CPT/HCPCS: 99212 ==

== ENCOUNTER 2021-09-15 10:50 | Outpatient (REF) | payer MEDICARE, SELFPAY ==
--- NOTE | ~2021-09-15 | MM_ITS ---
EXAMINATION: BONE DENSITOMETRY CLINICAL INDICATION: Hyperparathyroidism, unspecified. COMPARISON: Previous BD dated 03/09/2011 and baseline BD dated 02/21/2007, spine and left hip. This is the patient's baseline examination for the forearm radius 33%. TECHNIQUE: Using a Dynamics DXA System (software version: 13.1) manufactured by [employer], dual-energy x-ray absorptiometry was performed of the lumbar spine, left hip, and left forearm radius 33%. The images are of good technical quality. Summary results are attached. FINDINGS: AP SPINE L1-L4: Current: BMD 1.182 g/cm2, Z-score 1.2, T-score 0.0, normal, 3.1% increase from previous, 2.4% increase from baseline (<5% change is not significant). Prior: BMD 1.147 g/cm2. Baseline: BMD 1.154 g/cm2. LEFT FEMUR, NECK: Current: BMD 0.773 g/cm2, Z-score -0.4, T-score -1.9, osteopenia. Prior: BMD 0.845 g/cm2. Baseline: BMD 0.900 g/cm2. LEFT FEMUR, TOTAL: Current: BMD 0.894 g/cm2, Z-score 0.4, T-score -0.9, normal, 8.4% decrease from previous, 15.5% decrease from baseline (<5% change is not significant). Prior: BMD 0.976 g/cm2. Baseline: BMD 1.058 g/cm2. LEFT FOREARM RADIUS 33%: BMD 0.910 g/cm2, Z-score 2.5, T-score 0.4, normal. IDENTIFIED RISK FACTORS: Hyperparathyroidism, dementia, secondary osteoporosis, rheumatoid arthritis, menopause, hysterectomy, bilateral oophorectomy. HISTORY OF FRACTURE: None listed. MEDICATIONS: None listed. MM/XR DEXA appendicular skeleton IMPRESSION: 1. DIAGNOSIS: Osteopenia based on the lowest T-score value of -1.9 in the femoral neck applying World Health Organization criteria. 2. 10-YEAR FRACTURE RISK PREDICTION, FRAX: Major osteoporotic fracture (clinical spine, forearm, hip or shoulder) 8.7%. Hip fracture 2.1%. 3. Treatment Recommendations: NOF guidelines recommend consideration for treatment in postmenopausal women and men age 50 and older presenting with the following: -A hip or vertebral (clinical or morphometric) fracture. -T-score less than or equal to -2.5 at the femoral neck or spine after appropriate evaluation to exclude secondary causes. -Low bone mass at the hip or spine and a 10-year fracture probability by FRAX of greater than or equal to 3% for hip fracture or greater than or equal to 20% for major osteoporotic fracture based on the [place] adapted WHO algorithm. 4. Other Recommendations: All treatment decisions require clinical judgment and consideration of individual patient factors, including patient preferences, comorbidities, previous drug use, risk factors not captured in the FRAX model (e.g. frailty, falls, vitamin D deficiency, increased bone turnover, interval significant decline in bone density) and possible under or overestimation of fracture risk by FRAX. Additional medical evaluation for secondary cause of low bone mineral density may be appropriate. FUTURE SCAN RECOMMENDATION: People with diagnosed cases of osteoporosis or at high risk for fracture should have regular bone mineral density tests. For patients eligible for Medicare, routine testing is allowed once every 2 years. The testing frequency can be increased to one year for patients who have rapidly progressing disease, those who are receiving or discontinuing medical therapy to restore bone mass, or have additional risk factors.
== END 2021-09-15 10:51 | disposition home or self-care (01) ==
LOC: HO.MAMMO 10:50
PROVIDERS: Visit Provider Internal Medicine
DX: Z13.820 Encounter for screening for osteoporosis (principal); E21.3 Hyperparathyroidism, unspecified; M85.80 Other specified disorders of bone density and structure, unspecified site; Z78.0 Asymptomatic menopausal state; E11.21 Type 2 diabetes mellitus with diabetic nephropathy; E11.22 Type 2 diabetes mellitus with diabetic chronic kidney disease; I12.9 Hypertensive chronic kidney disease with stage 1 through stage 4 chronic kidney disease, or unspecified chronic kidney disease; N18.31 Chronic kidney disease, stage 3a; E66.9 Obesity, unspecified; E78.5 Hyperlipidemia, unspecified; Z79.4 Long term (current) use of insulin
CPT/HCPCS: 77081; 82947; 99212

== ENCOUNTER 2021-09-18 15:44 | Outpatient (REF) | payer MEDICARE, SELFPAY ==
--- NOTE | ~2021-09-18 | US_ITS ---
EXAMINATION: US THYROID CLINICAL INFORMATION: Nontoxic multinodular goiter. COMPARISON: Ultrasound soft tissue head/neck thyroid dated 10/27/2020 and 05/01/2020. CT neck 12/28/2014. TECHNIQUE: Linear transducer grayscale and color Doppler examination with attention to the region of the thyroid. FINDINGS: SIZE: Measurements of the thyroid lobes and nodules are given in sagittal, anteroposterior and transverse dimensions respectively. Right Thyroid Lobe: 4.1 x 1.5 x 1.4 cm, volume 3.8 mL. Previously 5.0 x 1.6 x 1.3 cm, volume 5.1 mL. Parenchyma: The gland echotexture is homogeneous. Thyroid vascularity is normal. Left Thyroid Lobe: 3.8 x 1.7 x 1.5 cm, volume 5.0 mL. Previously 4.5 x 1.2 x 1.3 cm, volume 3.7 mL. Parenchyma: The gland echotexture is homogeneous. Thyroid vascularity is normal. Isthmus: 0.5 cm in maximum AP dimension. Previously 0.5 cm. Estimated total number of nodules greater than or equal to 1 cm: 0. 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 Location: Right inferior. Size: 0.9 x 0.8 x 0.7 cm, volume 0.3 mL. Previously: 1.2 x 0.7 x 0.9 cm, volume 0.4 mL. Nodule characteristics: Composition: Solid (2) Echogenicity: Anechoic (0). Shape: Not taller than wide (0). Margins: Irregular (2). Echogenic Foci: None (0). ACR TI-RADS total points: 4 Previous: 0 ACR TI-RADS category: 4 Previous: 1 Significant change in size (>/= 20% in 2 dimensions and minimal increase of 2 mm or 50% or greater increase in volume): Measurement differences may be due to technical factors/interobserver variation of nodule borders. Change in features: No Change in ACR TI-RADS risk category: No 2. Location: Right inferior. Size: 0.3 x 0.3 x 0.3 cm, volume 0.01 mL. Previously: Not seen on the previous study. Nodule characteristics: Composition: Solid (2). Echogenicity: Isoechoic (1). Shape: Not taller than wide (0). Margins: Smooth (0). Echogenic Foci: None (0). ACR TI-RADS total points: 3 ACR TI-RADS category: 3 3. Location: Left mid. Size: 0.8 x 0.7 x 0.8 cm, volume 0.3 mL. Previously: 1.1 x 0.5 x 0.9 cm, volume 0.3 mL. Nodule characteristics: Composition: Solid (2). Echogenicity: Isoechoic (1). Shape: Not taller than wide (0). Margins: Ill-defined (0). Echogenic Foci: Punctate echogenic foci (3). ACR TI-RADS total points: 6 Previous: 0 ACR TI-RADS category: 4 Previous: 1 Significant change in size (>/= 20% in 2 dimensions and minimal increase of 2 mm or 50% or greater increase in volume): Change in features: Newly appreciated calcification Change in ACR TI-RADS risk category: Yes NODES: No lymphadenopathy is seen in the tissue surrounding the thyroid gland. US/US thyroid IMPRESSION: Difference in size in the largest nodules may be due to technical factors/interobserver variation of nodule borders. There is a new punctate calcification seen in the nodule in the mid left lobe. This meets TI-RADS ultrasound criteria for fine-needle aspiration. Small newly appreciated nodule in the lower pole of the right lobe. ACR TI-RADS RECOMMENDATION REFERENCE: Ultrasound-guided fine-needle aspiration, followup ultrasound, no further follow up. * TR1 (0 point) and TR 2 (2 points): No FNA or follow up * TR3 (3 points): FNA if more than or equal to 2.5 cm in maximum dimension, followup ultrasound in 1, 3 and 5 years if 1.5 to 2.4 cm in maximum dimension. * TR4 (4-6 points): FNA if more than or equal to 1.5 cm in maximum dimension, followup ultrasound in 1, 2, 3 and 5 years if 1 to 1.4 cm in maximum dimension. * TR5 (more than or equal to 7 points): FNA if more than or equal to 1 cm in maximum dimension, followup ultrasound every year for 5 years if 0.5 to 0.9 cm in maximum dimension. * TR3, TR4 or TR5 nodules that are below the size threshold for follow up receive no follow up.
== END 2021-09-18 15:45 | disposition home or self-care (01) ==
LOC: HO.US 15:44
PROVIDERS: Visit Provider Internal Medicine
DX: E04.2 Nontoxic multinodular goiter (principal)
CPT/HCPCS: 76536

== ENCOUNTER → 2021-09-24 09:43 | Outpatient (BNVA) | payer MEDICARE, SELFPAY | PROVIDERS: PCP Internal Medicine; Visit Provider Hospitalist | DX: Z13.89 Encounter for screening for other disorder (principal) ==

== ENCOUNTER → 2021-09-29 15:43 | Outpatient (BNVA) | payer MEDICARE, SELFPAY | PROVIDERS: PCP Internal Medicine; Visit Provider Hospitalist | DX: G47.33 Obstructive sleep apnea (adult) (pediatric) (principal); J45.20 Mild intermittent asthma, uncomplicated; F51.01 Primary insomnia | CPT/HCPCS: 99212 ==

== ENCOUNTER → 2021-11-18 10:16 | Outpatient (BNVA) | payer MEDICARE, SELFPAY | PROVIDERS: PCP Internal Medicine; Visit Provider Internal Medicine | DX: E21.3 Hyperparathyroidism, unspecified (principal); E04.2 Nontoxic multinodular goiter; E55.9 Vitamin D deficiency, unspecified | CPT/HCPCS: Q3014 ==

== ENCOUNTER → 2021-12-04 11:00 | Outpatient (BNVA) | payer MEDICARE, SELFPAY | PROVIDERS: PCP Internal Medicine; Visit Provider Nurse Practitioner Family | DX: Z13.89 Encounter for screening for other disorder (principal) ==

== ENCOUNTER → 2021-12-16 10:37 | Outpatient (BNVA) | payer MEDICARE, SELFPAY | PROVIDERS: PCP Internal Medicine; Referring Provider Internal Medicine; Visit Provider Internal Medicine | DX: I42.8 Other cardiomyopathies (principal); I44.7 Left bundle-branch block, unspecified; E11.8 Type 2 diabetes mellitus with unspecified complications; R00.0 Tachycardia, unspecified | CPT/HCPCS: 93005; 99212 ==

== ENCOUNTER 2021-12-24 13:20 | Outpatient (REF) | payer OTHER, SELFPAY ==
[2021-12-24 13:36] LABS: MANUAL DIFF FLAG NO
[2021-12-24 14:28] LABS: Basophils Percent Auto 0.2 % (0-2); Eosinophils Absolute Auto 0.2 X10*3/uL (0.0-0.4); Eosinophils Percent Auto 2.6 % (0-4); Imm Gran Abs Auto 0.02 X10*3/uL (0.00-0.03); Imm Gran Pct Auto 0.2 % (0.0-0.4); Lymphocytes Absolute Auto 3.8 X10*3/uL (1.2-4.9); Lymphocytes Percent Auto 42.8 % (20-40); Mean Corpuscular HGB Conc 32.5 g/dl (31.0-35.0); Mean Corpuscular Hemoglobin 31.2 pg (27.0-33.0); Mean Corpuscular Volume 95.9 fL (80.0-98.0); Mean Platelet Volume 10.1 fL (9.4-12.3); Monocytes Absolute Auto 0.6 X10*3/uL (0.1-1.2); Neutrophils Absolute Auto 4.2 x10*3/uL (2.0-8.3); Neutrophils Percent Auto 47.2 % (45-73); Platelet Count 219 X10*3/uL (160-400); Red Blood Count 4.17 X10*6/uL (4.20-5.50); Red Cell Distribution Width 12.4 % (11.0-16.0); White Blood Count 8.9 X10*3/uL (4.8-10.8)
[2021-12-24 14:39] LABS: Creatinine Urine 22.95 mg/dL; Microalbumin Urine < 5.0 mg/L
[2021-12-24 14:40] LABS: Alanine Aminotransferase 16 U/L (0-31); Albumin Level 4.5 g/dL (3.5-5.0); Alkaline Phosphatase 69 U/L (39-117); Anion Gap 14 (12-20); Aspartate Amino Transferase 19 U/L (5-31); Bilirubin Total 0.4 mg/dL (0.0-1.0); Blood Urea Nitrogen 25 mg/dL (9-16); C Reactive Protein 0.07 mg/dL (< or = 0.50); Calcium 10.5 mg/dL (8.4-10.2); Carbon Dioxide 30 mmol/L (22-29); Chloride 99 mmol/L (96-108); Estimated Glomerular Filt Rate 56; Glucose Random 110 mg/dL (60-115); Potassium 4.4 mmol/L (3.3-5.1); Sodium 139 mmol/L (135-145); Total Protein 7.8 g/dL (6.5-8.0)
[2021-12-24 14:40] LABS: Appearance Urine CLEAR; Color Urine YELLOW; Glucose Urine UA NEG (NEG); Leukocyte Esterase Urine NEG (NEG); Nitrite Urine NEG (NEG); Specific Gravity - Urine 1.015 (1.005-1.025); Urine Blood NEG (NEG); Urine Ketones NEG (NEG); Urine Protein NEG (NEG-TRACE)
[2021-12-24 15:21] LABS: Erythrocyte Sedimentation Rate 26 MM/HR (0-20)
== END 2021-12-24 13:21 | disposition home or self-care (01) ==
LOC: HO.LAB 13:20
PROVIDERS: Absent Provider Internal Medicine; PCP Internal Medicine; Visit Provider Nurse Practitioner Family
DX: L40.50 Arthropathic psoriasis, unspecified (principal); E11.9 Type 2 diabetes mellitus without complications; I10 Essential (primary) hypertension; M54.50 Low back pain, unspecified; E83.52 Hypercalcemia; Z79.899 Other long term (current) drug therapy
CPT/HCPCS: 36415; 80053; 81003; 82043; 85025; 85652; 86140; 99212

== ENCOUNTER 2022-01-27 09:43 | Outpatient (REF) | payer OTHER, SELFPAY ==
[2022-01-27 09:56] LABS: MANUAL DIFF FLAG NO
[2022-01-27 10:11] LABS: Basophils Percent Auto 0.4 % (0-2); Eosinophils Absolute Auto 0.3 X10*3/uL (0.0-0.4); Hematocrit 39.9 % (37.0-47.0); Hemoglobin 13.3 g/dl (12.0-16.0); Imm Gran Abs Auto 0.02 X10*3/uL (0.00-0.03); Imm Gran Pct Auto 0.2 % (0.0-0.4); Mean Corpuscular HGB Conc 33.3 g/dl (31.0-35.0); Mean Corpuscular Hemoglobin 31.7 pg (27.0-33.0); Mean Platelet Volume 10.3 fL (9.4-12.3); Monocytes Absolute Auto 0.7 X10*3/uL (0.1-1.2); Monocytes Percent Auto 7.6 % (2-11); Neutrophils Absolute Auto 5.1 x10*3/uL (2.0-8.3); Neutrophils Percent Auto 55.8 % (45-73); Platelet Count 201 X10*3/uL (160-400); Red Cell Distribution Width 12.3 % (11.0-16.0); White Blood Count 9.1 X10*3/uL (4.8-10.8)
[2022-01-27 10:42] LABS: Alanine Aminotransferase 20 U/L (0-31); Albumin Level 4.8 g/dL (3.5-5.0); Alkaline Phosphatase 72 U/L (39-117); Anion Gap 13 (12-20); Aspartate Amino Transferase 20 U/L (5-31); Bilirubin Total 0.5 mg/dL (0.0-1.0); Blood Urea Nitrogen 16 mg/dL (9-16); Carbon Dioxide 30 mmol/L (22-29); Chloride 101 mmol/L (96-108); Cholesterol 185 mg/dL; Estimated Glomerular Filt Rate 53; Glucose Fasting 171 mg/dL (60-99); HDL Cholesterol 53 mg/dL; LDL Cholesterol Calculated 95 mg/dl; Potassium 4.6 mmol/L (3.3-5.1); Sodium 139 mmol/L (135-145); Total Protein 8.2 g/dL (6.5-8.0); Triglycerides 189 mg/dL
[2022-01-27 10:45] LABS: Estimated Average Glucose 157 mg/dL; Hemoglobin A1c % 7.1 %
[2022-01-27 11:06] LABS: TSH reflex Free T4 0.68 uIU/mL (0.32-4.0)
== END 2022-01-27 09:44 | disposition home or self-care (01) ==
LOC: HO.LAB 09:43
PROVIDERS: PCP Internal Medicine; Visit Provider Internal Medicine
DX: I10 Essential (primary) hypertension (principal); E55.9 Vitamin D deficiency, unspecified; E11.9 Type 2 diabetes mellitus without complications; E78.00 Pure hypercholesterolemia, unspecified
CPT/HCPCS: 36415; 80053; 80061; 82306; 83036; 84443; 85025

== ENCOUNTER → 2022-02-17 10:40 | Outpatient (BNVA) | payer OTHER, SELFPAY | PROVIDERS: PCP Internal Medicine; Visit Provider Internal Medicine | DX: E11.65 Type 2 diabetes mellitus with hyperglycemia (principal); E78.5 Hyperlipidemia, unspecified; E21.3 Hyperparathyroidism, unspecified; E04.2 Nontoxic multinodular goiter; E55.9 Vitamin D deficiency, unspecified; I10 Essential (primary) hypertension; Z79.4 Long term (current) use of insulin | CPT/HCPCS: 82947; 99212 ==

== ENCOUNTER 2022-02-19 09:59 | Outpatient (REF) | payer OTHER, SELFPAY ==
--- NOTE | ~2022-02-19 | XR_ITS ---
EXAMINATION: XR HIP, LEFT CLINICAL INFORMATION: Pain. COMPARISON: CT the abdomen and pelvis dated 02/05/2021. TECHNIQUE: AP and frog-leg lateral views of the left hip. FINDINGS: Bony alignment and mineralization are normal. No fracture. Alignment is anatomic. Hip joint space is maintained.. There are minimal enthesophytes seen of the greater tuberosity of the proximal left femur. Periurethral calcifications are redemonstrated XR/XR hip LT min 2V IMPRESSION: Unremarkable left hip.
== END 2022-02-19 10:00 | disposition home or self-care (01) ==
LOC: HO.XRAY 09:59
PROVIDERS: PCP Internal Medicine; Visit Provider Nurse Practitioner Family
DX: M25.552 Pain in left hip (principal)
CPT/HCPCS: 73502; 99202

== ENCOUNTER 2022-03-26 10:48 | Outpatient (REF) | payer OTHER, SELFPAY ==
[2022-03-26 13:34] LABS: MANUAL DIFF FLAG NO
[2022-03-26 13:45] LABS: Basophils Absolute Auto 0.1 X10*3/uL (0.0-0.2); Basophils Percent Auto 0.8 % (0-2); Eosinophils Absolute Auto 0.5 X10*3/uL (0.0-0.4); Eosinophils Percent Auto 5.1 % (0-4); Hematocrit 38.6 % (37.0-47.0); Hemoglobin 12.5 g/dl (12.0-16.0); Imm Gran Abs Auto 0.03 X10*3/uL (0.00-0.03); Imm Gran Pct Auto 0.3 % (0.0-0.4); Lymphocytes Absolute Auto 2.5 X10*3/uL (1.2-4.9); Lymphocytes Percent Auto 23.6 % (20-40); Mean Corpuscular HGB Conc 32.4 g/dl (31.0-35.0); Mean Corpuscular Hemoglobin 30.8 pg (27.0-33.0); Mean Corpuscular Volume 95.1 fL (80.0-98.0); Mean Platelet Volume 10.8 fL (9.4-12.3); Monocytes Absolute Auto 0.7 X10*3/uL (0.1-1.2); Monocytes Percent Auto 6.8 % (2-11); Neutrophils Absolute Auto 6.7 x10*3/uL (2.0-8.3); Neutrophils Percent Auto 63.4 % (45-73); Platelet Count 219 X10*3/uL (160-400); Red Blood Count 4.06 X10*6/uL (4.20-5.50); Red Cell Distribution Width 12.1 % (11.0-16.0); White Blood Count 10.5 X10*3/uL (4.8-10.8)
[2022-03-26 14:00] LABS: Alanine Aminotransferase 25 U/L (0-31); Aspartate Amino Transferase 20 U/L (5-31); C Reactive Protein 0.11 mg/dL (< or = 0.50); Estimated Glomerular Filt Rate 52
[2022-03-26 14:20] LABS: Erythrocyte Sedimentation Rate 44 MM/HR (0-20)
== END 2022-03-26 10:49 | disposition home or self-care (01) ==
LOC: HO.10HDL 10:48
PROVIDERS: Visit Provider Nurse Practitioner Family
DX: L40.50 Arthropathic psoriasis, unspecified (principal); M54.50 Low back pain, unspecified; E83.52 Hypercalcemia; Z79.899 Other long term (current) drug therapy
CPT/HCPCS: 36415; 82565; 84450; 84460; 85025; 85652; 86140; 99212

== ENCOUNTER → 2022-04-02 10:02 | Outpatient (BNVA) | payer OTHER, SELFPAY | PROVIDERS: PCP Internal Medicine; Visit Provider Hospitalist | DX: G47.33 Obstructive sleep apnea (adult) (pediatric) (principal); F51.01 Primary insomnia; J45.20 Mild intermittent asthma, uncomplicated | CPT/HCPCS: 99212 ==

== ENCOUNTER 2022-04-27 16:35 | Inpatient (IN) | payer OTHER, SELFPAY ==
[2022-04-27] VITALS (10 sets, daily range): BP systolic 94–118; BP diastolic 34–76; PULSE 66–75; RESP 12–20; TEMP 36.3–37.1; O2SAT 93–98; BMI 31.6
--- NOTE | ~2022-04-27 | CT_ITS ---
EXAMINATION: CT ABDOMEN AND PELVIS WITH CONTRAST CLINICAL INFORMATION: Left upper quadrant pain COMPARISON: 02/05/2021 TECHNIQUE: Multidetector volumetric images were obtained from the superior aspect of the liver through the pubic symphysis following administration 85 mL of Omnipaque 350 intravenous contrast. Sagittal and coronal reformatted images were obtained on the technologist's workstation. Oral contrast: No This CT examination was performed using dose optimization techniques as appropriate, variously including the following: *Automated exposure control *Adjustment of mA and/or kV according to patient size (this includes techniques or standardized protocols for targeted exams where dose is matched to indication/reason for exam; i.e. extremities or head) *Use of iterative reconstruction technique DLP: 579 mGy-cm FINDINGS: LUNG BASES: The visualized lung bases are unremarkable. LIVER, GALLBLADDER, AND BILIARY TREE: Very small subcentimeter low-density structure in the right lobe on image 34. May be incidental. Not adequately seen on previous noncontrast imaging The gallbladder is unremarkable with no evidence of radiopaque gallstones, gallbladder wall thickening, or obvious pericholecystic inflammatory changes. PANCREAS: The pancreatic head region is abnormal. Enlargement with a low-density structure measuring 2.2 x 1.5 cm. There is also dilatation of the pancreatic duct. No convincing evidence for intrahepatic ductal dilatation. SPLEEN: Unremarkable. ADRENAL GLANDS: Once again probable small myelolipoma in the right adrenal KIDNEYS AND URETERS: Once again cystic change on the left. The kidneys appear nonhydronephrotic BLADDER: Unremarkable. GASTROINTESTINAL TRACT: The bowel pattern is felt to be nonobstructing. There is no free fluid ABDOMINAL WALL: No significant hernia is appreciated. LYMPH NODES: Normal. VASCULAR: Some atherosclerotic changes are noted PELVIC VISCERA: Unremarkable. OSSEOUS STRUCTURES: Unremarkable. CT/CT abdomen pelvis w IV con IMPRESSION: This exam is abnormal. The pancreatic head is enlarged with a low-density structure associated with it. Differential would include tumor versus possible sequela of pancreatitis. There is dilatation of the pancreatic duct but no intrahepatic ductal dilatation is seen. Recommend dynamic MRI/MRCP for full evaluation. Also noted here is a small low-density lesion in the right lobe of liver of uncertain etiology. Given the findings in the pancreas and small metastatic focus cannot be excluded. Fleischner guidelines were followed.
--- NOTE | ~2022-04-27 | US_ITS ---
EXAMINATION: US ABDOMEN LIMITED CLINICAL INFORMATION: Left upper quadrant pain. Pancreatitis.. COMPARISON: Previous CT of the abdomen and pelvis from earlier the same day TECHNIQUE: Real-time imaging of the right upper quadrant abdominal viscera. FINDINGS: PANCREAS: There is a hypoechoic mass in the head of the pancreas measuring 4.7 x 3.5 x 3.6 cm. There is dilatation of the main pancreatic duct measuring 6 mm. LIVER: Liver echotexture is normal. There is a 1 x 0.9 x 0.8 cm hypooechoic lesion in the right lobe of the liver. This uncertain whether this represents a cyst or solid lesion. No other focal liver lesion. No biliary duct dilatation.. There is no intrahepatic biliary duct dilatation seen. GALLBLADDER: Normal. The gallbladder is physiologically distended without evidence of stones, sludge, polyps, wall thickening or pericholecystic fluid. COMMON BILE DUCT: Normal in caliber measuring 0.4 cm in diameter. RIGHT KIDNEY: Normal. No hydronephrosis. No renal calculi or focal parenchymal lesions. The kidney measures 11 cm in maximum dimension. FREE FLUID: None. US/US abdomen limited IMPRESSION: 4.7 x 3.5 x 3.6 cm mass in the head of the pancreas and dilatation of the main pancreatic duct. 1 cm hypoechoic lesion in the right lobe of the liver, question complex cyst versus solid lesion.
--- NOTE | 2022-04-27 17:05 | ED_ITS ---
HPI - Abdominal Pain General Chief Complaint: Abdominal Pain Stated Complaint: Abdominal pain Time Seen by Provider: 04/27/22 17:01 Source: patient and EMS Mode of arrival: EMS Limitations: no limitations History of Present Illness HPI narrative: 76-year-old female history of type 2 diabetes, hyperlipidemia, hyperp arathyroidism, insomnia, LISSA, nonischemic cardiomyopathy, left bundle-branch block, hypertension, dyslipidemia presenting to the emergency department with complaints of epigastric pain times a few weeks patient tells me she has been having severe stabbing intermittent pain to the epigastric/left region. Patient tells me that the pain is intolerable. She tells me she thinks that her pancreas she tells me she was admitted at [facility] for a pancreas issue for 3 days in early April. Patient endorses nausea. And tells me she has had poor p.o. intake. Denies vomiting, diarrhea, changes in urination, fevers, chills, chest pain, shortness of breath, weakness. Related Data Home Medications Medication Instructions Recorded Confirmed memantine 10 mg tablet 10 mg PO BID 06/19/20 04/27/22 furosemide 40 mg tablet 40 mg PO DAILY 10/27/20 03/26/22 sennosides 8.6 mg tablet 17.2 mg PO DAILY PRN Constipation 01/20/21 04/27/22 lorazepam 0.5 mg tablet 0.5 mg PO BEDTIME PRN Anxiety 02/23/21 04/27/22 blood-glucose meter (FreeStyle 05/05/21 03/26/22 [place] Lite kit) escitalopram oxalate 20 mg tablet 20 mg PO DAILY 04/02/22 04/27/22 dicyclomine 20 mg tablet 20 mg PO QID PRN Abdominal 04/27/22 04/27/22 Discomfort insulin degludec 100 unit/mL (3 30 unit subcut BEDTIME 04/27/22 04/27/22 mL) subcutaneous pen (Tresiba FlexTouch U-100 insulin) metformin 500 mg tablet,extended 500 mg PO BIDWM 04/27/22 04/27/22 release 24hr plecanatide 3 mg tablet (Trulance) 3 mg PO DAILY 04/27/22 04/27/22 tizanidine 2 mg tablet 2 mg PO BEDTIME PRN Muscle Spasm 04/27/22 04/27/22 tramadol 50 mg tablet 1 tab PO Q6H PRN severe pain 04/27/22 04/27/22 Previous Rx's Medication Instructions Recorded acetaminophen 500 mg tablet 500 mg PO Q8H PRN fever 30 days 05/30/20 #90 tabs albuterol sulfate 90 mcg/actuation 2 puff inhalation Q6H PRN 04/21/21 aerosol inhaler (ProAir HFA) Shortness Of Breath 30 days #8.5 grams lisinopril 20 mg tablet 20 mg PO DAILY 90 days #90 tabs 07/02/21 pen needle, diabetic 32 gauge x #100 ea 08/19/21 (BD Cori 2nd Gen Pen Needle) carvedilol 12.5 mg tablet 12.5 mg PO BID 90 days #180 tabs 08/27/21 ivabradine 5 mg tablet (Corlanor) 5 mg PO DAILY 30 days #90 tabs 08/27/21 fluticasone furoate 100 1 inh inhalation DAILY 30 days #60 09/29/21 mcg-vilanterol 25 mcg/dose ea inhalation powder (Breo Ellipta) HUMIDIFIER #1 ea 10/22/21 albuterol sulfate 2.5 mg/3 mL 2.5 mg (3 mL) continuous 10/22/21 (0.083 %) solution for nebulization nebulization Q6H PRN shortness of breath or wheezing 30 days #360 mL blood sugar diagnostic (FreeStyle #100 ea 10/22/21 Lite Strips) fluticasone propionate 50 2 spray intranasal DAILY PRN 10/22/21 mcg/actuation nasal allergy symptoms #16 grams spray,suspension famotidine 20 mg tablet 40 mg PO DAILY #60 tabs 01/15/22 docusate sodium 100 mg capsule 100 mg PO BID PRN constipation 30 02/10/22 days #60 caps calcium carbonate 500 mg-vitamin 1 tab PO BID #60 tabs 02/16/22 D3 5 mcg (200 unit) tablet (Oyster Shell Calcium-Vitamin D3) atorvastatin 80 mg tablet 80 mg PO BEDTIME 30 days #30 tabs 02/17/22 trazodone 50 mg tablet 100 mg PO BEDTIME #60 tabs 03/10/22 secukinumab 150 mg/mL subcutaneous 150 mg subcut Q4W #2 mL 03/26/22 pen injector ezetimibe 10 mg tablet 10 mg PO DAILY #30 tabs 03/27/22 folic acid 1 mg tablet 1 mg PO DAILY #30 tabs 03/27/22 dulaglutide 3 mg/0.5 mL 3 mg (0.5 mL) subcut QWEEK 90 days 03/30/22 subcutaneous pen injector #6.5 mL (Trulicity) gabapentin 300 mg capsule 300 mg PO BEDTIME 30 days #30 caps 04/02/22 Allergies Allergy/AdvReac Type Severity Reaction Status Date / Time aspirin [Aspirin] Allergy Severe STOMACH Verified 04/02/22 10:13 UPSET, stomach pain baclofen Allergy Severe dizziness Verified 04/02/22 10:13 oxycodone [Percocet] Allergy Severe itchiness Verified 04/02/22 10:13 Penicillins Allergy Severe ANAPHYLAXIS Verified 04/02/22 10:13 Review of Systems Review of Systems Constitutional : No Weight loss, No Fever, No Chills, No Fatigue, No Malaise ENT/Mouth : No sore throat, No Rhinorrhea Eyes: No Eye Pain, No Swelling, No Redness Cardiovascular : No Chest Pain, No SOB, No Dyspnea on Exertion, No Orthopnea, No Edema, No Palpitations Respiratory : No Cough, No Sputum, No Wheezing Gastrointestinal : + Nausea, No Vomiting, No Diarrhea, No Constipation, + abdominal Pain, No Hematochezia, No Melena Genitourinary : No Dysuria, No Urinary Frequency, No Hematuria, Musculoskeletal : No joint pain, No Myalgias, No Joint Swelling Skin : No Skin Lesions, No rash Neuro : No Weakness, No Numbness, No Dizziness, No Headache Psych : No Anxiety/Panic, No Depression All other systems reviewed and are negative Yes all other systems are reviewed and are negative [facility] Past Medical History Attestation statement: The following information was validated with the patient. Source: old records reviewed and nursing notes reviewed Medical History Anxiety Asthma Benign essential hypertension Cardiomyopathy Chronic kidney disease (CKD), stage III (moderate) Constipation Dementia Depression Diabetes mellitus Dyslipidemia Dysphagia GERD without esophagitis HLD (hyperlipidemia) Hyperparathyroidism Hypertension Insomnia Insomnia LBBB (left bundle branch block) Low Back Pain Mixed stress and urge urinary incontinence Multinodular thyroid NICM (nonischemic cardiomyopathy) (Unknown) Non-toxic multinodular goiter Obesity (BMI 30-39.9) LISSA (obstructive sleep apnea) Psoriatic arthritis Pure hypercholesterolemia Sinus tachycardia T2DM (type 2 diabetes mellitus) 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 2 diabetes mellitus with other diabetic kidney complication UTI (urinary tract infection) UTI (urinary tract infection) Vitamin D deficiency Surgical History History of section History of knee replacement procedure of right knee History of left knee replacement History of partial hysterectomy History of repair of rotator cuff History of shoulder surgery History of surgery Family History Family History Father Prostate cancer Mouth cancer Mother Type 2 diabetes mellitus Hyperlipidemia Diabetes Hypertension Other Mental health problem Social History Social History Household Members: None Housing: Apartment Alcohol intake: current Alcohol intake frequency: holidays/special occasions only Patient Tobacco Use Status: Never used Tobacco Second Hand Smoke Exposure: No Advance Directives: No Advance Directives Information Provided: Yes service: No Current occupational status: retired Cognitive needs: No Hearing needs: No Vision needs: Yes Physical Exam ED Vital Signs: Vital Signs - 24 hr 04/27/22 16:59 04/27/22 17:01 04/27/22 18:51 Temperature 98.7 F 98.7 F 98.4 F Pulse Rate 75 75 70 Respiratory Rate 20 20 20 Blood Pressure 94/51 L 94/51 L 111/34 L Pulse Oximetry 94 94 94 Oxygen Delivery Method Room Air Room Air Room Air 04/27/22 19:33 04/27/22 19:34 Temperature Pulse Rate 68 Respiratory Rate 17 17 Blood Pressure 118/44 L Pulse Oximetry 94 Oxygen Delivery Method Room Air BMI result Body Mass Index 31.6 Vital signs stable, patient noted to have a soft pressure however. Appearance: Alert.? Oriented X3.? No acute distress.? Head: Normocephalic, atraumatic, no step-offs or deformities Eyes: Pupils equal, round and reactive to light.? ENT: Pharynx normal.? Neck: Normal inspection.? Neck supple.? CVS: Normal heart rate and rhythm.? Pulses normal.? Respiratory: No respiratory distress.? Breath sounds normal.? Abdomen: Soft, normoactive bowel sounds, minimally distended. Patient with tenderness to palpation of epigastric and left upper quadrant region. Negative Cain's sign. Skin: Skin warm and dry.? Normal skin color.? Normal skin turgor.? Extremities: No lower extremity edema.? No calf ttp. 5/5 strength to bilateral upper and lower extremities Neuro: Oriented X 3.? No motor deficit.? No sensory deficit. CN 2-12 intact Course Reevaluation(s) Reevaluation #1: CBC appears to be around baseline. Chemistry within acute kidney injury, low magnesium, magnesium will be repleted via IV. Glucose noted to be 307, will hydrate with IV fluids and check point of care afterwards. Lipase 657 consiste nt with acute pancreatitis. Lactic acid is negative. Time: 18:47 Reevaluation #2: CT of the abdomen and pelvis within abnormal pancreatic head, pancreatic head is enlarged with low density structure associated with it, differential includes tumor versus sequelae of pancreatitis. Patient will likely require an MRI/MRCP, patient has significant discomfort at this time patient will be admitted to the hospitalist team for further evaluation and treatment. There is also a right liver lobe noted. Time: 20:24 MDM - Abdominal Pain MDM Narrative Medical decision making narrative: 1715 76-year-old female presents with epigastric and left upper quadrant pain times a few weeks worsening. Reports recent admission at [facility] for pancreas issue. Upon physical examination patient appears uncomfortable, blood pressure soft, regular rate and rhythm, lungs clear, abdomen tenderness to epigastric region and left upper quadrant, normoactive bowel sounds, minimally distended. Neuro nonfocal. Concerns for pancreatitis. Unlikely cholecystitis, appendicitis. Plan at this time is basic labs, blood cultures, lactic acid, lipase, triglycerides, UA, COVID. Patient will get fluids and morphine for pain. Medical Records Attestation: I reviewed the patient's medical records. Lab Data Attestation: I reviewed the patient's lab results. Result diagrams: 04/27/22 18:11 04/27/22 18: Labs: Lab Results 04/27/22 04/27/22 04/27/22 Range/Units 18:05 18:11 18:11 WBC 10.0 (4.8-10.8) X10*3/uL RBC 3.76 L (4.20-5.50) X10*6/uL Hgb 11.3 L (12.0-16.0) g/dl Hct 34.6 L (37.0-47.0) % MCV 92.0 (80.0-98.0) fL MCH 30.1 (27.0-33.0) pg MCHC 32.7 (31.0-35.0) g/dl RDW 12.6 (11.0-16.0) % Plt Count 244 (160-400) X10*3/uL MPV 10.6 (9.4-12.3) fL Immature Gran % (Auto) 0.7 H (0.0-0.4) % Neut % (Auto) 55.7 (45-73) % Lymph % (Auto) 27.6 (20-40) % [place] % (Auto) 8.3 (2-11) % Eos % (Auto) 7.0 H (0-4) % Baso % (Auto) 0.7 (0-2) % Lymph # (Auto) 2.8 (1.2-4.9) X10*3/uL [place] # (Auto) 0.8 (0.1-1.2) X10*3/uL Eos # (Auto) 0.7 H (0.0-0.4) X10*3/uL Baso # (Auto) 0.1 (0.0-0.2) X10*3/uL Abs Immat Gran (auto) 0.07 H (0.00-0.03) X10*3/uL Absolute Neuts (auto) 5.6 (2.0-8.3) x10*3/uL Absolute Nucleated RBC 0.000 (0.0-0.012) X10*3/uL Nucleated RBC % (auto) 0.0 (0.0-0.2) /100WBC Sodium 137 (135-145) mmol/L Potassium 4.6 (3.3-5.1) mmol/L Chloride 97 (96-108) mmol/L Carbon Dioxide 28 (22-29) mmol/L Anion Gap 17 (12-20) BUN 24 H (9-16) mg/dL Creatinine 1.43 H (0.5-1.4) mg/dL Estim Creat Clear Calc 33.4 Estimated GFR 36 Random Glucose 307 H (60-115) mg/dL Lactic Acid 1.0 (0.5-2.0) mmol/L Calcium 9.4 (8.4-10.2) mg/dL Magnesium 1.4 L* (1.6-2.6) mg/dL Total Bilirubin 0.4 (0.0-1.0) mg/dL AST 17 (5-31) U/L ALT 12 (0-31) U/L Alkaline Phosphatase 85 (39-117) U/L Total Creatine Kinase (26-140) U/L Total Protein 7.2 (6.5-8.0) g/dL Albumin 4.0 (3.5-5.0) g/dL Triglycerides mg/dL Lipase 657 H (8-78) U/L COVID-19 (MARCELO) (Negative) COVID-19 Clin Com 04/27/22 04/27/22 04/27/22 Range/Units 18:11 18:11 18:11 WBC (4.8-10.8) X10*3/uL RBC (4.20-5.50) X10*6/uL Hgb (12.0-16.0) g/dl Hct (37.0-47.0) % MCV (80.0-98.0) fL MCH (27.0-33.0) pg MCHC (31.0-35.0) g/dl RDW (11.0-16.0) % Plt Count (160-400) X10*3/uL MPV (9.4-12.3) fL Immature Gran % (Auto) (0.0-0.4) % Neut % (Auto) (45-73) % Lymph % (Auto) (20-40) % [place] % (Auto) (2-11) % Eos % (Auto) (0-4) % Baso % (Auto) (0-2) % Lymph # (Auto) (1.2-4.9) X10*3/uL [place] # (Auto) (0.1-1.2) X10*3/uL Eos # (Auto) (0.0-0.4) X10*3/uL Baso # (Auto) (0.0-0.2) X10*3/uL Abs Immat Gran (auto) (0.00-0.03) X10*3/uL Absolute Neuts (auto) (2.0-8.3) x10*3/uL Absolute Nucleated RBC (0.0-0.012) X10*3/uL Nucleated RBC % (auto) (0.0-0.2) /100WBC Sodium (135-145) mmol/L Potassium (3.3-5.1) mmol/L Chloride (96-108) mmol/L Carbon Dioxide (22-29) mmol/L Anion Gap (12-20) BUN (9-16) mg/dL Creatinine (0.5-1.4) mg/dL Estim Creat Clear Calc Estimated GFR Random Glucose (60-115) mg/dL Lactic Acid (0.5-2.0) mmol/L Calcium (8.4-10.2) mg/dL Magnesium (1.6-2.6) mg/dL Total Bilirubin (0.0-1.0) mg/dL AST (5-31) U/L ALT (0-31) U/L Alkaline Phosphatase (39-117) U/L Total Creatine Kinase 49 (26-140) U/L Total Protein (6.5-8.0) g/dL Albumin (3.5-5.0) g/dL Triglycerides 122 mg/dL Lipase (8-78) U/L COVID-19 (MARCELO) Negative (Negative) COVID-19 Clin Com See Note Critical Care Time Critical Care Time Critical Care Time: No Discharge Plan Discharge Clinical Impression: Acute pancreatitis, Abdominal pain, SHABANA (acute kidney injury), Nausea, Lesion of liver Patient Disposition: Still a Patient Prescriptions: No Action lisinopril 20 mg tablet 20 mg PO DAILY 90 Days Qty: 90 3RF oxybutynin chloride 5 mg tablet 5 mg PO BID Qty: 56 3RF (DME) pen needle, diabetic [BD Cori 2nd Gen Pen Needle] 32 gauge x 5/32 needle See Rx Instructions .MEDSUPPLY Qty: 100 4RF Rx Instructions: once a day carvedilol 12.5 mg tablet 12.5 mg PO BID 90 Days Qty: 180 3RF Corlanor 5 mg tablet 5 mg PO DAILY 30 Days Qty: 90 3RF famotidine 20 mg tablet 40 mg PO DAILY Qty: 60 0RF Tresiba FlexTouch U-100 100 unit/mL (3 mL) insulin pen 30 unit subcut DAILY 30 Days Qty: 9 2RF docusate sodium 100 mg capsule 100 mg PO BID PRN (Reason: constipation) 30 Days Qty: 60 0RF calcium carbonate-vitamin D3 [Oyster Shell Calcium-Vit D3] 500 mg-5 mcg (200 unit) tablet 1 tab PO BID Qty: 60 2RF trazodone 50 mg tablet 100 mg PO BEDTIME Qty: 60 3RF folic acid 1 mg tablet 1 mg PO DAILY Qty: 30 1RF ezetimibe 10 mg tablet 10 mg PO DAILY Qty: 30 1RF Trulicity 3 mg/0.5 mL pen injector 3 mg subcut QWEEK 90 Days Qty: 6.5 1RF tramadol 50 mg tablet 1 tab PO Q6H PRN (Reason: severe pain) tizanidine 2 mg tablet 2 mg PO BEDTIME PRN (Reason: Muscle Spasm) Rx Instructions: start with 1/2 tab as medication can cause sedation dicyclomine 20 mg tablet 20 mg PO QID PRN (Reason: Abdominal Discomfort) metformin 500 mg tablet extended release 24hr 500 mg PO BIDWM Trulance 3 mg tablet 3 mg PO DAILY sennosides 8.6 mg tablet 17.2 mg PO DAILY PRN (Reason: Constipation) acetaminophen 500 mg tablet 500 mg PO Q8H PRN (Reason: fever) 30 Days Qty: 90 3RF (DME) FreeStyle Lite Strips Strip See Rx Instructions .Route Qty: 100 11RF Rx Instructions: As directed two times a day albuterol sulfate 2.5 mg /3 mL (0.083 %) solution for nebulization 2.5 mg continuous nebulization Q6H PRN (Reason: shortness of breath or wheezing) 30 Days Qty: 360 5RF fluticasone propionate 50 mcg/actuation spray,suspension 2 spray intranasal DAILY PRN (Reason: allergy symptoms) Qty: 16 5RF Rx Instructions: administer into each nostril (DME) HUMIDIFIER See Rx Instructions .Route .MEDSUPPLY Qty: 1 0RF Rx Instructions: As directed furosemide 40 mg tablet 40 mg PO DAILY memantine 10 mg tablet 10 mg PO BID lorazepam 0.5 mg tablet 0.5 mg PO BEDTIME PRN (Reason: Anxiety) (DME) blood-glucose meter [DreamHeartyle [place] Lite] Kit See Rx Instructions .Route Rx Instructions: As directed twice a day albuterol sulfate [ProAir HFA] 90 mcg/actuation HFA aerosol inhaler 2 puff inhalation Q6H PRN (Reason: Shortness Of Breath) 30 Days Qty: 8.5 11RF Breo Ellipta 100-25 mcg/dose blister with device 1 inh inhalation DAILY 30 Days Qty: 60 11RF escitalopram oxalate 20 mg tablet 20 mg PO DAILY gabapentin 300 mg capsule 300 mg PO BEDTIME 30 Days Qty: 30 6RF atorvastatin 80 mg tablet 80 mg PO BEDTIME 30 Days Qty: 30 11RF secukinumab 150 mg/mL pen injector 150 mg subcut Q4W Qty: 2 1RF
[2022-04-27 18:19] LABS: MANUAL DIFF FLAG NO
[2022-04-27 18:33] LABS: Triglycerides 122 mg/dL
[2022-04-27 18:36] LABS: COVID-19 Test Negative (Negative); IDNOW Serial# 16C4AD1C
[2022-04-27 18:40] LABS: Basophils Absolute Auto 0.1 X10*3/uL (0.0-0.2); Basophils Percent Auto 0.7 % (0-2); Eosinophils Absolute Auto 0.7 X10*3/uL (0.0-0.4); Hematocrit 34.6 % (37.0-47.0); Hemoglobin 11.3 g/dl (12.0-16.0); Imm Gran Abs Auto 0.07 X10*3/uL (0.00-0.03); Imm Gran Pct Auto 0.7 % (0.0-0.4); Lymphocytes Absolute Auto 2.8 X10*3/uL (1.2-4.9); Lymphocytes Percent Auto 27.6 % (20-40); Mean Corpuscular HGB Conc 32.7 g/dl (31.0-35.0); Mean Corpuscular Hemoglobin 30.1 pg (27.0-33.0); Mean Platelet Volume 10.6 fL (9.4-12.3); Monocytes Absolute Auto 0.8 X10*3/uL (0.1-1.2); Monocytes Percent Auto 8.3 % (2-11); Neutrophils Absolute Auto 5.6 x10*3/uL (2.0-8.3); Neutrophils Percent Auto 55.7 % (45-73); Platelet Count 244 X10*3/uL (160-400); Red Blood Count 3.76 X10*6/uL (4.20-5.50); Red Cell Distribution Width 12.6 % (11.0-16.0)
[2022-04-27 18:43] LABS: Alanine Aminotransferase 12 U/L (0-31); Alkaline Phosphatase 85 U/L (39-117); Anion Gap 17 (12-20); Aspartate Amino Transferase 17 U/L (5-31); Bilirubin Total 0.4 mg/dL (0.0-1.0); Blood Urea Nitrogen 24 mg/dL (9-16); Calcium 9.4 mg/dL (8.4-10.2); Carbon Dioxide 28 mmol/L (22-29); Chloride 97 mmol/L (96-108); Creatinine Clr Calc Pharmacy 33.4; Estimated Glomerular Filt Rate 36; Glucose Random 307 mg/dL (60-115); Lipase 657 U/L (8-78); Magnesium 1.4 mg/dL (1.6-2.6); Potassium 4.6 mmol/L (3.3-5.1); Sodium 137 mmol/L (135-145); Total Protein 7.2 g/dL (6.5-8.0)
[2022-04-27] MEDS: iohexoL 350 MG/ML 100 ML INFUS..BTL IV (19:06)
[2022-04-27] MEDS: Morphine Sulfate 4 MG/ML CARTRIDGE IVPUSH (19:33)
[2022-04-27] MEDS: Magnesium Sulfate/D5W 1 GM/100 ML PIGGYBACK IV ×2 (19:33→21:31)
[2022-04-27] MEDS: 0.9 % Sodium Chloride 1,000 ML 999 ML IV ×2 (19:34→20:50)
--- NOTE | 2022-04-27 20:25 | PHA.MEDREC ---
Pharmacy Consult ? Medication Reconciliation Pharmacy has completed the medication reconciliation.
--- NOTE | 2022-04-27 21:02 | PM.IMHP ---
History of Present Illness Date of Service: 04/27/22 Chief Complaint: Epigastric pain This is a 76 year old female with a pertinent history of insulin-dependent diabetes mellitus, generalized anxiety disorder, mixed hyperlipidemia, insomnia, nonischemic cardiomyopathy who presents to the emergency department for evaluation of epigastric pain. Patient states she was admitted to [facility] and discharged about 3 weeks ago for similar complaints. She is a poor historian and does not remember her diagnosis but states it was related to her pancreas. Patient continued to have epigastric pain after discharge from [facility], which was progressive in onset, nonradiating, worsened with p.o. intake and without any relieving factors. Patient also has associated nausea and is with poor p.o. intake over the last 2 weeks. Patient denies significant alcohol use. She denies fever, chills, vomiting, chest discomfort, shortness of breath, palpitations, changes in urinary or bowel habits. History was obtained via sign language interpreter In the emergency department, workup was concerning for acute pancreatitis and imaging showed enlarged pancreatic head. Review of Systems Review of Systems: All 13 review of systems are negative except as noted in [facility] Medical History Anxiety Asthma Benign essential hypertension Cardiomyopathy Chronic kidney disease (CKD), stage III (moderate) Constipation Dementia Depression Diabetes mellitus Dyslipidemia Dysphagia GERD without esophagitis HLD (hyperlipidemia) Hyperparathyroidism Hypertension Insomnia Insomnia LBBB (left bundle branch block) Low Back Pain Mixed stress and urge urinary incontinence Multinodular thyroid NICM (nonischemic cardiomyopathy) (Unknown) Non-toxic multinodular goiter Obesity (BMI 30-39.9) LISSA (obstructive sleep apnea) Psoriatic arthritis Pure hypercholesterolemia Sinus tachycardia T2DM (type 2 diabetes mellitus) 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 2 diabetes mellitus with other diabetic kidney complication UTI (urinary tract infection) UTI (urinary tract infection) Vitamin D deficiency Family History Father Prostate cancer Mouth cancer Mother Type 2 diabetes mellitus Hyperlipidemia Diabetes Hypertension Other Mental health problem Surgical History History of section History of knee replacement procedure of right knee History of left knee replacement History of partial hysterectomy History of repair of rotator cuff History of shoulder surgery History of surgery Social History Household Members: None Housing: Apartment Alcohol intake: current Alcohol intake frequency: holidays/special occasions only Patient Tobacco Use Status: Never used Tobacco Second Hand Smoke Exposure: No Advance Directives: No Advance Directives Information Provided: Yes service: No Current occupational status: retired Cognitive needs: No Hearing needs: No Vision needs: Yes Meds Allergies Allergy/AdvReac Type Severity Reaction Status Date / Time aspirin [Aspirin] Allergy Severe STOMACH Verified 04/02/22 10:13 UPSET, stomach pain baclofen Allergy Severe dizziness Verified 04/02/22 10:13 oxycodone [Percocet] Allergy Severe itchiness Verified 04/02/22 10:13 Penicillins Allergy Severe ANAPHYLAXIS Verified 04/02/22 10:13 Active Medications: Current Medications Acetaminophen (Acetaminophen 325 Mg Tablet) 650 mg PO Q6H PRN PRN Reason: Pain, Mild (Pain Scale 1-3) Enoxaparin Sodium (Enoxaparin Sodium 40 Mg/0.4 Ml Syringe) 40 mg SUBCUT Q24H [facility] Sodium Chloride (Ns) 1,000 mls @ 999 mls/hr IV .Q1H1M [facility] Stop: 04/27/22 21:30 Last Admin: 04/27/22 20:50 Dose: 999 mls/hr Magnesium Sulfate/Dextrose (Magnesium Sulfate/D5w) 1 gm in 100 mls @ 100 mls/hr IV ONCE ONE Stop: 04/27/22 21:57 Morphine Sulfate (Morphine Sulfate 4 Mg/Ml Cartridge) 4 mg IVPUSH Q4H PRN; Protocol PRN Reason: Pain, Severe (Pain Scale 7-10) Ondansetron HCl (Ondansetron Hcl 4 Mg/2 Ml Vial) 4 mg IVPUSH Q8H PRN PRN Reason: Nausea and Vomiting Pharmacy Consult (Consult Rx Perform Med Rec) 1 each MISCELLANE ONCE PRN PRN Reason: Consult order Sodium Chloride (0.9 % Sodium Chloride Flush 3 Ml Syringe) 3 ml IVFLUSH QSHIFT [facility] Home Medications Medication Instructions Recorded Confirmed Last Taken Type memantine 10 mg tablet 10 mg PO BID 06/19/20 04/27/22 Unknown History furosemide 40 mg tablet 40 mg PO DAILY 10/27/20 04/27/22 Unknown History sennosides 8.6 mg tablet 17.2 mg PO DAILY PRN Constipation 01/20/21 04/27/22 Unknown History lorazepam 0.5 mg tablet 0.5 mg PO BEDTIME PRN Anxiety 02/23/21 04/27/22 Unknown History blood-glucose meter (FreeStyle 05/05/21 03/26/22 Unknown History Ciales Lite kit) escitalopram oxalate 20 mg tablet 20 mg PO DAILY 04/02/22 04/27/22 Unknown History dicyclomine 20 mg tablet 20 mg PO QID PRN Abdominal 04/27/22 04/27/22 Unknown History Discomfort insulin degludec 100 unit/mL (3 30 unit subcut BEDTIME 04/27/22 04/27/22 Unknown History mL) subcutaneous pen (Tresiba FlexTouch U-100 insulin) metformin 500 mg tablet,extended 500 mg PO BIDWM 04/27/22 04/27/22 Unknown History release 24hr plecanatide 3 mg tablet (Trulance) 3 mg PO DAILY 04/27/22 04/27/22 Unknown History tizanidine 2 mg tablet 2 mg PO BEDTIME PRN Muscle Spasm 04/27/22 04/27/22 Unknown History tramadol 50 mg tablet 1 tab PO Q6H PRN severe pain 04/27/22 04/27/22 Unknown History Physical Exam Vital Signs and Narrative: Vital Signs: Last Vital Signs Temp 98.4 F 04/27/22 18:51 Pulse 68 04/27/22 19:34 Resp 18 04/27/22 20:42 BP 118/44 L 04/27/22 19:34 Pulse Ox 94 04/27/22 19:34 O2 Del Method 04/27/22 19:34 BMI result Body Mass Index 31.6 Elderly female lying in bed in no distress Neck supple, no JVD Tachycardic with regular, S1-S2 heard Decreased breath sounds at bases, no wheezing or crackles appreciated Abdomen with epigastric tenderness on mild palpation, right upper quadrant tenderness, no guarding, no rigidity, no rebound tenderness Patient is awake, alert and oriented to self, place, time and person ; no focal motor deficit Psych: Normal mood No pedal edema Results Labs CBC and Chem 7: 04/27/22 18:11 04/27/22 18:11 Labs: Laboratory Results - last 24 hr 04/27/22 04/27/22 04/27/22 18:05 18:11 18:11 MCV 92.0 MCH 30.1 MCHC 32.7 RDW 12.6 Plt Count 244 MPV 10.6 Immature Gran % (Auto) 0.7 H Neut % (Auto) 55.7 Lymph % (Auto) 27.6 Woodward % (Auto) 8.3 Eos % (Auto) 7.0 H Baso % (Auto) 0.7 Lymph # (Auto) 2.8 Woodward # (Auto) 0.8 Eos # (Auto) 0.7 H Baso # (Auto) 0.1 Abs Immat Gran (auto) 0.07 H Absolute Neuts (auto) 5.6 Absolute Nucleated RBC 0.000 Nucleated RBC % (auto) 0.0 Anion Gap 17 Estim Creat Clear Calc 33.4 Estimated GFR 36 Random Glucose 307 H Lactic Acid 1.0 Calcium 9.4 Magnesium 1.4 L* Total Bilirubin 0.4 AST 17 ALT 12 Alkaline Phosphatase 85 Total Creatine Kinase Total Protein 7.2 Albumin 4.0 Triglycerides Lipase 657 H COVID-19 ([facility]) COVID-19 Clin Com 04/27/22 04/27/22 04/27/22 18:11 18:11 18:11 MCV MCH MCHC RDW Plt Count MPV Immature Gran % (Auto) Neut % (Auto) Lymph % (Auto) Woodward % (Auto) Eos % (Auto) Baso % (Auto) Lymph # (Auto) Woodward # (Auto) Eos # (Auto) Baso # (Auto) Abs Immat Gran (auto) Absolute Neuts (auto) Absolute Nucleated RBC Nucleated RBC % (auto) Anion Gap Estim Creat Clear Calc Estimated GFR Random Glucose Lactic Acid Calcium Magnesium Total Bilirubin AST ALT Alkaline Phosphatase Total Creatine Kinase 49 Total Protein Albumin Triglycerides 122 Lipase COVID-19 ([facility]) Negative COVID-19 Clin Com See Note Imaging Radiologist's Impressions: Impressions Abdomen/Pelvis CT 04/27/22 19:11 IMPRESSION: This exam is abnormal. The pancreatic head is enlarged with a low-density structure associated with it. Differential would include tumor versus possible sequela of pancreatitis. There is dilatation of the pancreatic duct but no intrahepatic ductal dilatation is seen. Recommend dynamic MRI/MRCP for full evaluation. Also noted here is a small low-density lesion in the right lobe of liver of uncertain etiology. Given the findings in the pancreas and small metastatic focus cannot be excluded. Fleischner guidelines were followed. 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: with care home use Diabetes mellitus complication status: with hyperglycemia Qualified Code(s): E11.65 - Type 2 diabetes mellitus with hyperglycemia; Z79.4 - alf (current) use of insulin Status: Acute (4) Insomnia: Qualifiers: Insomnia type: primary Qualified Code(s): F51.01 - Primary insomnia Status: Acute (5) Benign essential hypertension: Status: Acute (6) Dyslipidemia: Status: Acute (7) Anxiety: Status: Acute (8) Asthma: Qualifiers: Asthma severity: mild Asthma persistence: intermittent Asthma complication type: uncomplicated Qualified Code(s): J45.20 - Mild intermittent asthma, uncomplicated Status: Acute (9) Psoriatic arthritis: Status: Acute (10) NICM (nonischemic cardiomyopathy): Status: Acute Plan This is a 76 year old female with a pertinent history of insulin-dependent diabetes mellitus, generalized anxiety disorder, mixed hyperlipidemia, insomnia, nonischemic cardiomyopathy who presents to the emergency department for evaluation of epigastric pain. #. Acute pancreatitis, ?recurrent -recent admission at [facility] with ?similar presentation. Noted imaging with enlarged pancreatic head. Will obtain MRCP to further delineate the anatomy. Unclear etiology of questionable recurrent pancreatitis. No gallstones seen on CT scan, ultrasound pending. Patient denies significant alcohol use. Will obtain triglyceride. Will hold calcium supplementation. Will keep patient NPO for bowel rest and resuscitate with IV crystalloids. IV opiate p.r.n. for pain #. Acute kidney injury, prerenal due to intravascular volume depletion -dehydrated with IV crystalloids in the ER. Monitor urine output and creatinine. Hold Lasix and lisinopril #. Nonischemic cardiomyopathy -continue home medications, holding diuretic and ANNI inhibitor as above #. 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 Initiate Accu-Cheks and sliding scale insulin every 6 hours. Hold Home oral medications #. Hypomagnesemia -repleted #. Generalized anxiety disorder -continue home medications #. Mixed hyperlipidemia -on high-intensity statin and ezetimibe #. Asthma -continue home inhaler. No exacerbation at the time of her admission DVT prophylaxis: Lovenox 30 mg daily Diet: NPO Full code Patient will require two night minimum hospital stay for management and evaluation of acute pancreatitis. Quality Stroke Does the patient have a stroke diagnosis?: No VTE Prior VTE?: No VTE Risk Level:: Medical - moderate - high VTE Device Contraindication: Patient Refused VTE Drug Contraindication: N/A - Med Ordered
[2022-04-27] MEDS: Atorvastatin Calcium 80 MG TABLET PO (21:31)
[2022-04-27] MEDS: Enoxaparin Sodium 30 MG/0.3 ML SYRINGE SUBCUT (21:32)
[2022-04-27 21:40] LABS: Appearance Urine Clear; Color Urine Yellow; Glucose Urine UA Negative (Negative); Leukocyte Esterase Urine Negative (Negative); Nitrite Urine Negative (Negative); PH 5.5 (5.0-9.0); Specific Gravity - Urine >= 1.030 (1.005-1.025); Urine Blood Negative (Negative); Urine Ketones Negative (Negative); Urine Protein Negative (Neg-Trace)
[2022-04-27] MEDS: Memantine HCl 10 MG TABLET PO (21:52)
[2022-04-27] MEDS: carvediloL 12.5 MG TABLET PO (21:52)
[2022-04-27] MEDS: Gabapentin 300 MG CAPSULE PO (21:52)
[2022-04-27] MEDS: traZODone HCL 100 MG TABLET PO (21:52)
[2022-04-27 21:54] LABS: Triglycerides 132 mg/dL
[2022-04-27] MEDS: LORazepam 0.5 MG TABLET PO (23:04)
[2022-04-27] MEDS: 0.9 % Sodium Chloride Flush 3 ML SYRINGE IVFLUSH (23:07)
[2022-04-28] VITALS (9 sets, daily range): BP systolic 100–184; BP diastolic 42–84; PULSE 65–84; RESP 15–18; TEMP 36.1–37.2; O2SAT 91–98
--- NOTE | 2022-04-28 04:22 | PC.NURSE ---
Report given to NIXON Aleman RN.
[2022-04-28 04:51] LABS: MANUAL DIFF FLAG NO
[2022-04-28 04:53] LABS: Basophils Absolute Auto 0.1 X10*3/uL (0.0-0.2); Basophils Percent Auto 0.7 % (0-2); Eosinophils Absolute Auto 0.8 X10*3/uL (0.0-0.4); Hemoglobin 10.9 g/dl (12.0-16.0); Imm Gran Abs Auto 0.03 X10*3/uL (0.00-0.03); Imm Gran Pct Auto 0.3 % (0.0-0.4); Lymphocytes Absolute Auto 3.4 X10*3/uL (1.2-4.9); Lymphocytes Percent Auto 32.4 % (20-40); Mean Corpuscular HGB Conc 32.1 g/dl (31.0-35.0); Mean Corpuscular Hemoglobin 30.2 pg (27.0-33.0); Mean Corpuscular Volume 94.2 fL (80.0-98.0); Mean Platelet Volume 10.5 fL (9.4-12.3); Monocytes Percent Auto 9.3 % (2-11); Neutrophils Absolute Auto 5.1 x10*3/uL (2.0-8.3); Neutrophils Percent Auto 49.3 % (45-73); Platelet Count 224 X10*3/uL (160-400); Red Blood Count 3.61 X10*6/uL (4.20-5.50); Red Cell Distribution Width 12.5 % (11.0-16.0); White Blood Count 10.4 X10*3/uL (4.8-10.8)
[2022-04-28 05:10] LABS: Anion Gap 12 (12-20); Blood Urea Nitrogen 14 mg/dL (9-16); Calcium 8.8 mg/dL (8.4-10.2); Carbon Dioxide 26 mmol/L (22-29); Chloride 107 mmol/L (96-108); Creatinine Clr Calc Pharmacy 58.3; Estimated Glomerular Filt Rate > 60; Glucose Random 159 mg/dL (60-115); Potassium 4.2 mmol/L (3.3-5.1); Sodium 141 mmol/L (135-145)
[2022-04-28 05:13] LABS: Estimated Average Glucose 214 mg/dL; Hemoglobin A1c % 9.1 %
[2022-04-28] MEDS: Folic Acid 1 MG TABLET PO (09:20)
[2022-04-28] MEDS: Memantine HCl 10 MG TABLET PO ×2 (09:20→20:13)
[2022-04-28] MEDS: Ezetimibe 10 MG TABLET PO (09:20)
[2022-04-28] MEDS: Escitalopram Oxalate 20 MG TABLET PO (09:20)
[2022-04-28] MEDS: carvediloL 12.5 MG TABLET PO ×2 (09:21→20:13)
[2022-04-28] MEDS: Famotidine 20 MG TABLET 40 MG PO (09:21)
[2022-04-28] MEDS: 0.9 % Sodium Chloride Flush 3 ML SYRINGE IVFLUSH (09:25)
[2022-04-28 09:29] LABS: Glucose, Whole Blood 168 mg/dL (60-115)
[2022-04-28 12:16] LABS: Glucose, Whole Blood 178 mg/dL (60-115)
--- NOTE | 2022-04-28 12:19 | P.PNIM_ITS ---
Subjective Subjective Date of Service: 04/28/22 Interval History: Complaining of persistent epigastric discomfort, worse after eating has ongoing symptoms for last several months was discharged from [facility] 3 weeks ago unaware of her diagnosis, denies associated fever chills , does complain of intermittent nausea and decreased poor intake denies alcohol abuse denies shortness of breath, patient is NPO for possible MRCP. Review of Systems Review of Systems: Yes all other systems are reviewed and are negative Physical Exam Vital Signs: Vital Signs: Last Vital Signs Temp 98.2 F 04/28/22 08:00 Pulse 66 04/28/22 08:00 Resp 17 04/28/22 08:00 BP 125/68 04/28/22 08:00 Pulse Ox 98 04/28/22 08:00 O2 Del Method 04/28/22 08:00 O2 Flow Rate 2 04/28/22 08:00 BMI result Body Mass Index 31.6 Const: Other: General awake alert x3 no acute distress Anicteric sclera Neck supple, no JVD CVS regular rate rhythm Lungs Decreased breath sounds at bases, no wheezing , no use of accessory muscles Abdomen epigastric tenderness on mild palpation, bowel sounds audible no guarding, no rigidity, no rebound tenderness Psych: Normal mood Extremities no edema Psych appropriate affect Objective Data Active Medications Acetaminophen (Acetaminophen 325 Mg Tablet) 650 mg PO Q6H PRN PRN Reason: Pain, Mild (Pain Scale 1-3) Albuterol Sulfate (Albuterol Sulfate 90 Mcg 8 Gm Inhaler) 2 puff INHALE Q6H PRN PRN Reason: Shortness Of Breath Atorvastatin Calcium (Atorvastatin Calcium 80 Mg Tablet) 80 mg PO BEDTIME [facility] Last Admin: 04/27/22 21:31 Dose: 80 mg Documented By: NICHOLE Carvedilol (Carvedilol 12.5 Mg Tablet) 12.5 mg PO BID [facility]; Protocol Last Admin: 04/28/22 09:21 Dose: 12.5 mg Documented By: CARLOS Dextrose (Dextrose 50 % 25 Gm/50 Ml Syringe) 25 gm IVPUSH Q15M PRN; Protocol PRN Reason: per Hypoglycemia Standing Ord. Dicyclomine HCl (Dicyclomine Hcl 10 Mg Capsule) 20 mg PO QID PRN PRN Reason: Abdominal Discomfort Ezetimibe (Ezetimibe 10 Mg Tablet) 10 mg PO DAILY [facility] Last Admin: 04/28/22 09:20 Dose: 10 mg Documented By: CARLOS Enoxaparin Sodium (Enoxaparin Sodium 40 Mg/0.4 Ml Syringe) 40 mg SUBCUT Q24H [facility] Escitalopram Oxalate (Escitalopram Oxalate 20 Mg Tablet) 20 mg PO DAILY [facility] Last Admin: 04/28/22 09:20 Dose: 20 mg Documented By: CARLOS Famotidine (Famotidine 20 Mg Tablet) 40 mg PO DAILY [facility] Last Admin: 04/28/22 09:21 Dose: 40 mg Documented By: CARLOS Fluticasone Propionate (Fluticasone Propionate Nasal 16 Gm [place]) 2 spray NOSTRIL-B DAILY PRN PRN Reason: allergy symptoms Fluticasone/Vilanterol (Fluticasone/Vilanterol 100/25 Blst.W.Dev) 1 puff INHALE DAILY [facility] Last Admin: 04/28/22 08:03 Dose: Not Given Documented By: SOBIA Non-Admin Reason: Med Not Available Folic Acid (Folic Acid 1 Mg Tablet) 1 mg PO DAILY [facility] Last Admin: 04/28/22 09:20 Dose: 1 mg Documented By: CARLOS Gabapentin (Gabapentin 300 Mg Capsule) 300 mg PO BEDTIME [facility] Last Admin: 04/27/22 21:52 Dose: 300 mg Documented By: NICHOLE Glucose (Glucose Gel 15 Gm Gel..Gram.) 15 gm PO Q15M PRN; Protocol PRN Reason: per Hypoglycemia Standing Ord. Glucose (Glucose Gel 15 Gm Gel..Gram.) 15 gm PO Q15M PRN; Protocol PRN Reason: per Hypoglycemia Standing Ord. Insulin Human Lispro (Insulin Lispro 100 Unit/Ml 3 Ml Vial) 0 unit SUBCUT QIDACHS [facility]; Protocol Lorazepam (Lorazepam 0.5 Mg Tablet) 0.5 mg PO BEDTIME PRN PRN Reason: Anxiety Last Admin: 04/27/22 23:04 Dose: 0.5 mg Documented By: NICHOLE Memantine (Memantine Hcl 10 Mg Tablet) 10 mg PO BID [facility] Last Admin: 04/28/22 09:20 Dose: 10 mg Documented By: CARLOS Morphine Sulfate (Morphine Sulfate 4 Mg/Ml Cartridge) 4 mg IVPUSH Q4H PRN; Protocol PRN Reason: Pain, Severe (Pain Scale 7-10) Non-Formulary Medication (Insulin Degludec [Tresiba Flextouch U-100]) 15 unit SUBCUT BEDTIME [facility] Non-Formulary Medication (Ivabradine [Corlanor]) 5 mg PO DAILY [facility] Non-Formulary Medication (Plecanatide [Trulance]) 3 mg PO DAILY [facility] Ondansetron HCl (Ondansetron Hcl 4 Mg/2 Ml Vial) 4 mg IVPUSH Q8H PRN PRN Reason: Nausea and Vomiting Pharmacy Consult (Consult Rx Perform Med Rec) 1 each MISCELLANE ONCE PRN PRN Reason: Consult order Sodium Chloride (0.9 % Sodium Chloride Flush 3 Ml Syringe) 3 ml IVFLUSH QSHIFT [facility] Last Admin: 04/28/22 09:25 Dose: 3 ml Documented By: CARLOS Tizanidine HCl (Tizanidine Hcl 4 Mg Tablet) 2 mg PO BEDTIME PRN PRN Reason: Muscle Spasm Trazodone HCl (Trazodone Hcl 100 Mg Tablet) 100 mg PO BEDTIME [facility] Last Admin: 04/27/22 21:52 Dose: 100 mg Documented By: NICHOLE Labs CBC & Chem 7: 04/28/22 04:30 04/28/22 04:30 Labs: Laboratory Results - last 24 hr 04/27/22 04/27/22 04/27/22 18:05 18:11 18:11 MCV 92.0 MCH 30.1 MCHC 32.7 RDW 12.6 Plt Count 244 MPV 10.6 Immature Gran % (Auto) 0.7 H Neut % (Auto) 55.7 Lymph % (Auto) 27.6 [place] % (Auto) 8.3 Eos % (Auto) 7.0 H Baso % (Auto) 0.7 Lymph # (Auto) 2.8 [place] # (Auto) 0.8 Eos # (Auto) 0.7 H Baso # (Auto) 0.1 Abs Immat Gran (auto) 0.07 H Absolute Neuts (auto) 5.6 Absolute Nucleated RBC 0.000 Nucleated RBC % (auto) 0.0 Anion Gap 17 Estim Creat Clear Calc 33.4 Estimated GFR 36 POC Glucose Random Glucose 307 H Estimat Average Glucose Hemoglobin A1c % Lactic Acid 1.0 Calcium 9.4 Magnesium 1.4 L* Total Bilirubin 0.4 AST 17 ALT 12 Alkaline Phosphatase 85 Total Creatine Kinase Total Protein 7.2 Albumin 4.0 Triglycerides Lipase 657 H Urine Color Urine Appearance Urine pH Ur Specific [place] Urine Protein Urine Glucose (UA) Urine Ketones Urine Blood Urine Nitrite Ur Leukocyte Esterase COVID-19 (MARCELO) COVID-19 Clin Com 04/27/22 04/27/22 04/27/22 18:11 18:11 18:11 MCV MCH MCHC RDW Plt Count MPV Immature Gran % (Auto) Neut % (Auto) Lymph % (Auto) [place] % (Auto) Eos % (Auto) Baso % (Auto) Lymph # (Auto) [place] # (Auto) Eos # (Auto) Baso # (Auto) Abs Immat Gran (auto) Absolute Neuts (auto) Absolute Nucleated RBC Nucleated RBC % (auto) Anion Gap Estim Creat Clear Calc Estimated GFR POC Glucose Random Glucose Estimat Average Glucose Hemoglobin A1c % Lactic Acid Calcium Magnesium Total Bilirubin AST ALT Alkaline Phosphatase Total Creatine Kinase 49 Total Protein Albumin Triglycerides 122 Lipase Urine Color Urine Appearance Urine pH Ur Specific [place] Urine Protein Urine Glucose (UA) Urine Ketones Urine Blood Urine Nitrite Ur Leukocyte Esterase COVID-19 (MARCELO) Negative COVID-19 Clin Com See Note 04/27/22 04/27/22 04/27/22 21:27 21:34 21:34 MCV MCH MCHC RDW Plt Count MPV Immature Gran % (Auto) Neut % (Auto) Lymph % (Auto) [place] % (Auto) Eos % (Auto) Baso % (Auto) Lymph # (Auto) [place] # (Auto) Eos # (Auto) Baso # (Auto) Abs Immat Gran (auto) Absolute Neuts (auto) Absolute Nucleated RBC Nucleated RBC % (auto) Anion Gap Estim Creat Clear Calc Estimated GFR POC Glucose Random Glucose Estimat Average Glucose 214 Hemoglobin A1c % 9.1 Lactic Acid Calcium Magnesium Total Bilirubin AST ALT Alkaline Phosphatase Total Creatine Kinase Total Protein Albumin Triglycerides 132 Lipase Urine Color Yellow Urine Appearance Clear Urine pH 5.5 Ur Specific [place] >= 1.030 H Urine Protein Negative Urine Glucose (UA) Negative Urine Ketones Negative Urine Blood Negative Urine Nitrite Negative Ur Leukocyte Esterase Negative COVID-19 (MARCELO) COVID-19 Clin Com 04/28/22 04/28/22 04/28/22 04:30 04:30 09:25 MCV 94.2 MCH 30.2 MCHC 32.1 RDW 12.5 Plt Count 224 MPV 10.5 Immature Gran % (Auto) 0.3 Neut % (Auto) 49.3 Lymph % (Auto) 32.4 [place] % (Auto) 9.3 Eos % (Auto) 8.0 H Baso % (Auto) 0.7 Lymph # (Auto) 3.4 [place] # (Auto) 1.0 Eos # (Auto) 0.8 H Baso # (Auto) 0.1 Abs Immat Gran (auto) 0.03 Absolute Neuts (auto) 5.1 Absolute Nucleated RBC 0.000 Nucleated RBC % (auto) 0.0 Anion Gap 12 Estim Creat Clear Calc 58.3 Estimated GFR > 60 POC Glucose 168 H Random Glucose 159 H Estimat Average Glucose Hemoglobin A1c % Lactic Acid Calcium 8.8 D Magnesium 2.0 Total Bilirubin AST ALT Alkaline Phosphatase Total Creatine Kinase Total Protein Albumin Triglycerides Lipase Urine Color Urine Appearance Urine pH Ur Specific [place] Urine Protein Urine Glucose (UA) Urine Ketones Urine Blood Urine Nitrite Ur Leukocyte Esterase COVID-19 (MARCELO) COVID-[employer] 04/28/22 12:12 MCV MCH MCHC RDW Plt Count MPV Immature Gran % (Auto) Neut % (Auto) Lymph % (Auto) [place] % (Auto) Eos % (Auto) Baso % (Auto) Lymph # (Auto) [place] # (Auto) Eos # (Auto) Baso # (Auto) Abs Immat Gran (auto) Absolute Neuts (auto) Absolute Nucleated RBC Nucleated RBC % (auto) Anion Gap Estim Creat Clear Calc Estimated GFR POC Glucose 178 H Random Glucose Estimat Average Glucose Hemoglobin A1c % Lactic Acid Calcium Magnesium Total Bilirubin AST ALT Alkaline Phosphatase Total Creatine Kinase Total Protein Albumin Triglycerides Lipase Urine Color Urine Appearance Urine pH Ur Specific [place] Urine Protein Urine Glucose (UA) Urine Ketones Urine Blood Urine Nitrite Ur Leukocyte Esterase COVID-19 (MARCELO) COVID-19 Fan[facility] Assessment and Plan (1) Abdominal pain: Status: Acute (2) SHABANA (acute kidney injury): Status: Acute (3) T2DM (type 2 diabetes mellitus): Status: Acute (4) HLD (hyperlipidemia): Status: Acute Plan 76 year old female with a pertinent history of insulin-dependent diabetes mellitus, generalized anxiety disorder, mixed hyperlipidemia, insomnia, nonischemic cardiomyopathy who presents to the emergency department for evaluation of epigastric pain. #. Acute pancreatitis, ?recurrent Persistent epigastric pain as per patient symptoms going on full several months recently discharged from [facility] 3 months ago patient not aware of her diagnosis Abdominal ultrasound and CT consistent with pancreatic cysts and ductal dilatation Elevated lipase, normal LFTs no history of alcohol abuse, normal triglyceride level, on lisinopril held on admission, CT abdomen and abdominal ultrasound showed normal-appearing liver and intra and extrahepatic ducts MRCP ordered Obtain GI consult and old records from [facility], need further workup for autoimmune pancreatitis Continue IV fluids, analgesics and clear liquids #.? Acute kidney injury, prerenal due to intravascular volume depletion -resolved with IV fluid continue to hold Lasix and lisinopril, continue IV fluid #.? Nonischemic cardiomyopathy -continue Coreg, Zetia, Lipitor, Corlanor is non formulary, will hold lisinopril and Lasix #.? 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 Hypomagnesemia -repleted, repeat magnesium 2 #.? Generalized anxiety disorder -continue home medications #.? Mixed hyperlipidemia -on high-intensity statin and ezetimibe #. Mild persistent? Asthma -continue home inhaler.? No exacerbation # constipation trulance is non formulary DVT prophylaxis: Lovenox Full code Patient will need continued inpatient hospitalization for further workup and evaluation of acute pancreatitis.? Quality Stroke Does the patient have a stroke diagnosis?: No VTE Prior VTE?: No VTE Risk Level:: Medical - moderate - high VTE Device Contraindication: Patient Refused VTE Drug Contraindication: N/A - Med Ordered
--- NOTE | 2022-04-28 12:23 | MHC.CM.PN ---
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 USES WHEELED WALKER. PT UNSURE IF HAS A VNA. MARY ALICE FROM [facility] CONFIRMS HAS DRAPERY SEWER HAND FROM [facility] BUT NO VNA . PT OPEN TO VNA REFERRAL IF NEEDED ON DC, HAS NO PREFERENCE. REFERRAL TO [facility] SENT. NO HCP LISTED AND DECLINED TO COMPLETE ONE AT THIS TIME. COVID VAX X 3. PCP DR. KHAN AT [facility] – [place], [place]. DAUGHTER WILL TRANSPORT HOME AT [place].
[2022-04-28] MEDS: 0.9 % Sodium Chloride 1,000 ML 50 ML IVCONT (12:54)
--- NOTE | 2022-04-28 15:06 | PM.EVENT ---
Event Note Date of Service: 04/28/22 Event Note: GI consult dictated CT and US findings could be due to recent episode of acute pancreatitis in [place]. MRI done in [place] was limited and should be repeated when pancreatitis has resolved in about 10-12 weeks.
[2022-04-28 15:55] LABS: Glucose, Whole Blood 277 mg/dL (60-115)
[2022-04-28] MEDS: Morphine Sulfate 4 MG/ML CARTRIDGE IVPUSH ×2 (16:03→23:05)
[2022-04-28] MEDS: Insulin Lispro 100 UNIT/ML 3 ML VIAL SUBCUT (16:03)
[2022-04-28 19:40] LABS: Glucose, Whole Blood 117 mg/dL (60-115)
[2022-04-28] MEDS: Enoxaparin Sodium 40 MG/0.4 ML SYRINGE SUBCUT (20:13)
[2022-04-28] MEDS: Atorvastatin Calcium 80 MG TABLET PO (20:13)
[2022-04-28] MEDS: Gabapentin 300 MG CAPSULE PO (20:13)
[2022-04-28] MEDS: traZODone HCL 100 MG TABLET PO (20:15)
[2022-04-28] MEDS: oxyCODONE HCl Immed Release 5 MG TABLET PO (20:17)
[2022-04-29] VITALS (7 sets, daily range): BP systolic 119–188; BP diastolic 60–88; PULSE 71–84; RESP 16–19; TEMP 36.4–37.7; O2SAT 90–95
--- NOTE | 2022-04-29 03:37 | CONS_ITS ---
DATE OF SERVICE: 04/28/2022 REFERRING PHYSICIAN: Kandy Ceballos MD REASON FOR CONSULTATION: Abnormal CT scan of the pancreas and abdominal pain. HISTORY OF PRESENT ILLNESS: The patient is a pleasant 76-year-old woman, who was admitted to the hospital after presenting to the emergency room yesterday with complaints of abdominal pain. She was recently hospitalized from April 17 through April 20 in [place] where she presented with a lipase of 1500 with changes of pancreatitis on CT scan and a hypodense cystic structure in the pancreatic head. There was also mildly dilated pancreatic duct. MRCP was ordered and done, but was limited due to motion and did not show any definite mass. Followup was recommended after resolution of her pancreatitis to determine whether the cystic lesion is an IPMN or pancreatic pseudocyst. The patient states she was discharged and had persistent abdominal pain. Therefore, she presented to the emergency room. The pain was worsened with eating and present in the epigastric area. There was nausea and one episode of nonbloody emesis. She believes she has lost unquantified amounts of weight because of her discomfort with eating. Evaluation here included laboratory studies documenting an elevation of her lipase at 657. CT scanning was obtained, which was reviewed. This was interpreted as showing enlargement of the pancreatic head with a low-density structure within it. Ultrasound imaging was obtained, which was interpreted as showing a hypoechoic mass in the head of the pancreas measuring 4.7 x 3.5 x 3.6 cm with dilation of the main pancreatic duct. MRI imaging has been ordered. PAST MEDICAL HISTORY: 1. Hypertension. 2. Hyperlipidemia. 3. Hyperparathyroidism. 4. Diabetes. 5. Chronic kidney disease. 6. Cardiomyopathy with history of ICD placement. 7. Obstructive sleep apnea. 8. Gastroesophageal reflux disease. 9. Dementia. 10. Chronic constipation. 11. Anxiety. 12. Urinary tract infections. 13. Vitamin D deficiency. 14. EGD/colonoscopy, 02/06/2016. No H. pylori or Burgos's esophagus. Diverticulosis seen on colonoscopy. CURRENT MEDICATIONS: Her current medication list is reviewed in the chart. ALLERGIES: MULTIPLE MEDICATION ALLERGIES ARE REVIEWED. FAMILY HISTORY: This is reviewed in the electronic medical record and is noncontributory. SOCIAL HISTORY: There is no current tobacco, alcohol, or substance abuse. REVIEW OF SYSTEMS: SKIN: No pruritus. HEENT: Negative. CARDIOPULMONARY: She denies shortness of breath or chest pain. GASTROINTESTINAL: As above. GENITOURINARY: Negative. NEUROPSYCHIATRIC: Negative. PHYSICAL EXAMINATION: GENERAL: Shows a pleasant female, lying comfortably in bed. VITAL SIGNS: Reviewed in electronic medical record and are stable. SKIN: Anicteric. HEENT: Shows no scleral icterus. NECK: Without lymphadenopathy or thyromegaly. LUNGS: Clear. HEART: Shows regular rate and rhythm. S1 and S2. No murmur. ABDOMEN: Soft without focal masses or tenderness. Bowel sounds are present. No organomegaly is noted. EXTREMITIES: Without edema. LABORATORY DATA: Reviewed. IMPRESSION: Abdominal pain with elevated lipase and abnormal CT scan and ultrasound, question of pancreatic head lesion. At this time, I would recommend treating her for pancreatitis as she does have an elevated lipase and abdominal pain. Her CT scan findings may represent pancreatitis that is resolving based on her changes from her previous imaging. Her limited MRI at the other facility should be repeated at some point to get the most useful information that should be done when her acute pancreatitis has resolved as it will be difficult to determine whether this is a definite mass lesion versus resolving changes from pancreatitis. As her pancreatitis improves, her diet can be advanced. Thanks for asking me to see her. I will follow her in the hospital with you. MD JAX Asher/ADALID / [id number]
[2022-04-29 06:44] LABS: Mean Corpuscular HGB Conc 32.3 g/dl (31.0-35.0); Mean Corpuscular Hemoglobin 30.7 pg (27.0-33.0); Mean Corpuscular Volume 95.1 fL (80.0-98.0); Mean Platelet Volume 10.8 fL (9.4-12.3); Platelet Count 212 X10*3/uL (160-400); Red Blood Count 3.26 X10*6/uL (4.20-5.50); Red Cell Distribution Width 12.4 % (11.0-16.0)
[2022-04-29 07:05] LABS: Anion Gap 13 (12-20); Blood Urea Nitrogen 6 mg/dL (9-16); Carbon Dioxide 28 mmol/L (22-29); Chloride 104 mmol/L (96-108); Creatinine Clr Calc Pharmacy 66.5; Estimated Glomerular Filt Rate > 60; Glucose Random 183 mg/dL (60-115); Lipase 398 U/L (8-78); Potassium 4.4 mmol/L (3.3-5.1); Sodium 141 mmol/L (135-145)
[2022-04-29 07:30] LABS: Glucose, Whole Blood 193 mg/dL (60-115)
[2022-04-29] MEDS: Fluticasone/Vilanterol 100/25 BLST.W.DEV 1 PUFF INHALE (07:58)
[2022-04-29] MEDS: Escitalopram Oxalate 20 MG TABLET PO (10:04)
[2022-04-29] MEDS: Famotidine 20 MG TABLET 40 MG PO (10:04)
[2022-04-29] MEDS: Memantine HCl 10 MG TABLET PO ×2 (10:04→21:23)
[2022-04-29] MEDS: Folic Acid 1 MG TABLET PO (10:04)
[2022-04-29] MEDS: Ezetimibe 10 MG TABLET PO (10:04)
[2022-04-29] MEDS: carvediloL 12.5 MG TABLET PO ×2 (10:04→21:23)
[2022-04-29 11:10] LABS: Glucose, Whole Blood 277 mg/dL (60-115)
[2022-04-29] MEDS: Insulin Lispro 100 UNIT/ML 3 ML VIAL SUBCUT ×3 (11:46→21:22)
--- NOTE | 2022-04-29 15:36 | HO.PM.IMPN ---
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 Review of Systems [employer] no headache no dizziness CVS no chest pain, no palpitation no urgency, no frequency Review of Systems: Yes all other systems are reviewed and are negative Physical Exam Vital Signs: Vital Signs: Last Vital Signs Temp 98.2 F 04/29/22 10:52 Pulse 84 04/29/22 10:52 Resp 18 04/29/22 10:52 BP 135/62 04/29/22 10:52 Pulse Ox 95 04/29/22 10:52 O2 Del Method 04/29/22 10:52 O2 Flow Rate 2 04/28/22 08:00 BMI result Body Mass Index 31.6 Const: Other: General awake alert x3 no acute distress Anicteric sclera Neck supple, no JVD CVS regular rate rhythm Lungs clear to auscultation, no wheezing , no use of accessory muscles Abdomen? epigastric tenderness on mild palpation, bowel sounds audible? no guarding, no rigidity, no rebound tenderness Psych: Normal mood Extremities no edema Psych appropriate affect Objective Data Active Medications Acetaminophen (Acetaminophen 325 Mg Tablet) 650 mg PO Q6H PRN PRN Reason: Pain, Mild (Pain Scale 1-3) Albuterol Sulfate (Albuterol Sulfate 90 Mcg 8 Gm Inhaler) 2 puff INHALE Q6H PRN PRN Reason: Shortness Of Breath Atorvastatin Calcium (Atorvastatin Calcium 80 Mg Tablet) 80 mg PO BEDTIME [facility] Last Admin: 04/28/22 20:13 Dose: 80 mg Documented By: JONI Carvedilol (Carvedilol 12.5 Mg Tablet) 12.5 mg PO BID [facility]; Protocol Last Admin: 04/29/22 10:04 Dose: 12.5 mg Documented By: CELIA Dextrose (Dextrose 50 % 25 Gm/50 Ml Syringe) 25 gm IVPUSH Q15M PRN; Protocol PRN Reason: per Hypoglycemia Standing Ord. Dextrose (Dextrose 50 % 25 Gm/50 Ml Syringe) 25 gm IVPUSH Q15M PRN; Protocol PRN Reason: per Hypoglycemia Standing Ord. Dicyclomine HCl (Dicyclomine Hcl 10 Mg Capsule) 20 mg PO QID PRN PRN Reason: Abdominal Discomfort Ezetimibe (Ezetimibe 10 Mg Tablet) 10 mg PO DAILY [facility] Last Admin: 04/29/22 10:04 Dose: 10 mg Documented By: CELIA Enoxaparin Sodium (Enoxaparin Sodium 40 Mg/0.4 Ml Syringe) 40 mg SUBCUT Q24H [facility] Last Admin: 04/28/22 20:13 Dose: 40 mg Documented By: JONI Escitalopram Oxalate (Escitalopram Oxalate 20 Mg Tablet) 20 mg PO DAILY [facility] Last Admin: 04/29/22 10:04 Dose: 20 mg Documented By: CELIA Famotidine (Famotidine 20 Mg Tablet) 40 mg PO DAILY [facility] Last Admin: 04/29/22 10:04 Dose: 40 mg Documented By: CELIA Fluticasone Propionate (Fluticasone Propionate Nasal 16 Gm [place]) 2 spray NOSTRIL-B DAILY PRN PRN Reason: allergy symptoms Fluticasone/Vilanterol (Fluticasone/Vilanterol 100/25 Blst.W.Dev) 1 puff INHALE DAILY [facility] Last Admin: 04/29/22 07:58 Dose: 1 puff Documented By: LAURA Folic Acid (Folic Acid 1 Mg Tablet) 1 mg PO DAILY [facility] Last Admin: 04/29/22 10:04 Dose: 1 mg Documented By: CELIA Gabapentin (Gabapentin 300 Mg Capsule) 300 mg PO BEDTIME [facility] Last Admin: 04/28/22 20:13 Dose: 300 mg Documented By: JONI Glucose (Glucose Gel 15 Gm Gel..Gram.) 15 gm PO Q15M PRN; Protocol PRN Reason: per Hypoglycemia Standing Ord. Glucose (Glucose Gel 15 Gm Gel..Gram.) 15 gm PO Q15M PRN; Protocol PRN Reason: per Hypoglycemia Standing Ord. Sodium Chloride (Ns) 1,000 mls @ 50 mls/hr IVCONT .Q20H [facility] Last Admin: 04/29/22 09:59 Dose: Not Given Documented By: CELIA Non-Admin Reason: IV Running Insulin Glargine (Insulin Glargine,Hum.Rec.Anlog 100 Unit/Ml 10 Ml Vial) 10 unit SUBCUT BEDTIME [facility] Insulin Human Lispro (Insulin Lispro 100 Unit/Ml 3 Ml Vial) 0 unit SUBCUT QIDACHS [facility]; Protocol Last Admin: 04/29/22 11:46 Dose: 6 unit Documented By: CELIA Lorazepam (Lorazepam 0.5 Mg Tablet) 0.5 mg PO BEDTIME PRN PRN Reason: Anxiety Last Admin: 04/27/22 23:04 Dose: 0.5 mg Documented By: IRINAKAREN Memantine (Memantine Hcl 10 Mg Tablet) 10 mg PO BID [facility] Last Admin: 04/29/22 10:04 Dose: 10 mg Documented By: CELIA Morphine Sulfate (Morphine Sulfate 4 Mg/Ml Cartridge) 4 mg IVPUSH Q4H PRN; Protocol PRN Reason: Pain, Severe (Pain Scale 7-10) Last Admin: 04/28/22 23:05 Dose: 4 mg Documented By: JONI Non-Formulary Medication (Ivabradine [Corlanor]) 5 mg PO DAILY [facility] Ondansetron HCl (Ondansetron Hcl 4 Mg/2 Ml Vial) 4 mg IVPUSH Q8H PRN PRN Reason: Nausea and Vomiting Oxycodone HCl (Oxycodone Hcl Immed Release 5 Mg Tablet) 5 mg PO Q6H PRN PRN Reason: Pain, Moderate (Pain Scale 4-6 Last Admin: 04/28/22 20:17 Dose: 5 mg Documented By: JONI Pharmacy Consult (Consult Rx Perform Med Rec) 1 each MISCELLANE ONCE PRN PRN Reason: Consult order Sodium Chloride (0.9 % Sodium Chloride Flush 3 Ml Syringe) 3 ml IVFLUSH QSHIFT [facility] Last Admin: 04/29/22 08:51 Dose: Not Given Documented By: CELIA Non-Admin Reason: IV Running Tizanidine HCl (Tizanidine Hcl 4 Mg Tablet) 2 mg PO BEDTIME PRN PRN Reason: Muscle Spasm Trazodone HCl (Trazodone Hcl 100 Mg Tablet) 100 mg PO BEDTIME [facility] Last Admin: 04/28/22 20:15 Dose: 100 mg Documented By: JONI Labs CBC & Chem 7: 04/29/22 06:06 04/29/22 06:06 Labs: Laboratory Results - last 24 hr 04/28/22 04/28/22 04/29/22 15:52 19:35 06:06 MCV MCH MCHC RDW Plt Count MPV Absolute Nucleated RBC Nucleated RBC % (auto) Anion Gap 13 Estim Creat Clear Calc 66.5 Estimated GFR > 60 POC Glucose 277 H 117 H Random Glucose 183 H Calcium 9.0 Lipase 398 H 04/29/22 04/29/22 04/29/22 06:06 07:15 10:56 MCV 95.1 MCH 30.7 MCHC 32.3 RDW 12.4 Plt Count 212 MPV 10.8 Absolute Nucleated RBC 0.000 Nucleated RBC % (auto) 0.0 Anion Gap Estim Creat Clear Calc Estimated GFR POC Glucose 193 H 277 H Random Glucose Calcium Lipase Microbiology Microbiology Results: Microbiology 04/27/22 18:11 Blood Culture - Preliminary Blood - Venous No growth after 24 hours. 04/27/22 17:53 Blood Culture - Preliminary Blood - Venous No growth after 24 hours. Assessment and Plan (1) Acute pancreatitis: Status: Acute Plan 76 year old female with a pertinent history of insulin-dependent diabetes mellitus, generalized anxiety disorder, mixed hyperlipidemia, insomnia, nonischemic cardiomyopathy who presents to the emergency department for evaluation of epigastric pain. #. Acute pancreatitis, Persistent epigastric pain with decreased by mouth intake Reviewed records from [facility] patient was discharged on April 20 from [facility] with a diagnosis of acute pancreatitis and was recommended MRCP in approximately 4 weeks once pancreatitis has resolved since MRCP at [facility] showed an ill-defined 1.2 cm lesion limited by motion artifact pancreatic neck, body and tail showed some mild duct dilatation no stones were noted Abdominal ultrasound and CT consistent with pancreatic cysts and ductal dilatation, it showed normal-appearing liver and intra and extrahepatic ducts not dilated ? Lipase trending down, normal LFTs no history of alcohol abuse, normal triglyceride level, on lisinopril can cause pancreatitis held on admission, CT abdomen and abdominal ultrasound showed normal-appearing liver and intra and extrahepatic ducts ? Patient seen by Dr. Noguera he agrees with current treatment for acute pancreatitis with analgesics, IV fluids will advance diet to full and advance as tolerated Stable electrolytes renal function and CBC, lipase improved to 398 from 657, at [facility] lipase was 1500 #.? Acute kidney injury, prerenal due to intravascular volume depletion -resolved with IV fluid continue to hold Lasix and lisinopril, continue IV fluid #.? Nonischemic cardiomyopathy -continue Coreg, Zetia, Lipitor, Corlanor is non formulary, will hold lisinopril and Lasix #.? 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 Hypomagnesemia -repleted, repeat magnesium 2 #.? Generalized anxiety disorder -continue home medications #.? Mixed hyperlipidemia -on high-intensity statin and ezetimibe #.? Mild persistent? Asthma -continue home inhaler.? No exacerbation # constipation trulance is non formulary DVT prophylaxis: Lovenox Full code Patient will need continued inpatient hospitalization for further workup and evaluation of acute pancreatitis.? Quality Stroke Does the patient have a stroke diagnosis?: No VTE Prior VTE?: No VTE Risk Level:: Medical - moderate - high VTE Device Contraindication: Patient Refused VTE Drug Contraindication: N/A - Med Ordered
[2022-04-29 16:11] LABS: Glucose, Whole Blood 256 mg/dL (60-115)
[2022-04-29] MEDS: 0.9 % Sodium Chloride Flush 3 ML SYRINGE IVFLUSH (17:22)
[2022-04-29] MEDS: amLODIPine Besylate 5 MG TABLET PO (17:22)
[2022-04-29 20:15] LABS: Glucose, Whole Blood 274 mg/dL (60-115)
[2022-04-29] MEDS: Insulin Glargine,Hum.rec.anlog 100 UNIT/ML 10 ML VIAL 10 UNIT SUBCUT (21:22)
[2022-04-29] MEDS: Gabapentin 300 MG CAPSULE PO (21:23)
[2022-04-29] MEDS: traZODone HCL 100 MG TABLET PO (21:23)
[2022-04-29] MEDS: Enoxaparin Sodium 40 MG/0.4 ML SYRINGE SUBCUT (21:23)
[2022-04-29] MEDS: Atorvastatin Calcium 80 MG TABLET PO (21:23)
[2022-04-29] MEDS: Dicyclomine HCl 10 MG CAPSULE 20 MG PO (21:27)
[2022-04-30 03:10] VITALS: BP 128/71; PULSE 81; RESP 14; TEMP 36.9; O2SAT 95
[2022-04-30] MEDS: oxyCODONE HCl Immed Release 5 MG TABLET PO (05:34)
[2022-04-30 07:08] VITALS: BP 146/68; PULSE 75; RESP 20; TEMP 36.4; O2SAT 94
[2022-04-30 07:19] LABS: Glucose, Whole Blood 194 mg/dL (60-115)
[2022-04-30] MEDS: Insulin Lispro 100 UNIT/ML 3 ML VIAL SUBCUT ×2 (07:30→11:37)
[2022-04-30] MEDS: 0.9 % Sodium Chloride Flush 3 ML SYRINGE IVFLUSH (07:30)
[2022-04-30] MEDS: Escitalopram Oxalate 20 MG TABLET PO (07:31)
[2022-04-30] MEDS: carvediloL 12.5 MG TABLET PO (07:31)
[2022-04-30] MEDS: Ezetimibe 10 MG TABLET PO (07:31)
[2022-04-30] MEDS: Famotidine 20 MG TABLET 40 MG PO (07:31)
[2022-04-30] MEDS: Folic Acid 1 MG TABLET PO (07:31)
[2022-04-30] MEDS: Memantine HCl 10 MG TABLET PO (07:32)
[2022-04-30] MEDS: amLODIPine Besylate 5 MG TABLET PO (07:32)
[2022-04-30 10:03] LABS: Anion Gap 16 (12-20); Blood Urea Nitrogen 5 mg/dL (9-16); Carbon Dioxide 27 mmol/L (22-29); Chloride 101 mmol/L (96-108); Creatinine Clr Calc Pharmacy 62.1; Estimated Glomerular Filt Rate > 60; Glucose Random 213 mg/dL (60-115); Lipase 811 U/L (8-78); Potassium 3.7 mmol/L (3.3-5.1); Sodium 140 mmol/L (135-145)
[2022-04-30 10:11] LABS: Calcium 9.8 mg/dL (8.4-10.2)
[2022-04-30 11:11] VITALS: BP 126/65; PULSE 82; RESP 20; TEMP 36.8; O2SAT 95
[2022-04-30 11:23] LABS: Glucose, Whole Blood 362 mg/dL (60-115)
[2022-04-30] MEDS: Fluticasone/Vilanterol 100/25 BLST.W.DEV 1 PUFF INHALE (12:25)
[2022-04-30 12:26] VITALS: PULSE 73; RESP 18
--- NOTE | 2022-04-30 12:59 | MHC.CM.PN ---
pt dcd home no skilled services ordered by
--- NOTE | 2022-04-30 13:49 | PM.DS ---
DS: Providers Provider Date of Service: 04/30/22 Date of admission: 04/27/22 20:53 Primary care physician: Adam Woodson MD Consults: 04/28/22 14:22 Consult to Gastroenterology Routine Consulting Provider: Rl Noguera Reason for consultation: pancreatic cyst Has provider been notified: No DS: Diagnosis Discharge Diagnosis (1) Acute pancreatitis: Status: Acute DS: Summary Hospital Course Hospital Course: Date of Service: 04/27/22 Chief Complaint: Epigastric pain This is a 76 year old female with a pertinent history of insulin-dependent diabetes mellitus, generalized anxiety disorder, mixed hyperlipidemia, insomnia, nonischemic cardiomyopathy who presents to the emergency department for evaluation of epigastric pain.? Patient states she was admitted to [facility] and discharged about 3 weeks ago for similar complaints.? She is a poor historian and does not remember her diagnosis but states it was related to her pancreas.? Patient continued to have epigastric pain after discharge from [facility], which was progressive in onset, nonradiating, worsened with p.o. intake and without any relieving factors.? Patient also has associated nausea and is with poor p.o. intake over the last 2 weeks.? Patient denies significant alcohol use.? She denies fever, chills, vomiting, chest discomfort, shortness of breath, palpitations, changes in urinary or bowel habits.? 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 Hospital course 76 year old female with a pertinent history of insulin-dependent diabetes mellitus, generalized anxiety disorder, mixed hyperlipidemia, insomnia, nonischemic cardiomyopathy who presents to the emergency department for evaluation of epigastric pain. #. Acute pancreatitis, patient admitted with abdominal pain noted to have elevated lipase, abdominal ultrasound and CT abdomen consistent with pancreatic cyst and ductal dilatation it showed normal-appearing liver and intra and extrahepatic ducts, patient was recently discharged from [facility] on April 20 reviewed [facility] record that showed patient was discharged on April 20 from [facility] with a diagnosis of acute pancreatitis Where she underwent abdominal CT, abdominal ultrasound and an MRCP that showed an ill-defined 1.2 cm lesion limited by motion artifact the pancreatic neck body and tail showed some mild duct dilatation patient was recommended follow-up MRCP after acute pancreatitis is resolved in 4 weeks, but due to abdominal pain patient came to [facility], patient was treated with IV fluid analgesics lisinopril was discontinued patient denied history of alcohol LFTs within normal range triglycerides were normal lisinopril was discontinued, with these measures patient abdominal pain has resolved she has been recommended to follow low fat diet, she has been strongly recommended to follow-up with primary care physician to have MRCP arranged in next 3-4 weeks once all her symptoms are resolved, she is being discharged home oxycodone 5 mg # 20 to be use for recurrent abdominal pain. ? Patient seen by Dr. Noguera he agreed with above treatment plan patient lipase was 657 that bumped to 811, at [facility] it was 1500 at time of discharge but since she is clinically better with no pain tolerating low-fat diet she is being discharged home. #.? Acute kidney injury, prerenal due to intravascular volume depletion resolved #.? Nonischemic cardiomyopathy -continue Coreg, Zetia, Lipitor, Corlanor and Lasix #.? 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 #.?Hypomagnesemia -repleted, repeat magnesium 2 #.? Generalized anxiety disorder -continue home medications #.? Mixed hyperlipidemia -continue statin and ezetimibe #.? Mild persistent? Asthma -continue home inhaler.? No exacerbation Time Spent with Patient Time attestation: Total time spent providing and/or coordinating discharge services: Discharge coordination time: Greater than 30 minutes Quality: Safe Use of Opioids Does Pt have an Active Cancer Diagnosis on the Problem List?: No Quality: Stroke Does the patient have a stroke diagnosis?: No Physical Exam Vital Signs: Vital Signs: Last Vital Signs Temp 98.2 F 04/30/22 11:11 Pulse 73 04/30/22 12:26 Resp 18 04/30/22 12:26 BP 126/65 04/30/22 11:11 Pulse Ox 95 04/30/22 11:11 O2 Del Method 04/30/22 11:11 O2 Flow Rate 2 04/28/22 08:00 BMI result Body Mass Index 31.6 Const: Other: General awake alert x3 no acute distress Anicteric sclera Neck supple, no JVD CVS regular rate rhythm Lungs clear to auscultation, no wheezing , no use of accessory muscles Abdomen? no epigastric tenderness , bowel sounds audible? no guarding, no rigidity Psych: Normal mood Extremities no edema Psych appropriate affect DS: Data Data Completed and Pending Labs on day of discharge: Laboratory Results - last 24 hr 04/29/22 04/29/22 04/30/22 16:08 20:00 07:07 Sodium Potassium Chloride Carbon Dioxide Anion Gap BUN Creatinine Estim Creat Clear Calc Estimated GFR POC Glucose 256 H 274 H 194 H Random Glucose Calcium Lipase 04/30/22 04/30/22 08:42 11:10 Sodium 140 Potassium 3.7 Chloride 101 Carbon Dioxide 27 Anion Gap 16 BUN 5 L Creatinine 0.77 Estim Creat Clear Calc 62.1 Estimated GFR > 60 POC Glucose 362 H* Random Glucose 213 H Calcium 9.8 D Lipase 811 H Preliminary micro results at discharge 04/27/22 17:53 Blood Culture - Preliminary Blood - Venous No growth after 48 hours. 04/27/22 18:11 Blood Culture - Preliminary Blood - Venous No growth after 48 hours. Discharge Plan Discharge Anticipated Discharge Date/Time: 04/30/22 13:46 Patient Disposition: Home, Self-Care Discharge Diagnosis: Pancreatitis Abnormal imaging study of pancreas Hypo magnesemia Referrals: Adam Woodson MD [Primary Care Provider] - 1 Week Discharge Medications: New oxycodone 5 mg tablet 5 mg PO Q6H PRN (Reason: pain (scale score 7-10)) Qty: 20 0RF Rx Instructions: Partial Fill upon patient request. amlodipine 5 mg Tablet 5 mg PO DAILY Qty: 30 0RF Protocol: Hold for SBP< HOLD for SBP < : 90 Continued (DME) pen needle, diabetic [BD Cori 2nd Gen Pen Needle] 32 gauge x 5/32 needle See Rx Instructions .MEDSUPPLY Qty: 100 4RF Rx Instructions: once a day carvedilol 12.5 mg tablet 12.5 mg PO BID 90 Days Qty: 180 3RF Corlanor 5 mg tablet 5 mg PO DAILY 30 Days Qty: 90 3RF famotidine 20 mg tablet 40 mg PO DAILY Qty: 60 0RF docusate sodium 100 mg capsule 100 mg PO BID PRN (Reason: constipation) 30 Days Qty: 60 0RF calcium carbonate-vitamin D3 [Oyster Shell Calcium-Vit D3] 500 mg-5 mcg (200 unit) tablet 1 tab PO BID Qty: 60 2RF trazodone 50 mg tablet 100 mg PO BEDTIME Qty: 60 3RF folic acid 1 mg tablet 1 mg PO DAILY Qty: 30 1RF ezetimibe 10 mg tablet 10 mg PO DAILY Qty: 30 1RF Trulicity 3 mg/0.5 mL pen injector 3 mg subcut QWEEK 90 Days Qty: 6.5 1RF tizanidine 2 mg tablet 2 mg PO BEDTIME PRN (Reason: Muscle Spasm) Rx Instructions: start with 1/2 tab as medication can cause sedation dicyclomine 20 mg tablet 20 mg PO QID PRN (Reason: Abdominal Discomfort) metformin 500 mg tablet extended release 24hr 500 mg PO BIDWM Trulance 3 mg tablet 3 mg PO DAILY insulin degludec [Tresiba FlexTouch U-100] 100 unit/mL (3 mL) insulin pen 30 unit subcut BEDTIME sennosides 8.6 mg tablet 17.2 mg PO DAILY PRN (Reason: Constipation) acetaminophen 500 mg tablet 500 mg PO Q8H PRN (Reason: fever) 30 Days Qty: 90 3RF (DME) FreeStyle Lite Strips Strip See Rx Instructions .Route Qty: 100 11RF Rx Instructions: As directed two times a day albuterol sulfate 2.5 mg /3 mL (0.083 %) solution for nebulization 2.5 mg continuous nebulization Q6H PRN (Reason: shortness of breath or wheezing) 30 Days Qty: 360 5RF fluticasone propionate 50 mcg/actuation spray,suspension 2 spray intranasal DAILY PRN (Reason: allergy symptoms) Qty: 16 5RF Rx Instructions: administer into each nostril (DME) HUMIDIFIER See Rx Instructions .Route .MEDSUPPLY Qty: 1 0RF Rx Instructions: As directed furosemide 40 mg tablet 40 mg PO DAILY memantine 10 mg tablet 10 mg PO BID lorazepam 0.5 mg tablet 0.5 mg PO BEDTIME PRN (Reason: Anxiety) (DME) blood-glucose meter [FreeStyle [place] Lite] Kit See Rx Instructions .Route Rx Instructions: As directed twice a day albuterol sulfate [ProAir HFA] 90 mcg/actuation HFA aerosol inhaler 2 puff inhalation Q6H PRN (Reason: Shortness Of Breath) 30 Days Qty: 8.5 11RF Breo Ellipta 100-25 mcg/dose blister with device 1 inh inhalation DAILY 30 Days Qty: 60 11RF escitalopram oxalate 20 mg tablet 20 mg PO DAILY gabapentin 300 mg capsule 300 mg PO BEDTIME 30 Days Qty: 30 6RF atorvastatin 80 mg tablet 80 mg PO BEDTIME 30 Days Qty: 30 11RF secukinumab 150 mg/mL pen injector 150 mg subcut Q4W Qty: 2 1RF Discontinued lisinopril 20 mg tablet 20 mg PO DAILY 90 Days Qty: 90 3RF tramadol 50 mg tablet 1 tab PO Q6H PRN (Reason: severe pain) Discharge Orders: Discharge Order (Routine); Ordered 04/30/22 Ordered By: Kandy Ceballos Diet: Low fat, low cholesterol Activity on Discharge: As tolerated Stand Alone Forms: Patient Portal Discharge page Care Plan Goals: Abdominal pain improved/lipase remains elevated recommend low-fat diet, follow-up with pcp for repeat MRCP in next 3-4 weeks Lisinopril held since can cause pancreatitis, started on Norvasc 5 mg by mouth daily follow blood pressure Health Concerns: Diabetes mellitus hypertension continue home medication follow diabetic diet Plan of Treatment: Follow-up with primary care physician need MRCP for follow-up on pancreatitis/pancreatic cyst call to make an appointment in next 1-2 weeks Outpatient follow-up with Gastroenterology with Dr. Noguera or at [facility] Assessment: As above
--- NOTE | 2022-04-30 14:00 | MHC.CM.PN ---
Patient has been medically cleared for dc to home today, self care. Last IMM addressed on 04/28/2022.
== END 2022-04-30 16:03 | disposition home or self-care (01) | DRG 439 ==
LOC: HO.ED 18:46 → HO.EDOVER 21:03 → HO.IMC 04-28 16:18
PROVIDERS: Physician Assistant; Admitting Provider Student in an Organized Health Care Education/Training Program; Emergency Provider Emergency Medicine; PCP Internal Medicine; Visit Provider Hospitalist
DX: K85.90 Acute pancreatitis without necrosis or infection, unspecified (principal); I42.8 Other cardiomyopathies; N17.9 Acute kidney failure, unspecified; G47.33 Obstructive sleep apnea (adult) (pediatric); F41.1 Generalized anxiety disorder; I12.9 Hypertensive chronic kidney disease with stage 1 through stage 4 chronic kidney disease, or unspecified chronic kidney disease; N18.30 Chronic kidney disease, stage 3 unspecified; E11.22 Type 2 diabetes mellitus with diabetic chronic kidney disease; E11.40 Type 2 diabetes mellitus with diabetic neuropathy, unspecified; E21.3 Hyperparathyroidism, unspecified; E11.65 Type 2 diabetes mellitus with hyperglycemia; K59.09 Other constipation; J45.30 Mild persistent asthma, uncomplicated; Z87.440 Personal history of urinary (tract) infections; E78.2 Mixed hyperlipidemia; Z96.651 Presence of right artificial knee joint; Z88.0 Allergy status to penicillin; Z88.5 Allergy status to narcotic agent; Z88.6 Allergy status to analgesic agent; Z79.51 Long term (current) use of inhaled steroids; Z79.4 Long term (current) use of insulin; Z79.84 Long term (current) use of oral hypoglycemic drugs; Z79.899 Other long term (current) drug therapy
CPT/HCPCS: 36415; 74177; 76705; 80048; 80053; 81003; 82550; 82947; 83036; 83605; 83690; 83735; 84478; 85025; 85027; 87040; 87635; 94640; 99285; J1650; J2270; J3475; Q9967

== ENCOUNTER 2022-05-20 09:04 | Outpatient (REF) | payer OTHER, SELFPAY ==
[2022-05-20 10:36] LABS: MANUAL DIFF FLAG NO
[2022-05-20 10:39] LABS: Basophils Absolute Auto 0.1 X10*3/uL (0.0-0.2); Basophils Percent Auto 0.7 % (0-2); Eosinophils Absolute Auto 0.5 X10*3/uL (0.0-0.4); Eosinophils Percent Auto 4.5 % (0-4); Hematocrit 39.1 % (37.0-47.0); Hemoglobin 12.6 g/dl (12.0-16.0); Imm Gran Abs Auto 0.03 X10*3/uL (0.00-0.03); Imm Gran Pct Auto 0.3 % (0.0-0.4); Lymphocytes Absolute Auto 2.9 X10*3/uL (1.2-4.9); Lymphocytes Percent Auto 26.3 % (20-40); Mean Corpuscular HGB Conc 32.2 g/dl (31.0-35.0); Mean Corpuscular Hemoglobin 29.7 pg (27.0-33.0); Mean Corpuscular Volume 92.2 fL (80.0-98.0); Monocytes Absolute Auto 0.8 X10*3/uL (0.1-1.2); Monocytes Percent Auto 6.9 % (2-11); Neutrophils Absolute Auto 6.7 x10*3/uL (2.0-8.3); Neutrophils Percent Auto 61.3 % (45-73); Platelet Count 243 X10*3/uL (160-400); Red Blood Count 4.24 X10*6/uL (4.20-5.50); White Blood Count 10.9 X10*3/uL (4.8-10.8)
[2022-05-20 10:48] LABS: Estimated Average Glucose 212 mg/dL
[2022-05-20 11:03] LABS: Alanine Aminotransferase 17 U/L (0-31); Albumin Level 4.5 g/dL (3.5-5.0); Alkaline Phosphatase 87 U/L (39-117); Amylase 132 U/L (28-100); Anion Gap 17 (12-20); Aspartate Amino Transferase 18 U/L (5-31); Bilirubin Total 0.6 mg/dL (0.0-1.0); Blood Urea Nitrogen 11 mg/dL (9-16); Calcium 10.4 mg/dL (8.4-10.2); Carbon Dioxide 25 mmol/L (22-29); Chloride 98 mmol/L (96-108); Cholesterol 120 mg/dL; Estimated Glomerular Filt Rate > 60; Glucose Random 368 mg/dL (60-115); HDL Cholesterol 41 mg/dL; LDL Cholesterol Calculated 51 mg/dl; Lipase 706 U/L (8-78); Phosphorus 3.4 mg/dL (2.7-4.5); Potassium 4.6 mmol/L (3.3-5.1); Sodium 135 mmol/L (135-145); Triglycerides 140 mg/dL
[2022-05-20 11:12] LABS: Free T4 (Free Thyroxine) 1.11 ng/dL (0.71-1.85)
[2022-05-20 11:17] LABS: Thyroid Stimulating Hormone 0.57 uIU/mL (0.32-4.0)
[2022-05-24 12:42] LABS: Calcium (PTHI) 10.3 mg/dL (8.6-10.4); PTHI 41 pg/mL (16-77)
== END 2022-05-20 09:05 | disposition home or self-care (01) ==
LOC: HO.10HDL 09:04
PROVIDERS: Absent Provider Nurse Practitioner Family; Visit Provider Internal Medicine
DX: K85.90 Acute pancreatitis without necrosis or infection, unspecified (principal); I10 Essential (primary) hypertension; E04.2 Nontoxic multinodular goiter; E55.9 Vitamin D deficiency, unspecified; E11.9 Type 2 diabetes mellitus without complications; E21.3 Hyperparathyroidism, unspecified
CPT/HCPCS: 36415; 80053; 80061; 82150; 82306; 83036; 83690; 83970; 84100; 84439; 84443; 85025

== ENCOUNTER 2022-06-02 11:28 | Outpatient (REF) | payer OTHER, SELFPAY ==
[2022-06-03 10:15] LABS: BV Int Neg Control Negative (Negative); BV Int Pos Control Positive (Positive)
== END 2022-06-02 11:29 | disposition home or self-care (01) ==
LOC: HO.LNP 11:28
PROVIDERS: Visit Provider Advanced Practice Midwife
DX: N95.2 Postmenopausal atrophic vaginitis (principal)
CPT/HCPCS: 87480; 87510; 87660; 99202

== ENCOUNTER 2022-08-18 18:33 | Inpatient (IN) | payer OTHER, SELFPAY ==
--- NOTE | ~2022-08-18 | XR_ITS ---
EXAMINATION: XR CHEST CLINICAL INFORMATION: Weakness COMPARISON: Chest x-ray on 07/28/2020 TECHNIQUE: 2 views of the chest were obtained. FINDINGS: There is a left chest biventricular ICD. The cardiomediastinal silhouette is stable. No areas of consolidation or pleural effusions. Linear atelectasis in the right midlung. There is a right shoulder arthroplasty. XR/XR chest 2V IMPRESSION: Linear atelectasis in the right midlung.
[2022-08-18 18:45] VITALS: BP 114/63; PULSE 73; O2SAT 95
--- NOTE | 2022-08-18 19:02 | ED_ITS ---
HPI - General Adult General Chief complaint: General Medical Stated complaint: NOT EATING/DRINKING X'S 2 DAYS PER EMS Time Seen by Provider: 08/18/22 18:50 Source: family and old records reviewed Limitations: altered mental status History of Present Illness HPI narrative: Patient is unable to provide a narrative so I spoke with her daughter over the phone. Patient has terminal and end-stage pancreatic cancer with metastases to multiple organs including the liver. She is on home hospice care but the daughter can no longer take care of her. She is not been awake or eaten had anything to drink in the last 2 days. She is total care and the patient only has a HUMAN SERVICES INSTRUCTOR in the morning. She called the ambulance today because she feels she is unable to continue to care for her mother as she requires 247 round the clock nursing care at the moment. She states her goal is to keep her comfortable. She does not want any significant workup done. She call palliative care who recommended she call the ambulance. Related Data Home Medications Medication Instructions Recorded Confirmed memantine 10 mg tablet 10 mg PO BID 06/19/20 06/06/22 furosemide 40 mg tablet 40 mg PO DAILY 10/27/20 06/06/22 sennosides 8.6 mg tablet 17.2 mg PO DAILY PRN Constipation 01/20/21 06/06/22 blood-glucose meter (FreeStyle 05/05/21 06/06/22 [place] Lite kit) escitalopram oxalate 20 mg tablet 20 mg PO DAILY 04/02/22 06/06/22 metformin 500 mg tablet,extended 500 mg PO BIDWM 04/27/22 06/06/22 release 24hr tizanidine 2 mg tablet 2 mg PO BEDTIME PRN Muscle Spasm 04/27/22 06/06/22 Previous Rx's Medication Instructions Recorded acetaminophen 500 mg tablet 500 mg PO Q8H PRN fever 30 days 05/30/20 #90 tabs albuterol sulfate 90 mcg/actuation 2 puff inhalation Q6H PRN 04/21/21 aerosol inhaler (ProAir HFA) Shortness Of Breath 30 days #8.5 grams pen needle, diabetic 32 gauge x #100 ea 08/19/21 (BD Cori 2nd Gen Pen Needle) fluticasone furoate 100 1 inh inhalation DAILY 30 days #60 09/29/21 mcg-vilanterol 25 mcg/dose ea inhalation powder (Breo Ellipta) HUMIDIFIER #1 ea 10/22/21 albuterol sulfate 2.5 mg/3 mL 2.5 mg (3 mL) continuous 10/22/21 (0.083 %) solution for nebulization nebulization Q6H PRN shortness of breath or wheezing 30 days #360 mL blood sugar diagnostic (FreeStyle #100 ea 10/22/21 Lite Strips) docusate sodium 100 mg capsule 100 mg PO BID PRN constipation 30 02/10/22 days #60 caps trazodone 50 mg tablet 100 mg PO BEDTIME #60 tabs 03/10/22 secukinumab 150 mg/mL subcutaneous 150 mg subcut Q4W #2 mL 03/26/22 pen injector gabapentin 300 mg capsule 300 mg PO BEDTIME 30 days #30 caps 04/02/22 amlodipine 5 mg tablet 5 mg PO DAILY #30 tabs 04/30/22 fluticasone propionate 50 2 spray intranasal DAILY PRN 05/07/22 mcg/actuation nasal allergy symptoms #16 grams spray,suspension dulaglutide 3 mg/0.5 mL 3 mg (0.5 mL) subcut QWEEK 90 days 05/13/22 subcutaneous pen injector #6.5 mL ([facility]) clotrimazole-betamethasone 1 1 appl topical BID PRN itching 7 06/02/22 %-0.05 % topical cream days #45 grams atorvastatin 80 mg tablet 80 mg PO BEDTIME 30 days #30 tabs 06/03/22 calcium carbonate 500 mg-vitamin 1 tab PO BID #60 tabs 06/03/22 D3 5 mcg (200 unit) tablet (Oyster Shell Calcium-Vitamin D3) dicyclomine 20 mg tablet 20 mg PO QID PRN Abdominal 06/03/22 Discomfort #1 tab carvedilol 6.25 mg tablet 6.25 mg PO BID #60 tabs 06/08/22 ezetimibe 10 mg tablet 10 mg PO DAILY #30 tabs 06/16/22 ondansetron 4 mg disintegrating 4 mg PO Q8H PRN nausea and 06/18/22 tablet vomiting 15 days #45 tabs oxycodone 5 mg tablet 5 mg PO Q6-8H PRN pain #20 tabs 06/18/22 folic acid 1 mg tablet 1 mg PO DAILY #30 tabs 07/19/22 plecanatide 3 mg tablet (Trulance) 3 mg PO DAILY #30 tabs 07/20/22 famotidine 20 mg tablet 40 mg PO DAILY #180 tabs 08/12/22 insulin degludec 100 unit/mL (3 30 unit (0.3 mL) subcut BEDTIME 08/12/22 mL) subcutaneous pen (Tresiba #15 mL FlexTouch U-100 insulin) Allergies Allergy/AdvReac Type Severity Reaction Status Date / Time aspirin [Aspirin] Allergy Severe STOMACH Verified 06/06/22 21:33 UPSET, stomach pain baclofen Allergy Severe dizziness Verified 06/06/22 21:33 oxycodone [Percocet] Allergy Severe itchiness Verified 06/06/22 21:33 Penicillins Allergy Severe ANAPHYLAXIS Verified 06/06/22 21:33 Review of Systems Review of Systems: Unable [facility] Past Medical History Medical History (Updated 08/18/22 @ 19:47 by Bg Samuel MD) Adenocarcinoma of pancreas Anxiety Asthma Benign essential hypertension Cardiomyopathy Chronic kidney disease (CKD), stage III (moderate) Constipation Dementia Depression Diabetes mellitus Dyslipidemia Dysphagia GERD without esophagitis HLD (hyperlipidemia) Hyperparathyroidism Hypertension Insomnia Insomnia LBBB (left bundle branch block) Lesion of liver Low Back Pain Lumbar spondylosis Mixed stress and urge urinary incontinence Multinodular thyroid NICM (nonischemic cardiomyopathy) (Unknown) Non-toxic multinodular goiter Obesity (BMI 30-39.9) LISSA (obstructive sleep apnea) Psoriatic arthritis Pure hypercholesterolemia Sinus tachycardia T2DM (type 2 diabetes mellitus) 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 2 diabetes mellitus with other diabetic kidney complication UTI (urinary tract infection) UTI (urinary tract infection) Vitamin D deficiency Surgical History History of section History of knee replacement procedure of right knee History of left knee replacement History of partial hysterectomy History of repair of rotator cuff History of shoulder surgery History of surgery Family History Family History Father Prostate cancer Mouth cancer Mother Type 2 diabetes mellitus Hyperlipidemia Diabetes Hypertension Other Mental health problem Social History Social History Household Members: None Housing: Apartment Do you presently have visiting nurse or other home services: Yes (HUMAN SERVICES INSTRUCTOR partial) Alcohol intake: current Alcohol intake frequency: holidays/special occasions only Patient Tobacco Use Status: Never used Tobacco e-Cigarette/Vaping Use: Never Used Second Hand Smoke Exposure: No Advance Directives: No Advance Directives Information Provided: Yes service: No Current occupational status: retired Cognitive needs: No Hearing needs: No Vision needs: Yes Physical Exam ED Vital Signs: Vital Signs - 24 hr 08/18/22 19:25 Temperature 97.5 F Pulse Rate 68 Respiratory Rate 16 Blood Pressure 116/66 Pulse Oximetry 95 Oxygen Delivery Method Room Air BMI result Body Mass Index 25.7 Const Other: Patient is somnolent. She opens her eyes briefly to shaking but does not speak. Eyes Other: Scleral icterus Resp Other: Clear and equal bilaterally Cardio Other: Regular rate and rhythm GI Other: Soft and nondistended. Patient does not respond to palpation Skin Other: Severely jaundiced skin Medical Decision Making Medical Decision Making MDM Narrative: Old records reviewed. Patient has terminal and end-stage metastatic pancreatic cancer. She is likely imminent within the next few days as she is not responding, eating, drinking. I have canceled initial set of laboratory and radiology evaluation. Have spoken with our social media executive who believes she will qualify for inpatient hospice. Will try to admit under hospice. Discharge Plan Discharge Clinical Impression: Admission for palliative care, Cancer of head of pancreas Patient Disposition: Admitted As Inpatient Prescriptions: No Action (DME) pen needle, diabetic [BD Cori 2nd Gen Pen Needle] 32 gauge x 5/32 needle See Rx Instructions .MEDSUPPLY Qty: 100 4RF Rx Instructions: once a day docusate sodium 100 mg capsule 100 mg PO BID PRN (Reason: constipation) 30 Days Qty: 60 0RF trazodone 50 mg tablet 100 mg PO BEDTIME Qty: 60 3RF fluticasone propionate 50 mcg/actuation spray,suspension 2 spray intranasal DAILY PRN (Reason: allergy symptoms) Qty: 16 5RF Rx Instructions: administer into each nostril Trulicity 3 mg/0.5 mL pen injector 3 mg subcut QWEEK 90 Days Qty: 6.5 1RF atorvastatin 80 mg tablet 80 mg PO BEDTIME 30 Days Qty: 30 11RF Hold Instructions: Doctor's Order calcium carbonate-vitamin D3 [Oyster Shell Calcium-Vit D3] 500 mg-5 mcg (200 unit) tablet 1 tab PO BID Qty: 60 2RF dicyclomine 20 mg tablet 20 mg PO QID PRN (Reason: Abdominal Discomfort) Qty: 1 0RF carvedilol 6.25 mg tablet 6.25 mg PO BID Qty: 60 5RF Rx Instructions: must administer with a meal/food ezetimibe 10 mg tablet 10 mg PO DAILY Qty: 30 1RF ondansetron 4 mg tablet,disintegrating 4 mg PO Q8H PRN (Reason: nausea and vomiting) 15 Days Qty: 45 1RF oxycodone 5 mg tablet 5 mg PO Q6-8H PRN (Reason: pain) Qty: 20 0RF Rx Instructions: Partial Fill upon patient request. folic acid 1 mg tablet 1 mg PO DAILY Qty: 30 1RF Trulance 3 mg tablet 3 mg PO DAILY Qty: 30 0RF insulin degludec [Tresiba FlexTouch U-100] 100 unit/mL (3 mL) insulin pen 30 unit subcut BEDTIME Qty: 15 2RF famotidine 20 mg tablet 40 mg PO DAILY Qty: 180 0RF tizanidine 2 mg tablet 2 mg PO BEDTIME PRN (Reason: Muscle Spasm) Rx Instructions: start with 1/2 tab as medication can cause sedation metformin 500 mg tablet extended release 24hr 500 mg PO BIDWM amlodipine 5 mg Tablet 5 mg PO DAILY Qty: 30 0RF Hold Instructions: Doctor's Order Protocol: Hold for SBP< HOLD for SBP < : 90 sennosides 8.6 mg tablet 17.2 mg PO DAILY PRN (Reason: Constipation) acetaminophen 500 mg tablet 500 mg PO Q8H PRN (Reason: fever) 30 Days Qty: 90 3RF (DME) FreeStyle Lite Strips Strip See Rx Instructions .Route Qty: 100 11RF Rx Instructions: As directed two times a day albuterol sulfate 2.5 mg /3 mL (0.083 %) solution for nebulization 2.5 mg continuous nebulization Q6H PRN (Reason: shortness of breath or wheezing) 30 Days Qty: 360 5RF (DME) HUMIDIFIER See Rx Instructions .Route .MEDSUPPLY Qty: 1 0RF Rx Instructions: As directed furosemide 40 mg tablet 40 mg PO DAILY memantine 10 mg tablet 10 mg PO BID (DME) blood-glucose meter [[employer] [place] Lite] Kit See Rx Instructions .Route Rx Instructions: As directed twice a day albuterol sulfate [ProAir HFA] 90 mcg/actuation HFA aerosol inhaler 2 puff inhalation Q6H PRN (Reason: Shortness Of Breath) 30 Days Qty: 8.5 11RF Breo Ellipta 100-25 mcg/dose blister with device 1 inh inhalation DAILY 30 Days Qty: 60 11RF escitalopram oxalate 20 mg tablet 20 mg PO DAILY gabapentin 300 mg capsule 300 mg PO BEDTIME 30 Days Qty: 30 6RF secukinumab 150 mg/mL pen injector 150 mg subcut Q4W Qty: 2 1RF clotrimazole-betamethasone 1-0.05 % cream 1 appl topical BID PRN (Reason: itching) 7 Days Qty: 45 0RF
[2022-08-18 19:25] VITALS: BP 116/66; PULSE 68; RESP 16; TEMP 36.4; O2SAT 95; BMI 25.7
--- NOTE | 2022-08-18 19:31 | PC.NURSE ---
Pt is asleep, V/S are stable. This nurse dimmed light and arraged the room for a comfortable environment d/t pt is in in palliative care.
--- NOTE | 2022-08-18 19:33 | PC.NURSE ---
Pt is asleep, V/S are stable. This nurse dimmed light and arranged the room for a comfortable environment d/t pt is in in palliative care.
--- NOTE | 2022-08-18 19:34 | PC.NURSE ---
Provider has spoken to this nurse, provider reports, he has spoken with PT's DTR and the reason she is in the hospital is due to pt's dtr is burn out from taking care her mom. The plan is making the pt as comfortable as possible d/t she is diagnosed with advanced stage of pancreatic cancer. Provider has notified he is going to cancel all order.
[2022-08-18 20:15] VITALS: BP 124/68; PULSE 75; RESP 16; TEMP 36.6; O2SAT 98
--- NOTE | 2022-08-18 20:19 | PM.IMHP ---
History of Present Illness Date of Service: 08/18/22 Chief Complaint: Comfort care This is a 76-year-old female with pertinent history of pancreatic cancer with metastasis who was brought by EMS as daughter is unable to take care of her at home. Patient is on home hospice and daughter states that patient has been drowsy and hospice not eaten anything in the last 2 days. The daughter states that patient requires 247 care and she only has a PC in the morning. The patient requires complete nursing care which daughter is unable to provider home and hence she was sent to the ER. Goal is comfort care at this point. The daughter does not want any workup on treatment. Unable to obtain any history from the patient. History obtained via daughter over the phone by ER provider. Unable to obtain review of systems Review of Systems Review of Systems: Yes Unobtainable due to mental status PMFSH Medical History Adenocarcinoma of pancreas Anxiety Asthma Benign essential hypertension Cardiomyopathy Chronic kidney disease (CKD), stage III (moderate) Constipation Dementia Depression Diabetes mellitus Dyslipidemia Dysphagia GERD without esophagitis HLD (hyperlipidemia) Hyperparathyroidism Hypertension Insomnia Insomnia LBBB (left bundle branch block) Lesion of liver Low Back Pain Lumbar spondylosis Mixed stress and urge urinary incontinence Multinodular thyroid NICM (nonischemic cardiomyopathy) (Unknown) Non-toxic multinodular goiter Obesity (BMI 30-39.9) LISSA (obstructive sleep apnea) Psoriatic arthritis Pure hypercholesterolemia Sinus tachycardia T2DM (type 2 diabetes mellitus) 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 2 diabetes mellitus with other diabetic kidney complication UTI (urinary tract infection) UTI (urinary tract infection) Vitamin D deficiency Family History Father Prostate cancer Mouth cancer Mother Type 2 diabetes mellitus Hyperlipidemia Diabetes Hypertension Other Mental health problem Surgical History History of section History of knee replacement procedure of right knee History of left knee replacement History of partial hysterectomy History of repair of rotator cuff History of shoulder surgery History of surgery Social History Household Members: None Housing: Apartment Do you presently have visiting nurse or other home services: Yes (MACHINE SHORTHAND REPORTER partial) Alcohol intake: current Alcohol intake frequency: holidays/special occasions only Patient Tobacco Use Status: Never used Tobacco e-Cigarette/Vaping Use: Never Used Second Hand Smoke Exposure: No Advance Directives: No Advance Directives Information Provided: Yes service: No Current occupational status: retired Cognitive needs: No Hearing needs: No Vision needs: Yes Meds Allergies Allergy/AdvReac Type Severity Reaction Status Date / Time aspirin [Aspirin] Allergy Severe STOMACH Verified 06/06/22 21:33 UPSET, stomach pain baclofen Allergy Severe dizziness Verified 06/06/22 21:33 oxycodone [Percocet] Allergy Severe itchiness Verified 06/06/22 21:33 Penicillins Allergy Severe ANAPHYLAXIS Verified 06/06/22 21:33 Active Medications: Current Medications Morphine Sulfate (Morphine Sulfate/Ns) 100 mg in 100 mls @ 0 mls/hr IVCONT .Q0M TORRES; Protocol Morphine Sulfate (Morphine Sulfate 4 Mg/Ml Cartridge) 4 mg IVPUSH Q4H PRN; Protocol PRN Reason: Pain, Severe (Pain Scale 7-10) Ondansetron HCl (Ondansetron Hcl 4 Mg/2 Ml Vial) 4 mg IVPUSH Q8H PRN PRN Reason: Nausea and Vomiting Sodium Chloride (0.9 % Sodium Chloride Flush 3 Ml Syringe) 3 [facility] Medications Medication Instructions Recorded Confirmed Last Taken Type memantine 10 mg tablet 10 mg PO BID 06/19/20 06/06/22 Unknown History furosemide 40 mg tablet 40 mg PO DAILY 10/27/20 06/06/22 Unknown History sennosides 8.6 mg tablet 17.2 mg PO DAILY PRN Constipation 01/20/21 06/06/22 Unknown History blood-glucose meter (FreeStyle 05/05/21 06/06/22 Unknown History [place] Lite kit) escitalopram oxalate 20 mg tablet 20 mg PO DAILY 04/02/22 06/06/22 Unknown History metformin 500 mg tablet,extended 500 mg PO BIDWM 04/27/22 06/06/22 Unknown History release 24hr tizanidine 2 mg tablet 2 mg PO BEDTIME PRN Muscle Spasm 04/27/22 06/06/22 Unknown History Physical Exam Vital Signs and Narrative: Vital Signs: Last Vital Signs Temp 97.5 F 08/18/22 19:25 Pulse 68 08/18/22 19:25 Resp 16 08/18/22 19:25 BP 116/66 08/18/22 19:25 Pulse Ox 95 08/18/22 19:25 O2 Del Method 08/18/22 19:25 BMI result Body Mass Index 25.7 Elderly female lying in bed in no distress Icteric skin Regular rate and rhythm, S1-S2 heard Regular breath sounds bilaterally, no wheezing or crackles appreciated Abdomen soft nontender, no guarding, no rigidity Patient is drowsy and eye opening to verbal stimulus Psych: Drowsy Results Imaging Radiologist's Impressions: Impressions Chest X-Ray 08/18/22 19:14 IMPRESSION: Linear atelectasis in the right midlung. Assessment and Plan (1) Admission for palliative care: Status: Acute (2) Adenocarcinoma of pancreas: Status: Acute Plan This is a 76-year-old female with pertinent history of pancreatic cancer with metastasis who was brought by EMS as daughter is unable to take care of her at home. #. Admission for palliative care in a patient with metastatic pancreatic cancer: Will admit for comfort care and consult Case Management to transition to inpatient hospice. Morphine and Ativan p.r.n. Time Spent With Patient Time: Total time managing care of this patient today ____ minutes. Quality Stroke Does the patient have a stroke diagnosis?: No VTE Prior VTE?: No VTE Risk Level:: Medical - moderate - high VTE Device Contraindication: Treatment Not Indicated VTE Drug Contraindication: Treatment Not Indicated
--- NOTE | 2022-08-18 20:37 | MHC.EDTECH ---
pt was policy change clerk into hospital attire ,pt vitals sign taken .
[2022-08-18 21:18] LABS: COVID-19 Test Negative (Negative); IDNOW Serial# 6674DD1D
--- NOTE | 2022-08-18 21:41 | MHC.EDTECH ---
PATIENT WOKE UP AND ASK FOR A WARM BLANKET .
--- NOTE | 2022-08-18 21:55 | MHC.CM.PN ---
Addendum entered by Trinh Gambino 08/18/22 22:29: No hospice referrals placed at this time and no SNF for fdc care with SENIOR JAVA DATA ARCHITECT place. Will re-assess in the morning. CM will follow for discharge planning. Addendum entered by Trinh Gambino 08/18/22 22:25: Per Eda LAKE from [facility], pt was just admitted to their service about 2 weeks ago. Was just diagnosed in June. Daughter tells CM her mother saw oncology on 06/30 and they told her her mother only had weeks to live. Addendum entered by Trinh Gambino 08/18/22 22:16: Received return telephone call from Eda LAKE at [facility]. Eda tells CM that the last nursing note does not show an escalation of symptoms and that family social issues are more problematic. States daughter has minimal family supports and help with caring for her mother. [facility] her agency has been working on custodial placement for this patient without success. Pt was seen by hospice nurse today, but notes are not yet filed. States swallow is a new concern, but according to hospice, is something that can be managed at home. Hospice feels patients symptoms could be managed at home. Eda does not believe that [facility] hospice is warranted and tells CM that her agency will revoke hospice at this time, per her clinical administrator. Eda aware that IV medications have been ordered for pain and a morphine drip. CM will reach out to [facility] in the morning and will place referrals for fdc care with SENIOR JAVA DATA ARCHITECT in the morning. Daughter Marti requests to be called if mother's physical condition worsens. Requests that no information be given to her sister, Kelsey Reece. Pt bed is pending and is SENIOR JAVA DATA ARCHITECT. Original Note: RODRIGUEZ 08/18. CM received consult from Dr. Samuel for hospice. HCP/daughter Marti Miguel ([phone]). HCP on file from [facility]. Not dated, only 1 witness. Spoke with Marti on the telephone. Pt's daughter can no longer care for her mother. Pt fell yesterday. 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 Very limited family supports. Is trying to care for her mother at her mother's apartment. Mother with advanced metastatic pancreatic cancer. Daughter states mother goes from having pain and uncomfortable, to calm and relaxed. Mother has not eaten or drank in 2 days. States her mother cannot swallow. Pt opens eyes to name and nods. [facility] Daughter tells CM that hospice has been trying to find a custodial for her mother, without success. Daughter tells CM that she called [facility] today and told them she could no longer care for her mother and wanted to send her to the emergency room. Daughter tells CM that hospice told her they would discharge her mother from their service. Called [facility] and left message for return call ([phone]). CM following for discharge planning.
[2022-08-19] VITALS: BP 134/67; PULSE 69; RESP 13; TEMP 36.8; O2SAT 96
--- NOTE | 2022-08-19 04:12 | PC.NURSE ---
Received pt. from the main ED. Transferred pt. to hospital bed. Pt. made comfortable in bed. Lights turned down. Pt. denies any pain at this time. Pt. immediately went back to sleep. Will continue to monitor.
--- NOTE | 2022-08-19 06:07 | PC.NURSE ---
Pt. incontinent of dark yellow urine with foul odor. Pt. bedding changed. Pt. reporting pain. IV placed in right arm. Will medicate with morphine per SEP.
[2022-08-19 06:08] VITALS: RESP 16
[2022-08-19] MEDS: Morphine Sulfate 4 MG/ML CARTRIDGE IVPUSH (06:08)
--- NOTE | 2022-08-19 06:34 | PC.NURSE ---
Pt. sleeping, respirations even and unlabored. Pt. appears to be more comfortable following morphine administration.
--- NOTE | 2022-08-19 07:43 | PC.NURSE ---
assumed care of patient, pt repositioned for comfort, plan to obtain morphine gtt for MIX MAKER comfort
[2022-08-19] MEDS: Morphine Sulfate/NS 100 MG/100 ML PLAST..BAG IVCONT (08:36)
--- NOTE | 2022-08-19 10:39 | P.PNIM_ITS ---
Subjective Subjective Date of Service: 08/19/22 Interval History: Patient admitted for comfort care only, patient was on home hospice but daughter was no longer able to take care of her at home due to end-stage pancreatic cancer with metastasis to multiple organs therefore patient admitted to [facility], at present patient is somnolent, appears in no distress. Review of Systems Review of Systems: Yes Unobtainable due to mental status Physical Exam Vital Signs: Vital Signs: Last Vital Signs Temp 98.3 F 08/19/22 00:00 Pulse 69 08/19/22 00:00 Resp 16 08/19/22 06:08 BP 134/67 08/19/22 00:00 Pulse Ox 96 08/19/22 00:00 O2 Del Method 08/19/22 00:00 BMI result Body Mass Index 25.7 Const: Other: General somnolent, resting in bed, no distress Neck no JVD Lungs clear to auscultation, no use of accessory muscles Abdomen soft, bowel sounds audible Skin jaundiced Objective Data Active Medications Morphine Sulfate (Morphine Sulfate/Ns) 100 mg in 100 mls @ 0 mls/hr IVCONT .Q0M TORRES; Protocol Last Infusion: 08/19/22 10:18 Dose: 3 mg/hr, 3 mls/hr Documented By: RON Lorazepam (Lorazepam 2 Mg/Ml Vial) 1 mg IVPUSH Q2H PRN PRN Reason: anxiety/restlessness Morphine Sulfate (Morphine Sulfate 4 Mg/Ml Cartridge) 4 mg IVPUSH Q4H PRN; Protocol PRN Reason: Pain, Severe (Pain Scale 7-10) Last Admin: 08/19/22 06:08 Dose: 4 mg Documented By: AUGUSTO Ondansetron HCl (Ondansetron Hcl 4 Mg/2 Ml Vial) 4 mg IVPUSH Q8H PRN PRN Reason: Nausea and Vomiting Sodium Chloride (0.9 % Sodium Chloride Flush 3 Ml Syringe) 3 ml IVFLUSH QSHIFT [facility] Last Admin: 08/19/22 07:20 Dose: Not Given Documented By: RON Non-Admin Reason: IV Running Labs Labs: Laboratory Results - last 24 hr 08/18/22 20:57 COVID-19 (MARCELO) Negative COVID-19 Clin Com See Note Assessment and Plan (1) Admission for palliative care: Status: Acute (2) Cancer of head of pancreas: Status: Acute Plan End-stage metastatic pancreatic cancer On comfort care only Continue IV morphine drip, Ativan for anxiety or restlessness No labs, no intervention, goal of care towards comfort. Time Spent With Patient Time: Total time managing care of this patient today ____ minutes. Quality Stroke Does the patient have a stroke diagnosis?: No VTE Prior VTE?: No VTE Risk Level:: Medical - moderate - high VTE Device Contraindication: Treatment Not Indicated VTE Drug Contraindication: Treatment Not Indicated
--- NOTE | 2022-08-19 11:00 | MHC.EDTECH ---
Patient got oob and resulted in her ripping IV off of her right hand, (nurse replaced IV). Pt wanted to use the bathroom brought in a commode. Pt soiled floor with feces and was also sat on the commode. Pt received ADL care and was repositioned in [facility].
--- NOTE | 2022-08-19 13:09 | PC.NURSE ---
Patient sleeping is aroused by voice or tactile stimulation, spoke with daughter about plan of care also notified case management that daughter would like call. Tolerating IV morphine with good effect will CTM
--- NOTE | 2022-08-19 14:29 | MHC.CM.PN ---
CM SPOKE WITH PTS DAUGHTER, JUN WHO REPORTS SHE IS HOPING THE PT CAN GO TO A SNF ON HOSPICE. PER DISCUSSION, REFERRALS WERE MADE TO [facility] AND [facility] INDICATED THEY MAY BE ABLE TO ACCEPT PT, HOWEVER IT APPEARS PT DOES NOT HAVE A VALID HCP CM WILL ATTEMPT TO OBTAIN ONE, IF PT IS UNABLE TO COMPLETE ONE, CM WILL NOT BE ABLE TO PLACE HER, AND HOSPICE WOULD NOT SIGN HER ON
--- NOTE | 2022-08-19 14:40 | PC.NURSE ---
Patient tolerating Morphine drip daughter at bedside attempt to call report to 3rd floor RN will call back will CTM
--- NOTE | 2022-08-19 15:18 | PC.NURSE ---
Report to [facility] will prepare for transport
[2022-08-19 16:00] VITALS: BP 103/60; PULSE 81; RESP 18; TEMP 37.1; O2SAT 94
[2022-08-19 16:52] VITALS: RESP 18
[2022-08-19 23:55] VITALS: BP 117/58; PULSE 82; RESP 16; TEMP 36.2; O2SAT 95
[2022-08-20] VITALS (17 sets, daily range): BP systolic 107–117; BP diastolic 53–59; PULSE 72–82; RESP 16–18; TEMP 36–36.3; O2SAT 95–96
--- NOTE | 2022-08-20 09:44 | MHC.CLN ---
Addendum entered by Idalmis Dean RN 08/20/22 19:31: 21 ml of morphine wasted with ELTON TAMAYO RN. 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 DX PANCREATIC CANCER. PER EMR, HAD NOT EATEN FOR 2 DAYS PRIOR TO ADMISSION. DIET CHANGED TO FEED FROM FLOOR STOCK. RD AVAILABLE NEEDED.
--- NOTE | 2022-08-20 13:20 | P.PNIM_ITS ---
Subjective Subjective Date of Service: 08/20/22 Interval History: Patient awake alert complaining of abdominal discomfort, later in the day requested food, no overnight events. Review of Systems Review of Systems: Yes all other systems are reviewed and are negative Physical Exam Vital Signs: Vital Signs: Last Vital Signs Temp 96.8 F 08/20/22 08:00 Pulse 79 08/20/22 08:00 Resp 16 08/20/22 12:00 BP 117/59 L 08/20/22 08:00 Pulse Ox 96 08/20/22 08:00 O2 Del Method 08/20/22 08:00 BMI result Body Mass Index 25.7 Const: Other: General awake alert , no acute distress icteric sclera Neck supple, no JVD CVS regular rate rhythm Lungs clear to auscultation, no wheezing , no use of accessory muscles Abdomen? abdominal tenderness, bowel sounds audible? no guarding, no rigidity Extremities no edema Skin jaundiced Objective Data Active Medications Morphine Sulfate (Morphine Sulfate/Ns) 100 mg in 100 mls @ 0 mls/hr IVCONT .Q0M [facility]; Protocol Last Infusion: 08/20/22 06:19 Dose: 4 mg/hr, 4 mls/hr Documented By: DHARA Lorazepam (Lorazepam 2 Mg/Ml Vial) 1 mg IVPUSH Q2H PRN PRN Reason: anxiety/restlessness Morphine Sulfate (Morphine Sulfate 4 Mg/Ml Cartridge) 4 mg IVPUSH Q4H PRN; Protocol PRN Reason: Pain, Severe (Pain Scale 7-10) Last Admin: 08/19/22 06:08 Dose: 4 mg Documented By: AUGUSTO Ondansetron HCl (Ondansetron Hcl 4 Mg/2 Ml Vial) 4 mg IVPUSH Q8H PRN PRN Reason: Nausea and Vomiting Sodium Chloride (0.9 % Sodium Chloride Flush 3 Ml Syringe) [facility] Last Admin: 08/20/22 09:18 Dose: Not Given Documented By: OPAL Non-Admin Reason: IV Running Assessment and Plan (1) Admission for palliative care: Status: Acute (2) Cancer of head of pancreas: Status: Acute Plan 76-year-old female with past medical history of insulin-dependent diabetes mellitus, anxiety disorder, hyperlipidemia, nonischemic cardiomyopathy was admitted to [facility] in April, and was noted to have an ill-defined 1.2 cm lesion at the pancreatic neck body and tail and subsequently diagnosed to have metastatic pancreatic cancer, patient was at home with hospice on comfort measures only since patient lives alone and daughter was unable to take care of herself she was brought in to [facility]. 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 Will discharge on hospice meds Patient was not receiving any home medications at home, will hold all home medications Disposition spoke with patient's daughter Marti Miguel [phone], she wishes patient to be discharged to alf, spoke with Estrella case finisher she is looking for bed In my clinical opinion patient need continued inpatient hospitalization for safe discharge Time Spent With Patient Time: Total time managing care of this patient today ____ minutes. Quality Stroke Does the patient have a stroke diagnosis?: No VTE Prior VTE?: No VTE Risk Level:: Medical - moderate - high VTE Device Contraindication: Treatment Not Indicated VTE Drug Contraindication: Treatment Not Indicated
[2022-08-20] MEDS: Morphine Sulfate/NS 100 MG/100 ML PLAST..BAG IVCONT (13:42)
--- NOTE | 2022-08-20 14:04 | PC.NURSE ---
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
--- NOTE | 2022-08-20 14:19 | MHC.CM.PN ---
PATIENT TO DC TO [facility] Tuesday08/21/22 DAUGHTER (IN ROOM), RN, AND HOSPITALIST AWARE.
[2022-08-21] VITALS (14 sets, daily range): BP systolic 109–135; BP diastolic 56–70; PULSE 73–78; RESP 17–18; TEMP 36–36.3; O2SAT 94–97
[2022-08-21] MEDS: Morphine Sulfate/NS 100 MG/100 ML PLAST..BAG 6 MG IVCONT ×2 (09:41→21:38)
--- NOTE | 2022-08-21 13:04 | MHC.CM.PN ---
[facility] RECEIVED A CALL THIS MORNING FROM PTS DAUGHTER WANTING TO KNOW WHAT TIME THE PT WOULD TRANSFER TO [facility] CM INFORMED HER SHE WOULD BE CALLED ONCE A TIME WAS KNOWN [facility] HAS NOT BEEN ABLE TO REACH THE SNF CM SENT SEVERAL MESSAGES TO [facility] TO ARRANGE A TRANSFER TIME THERE HAS BEEN NO RESPONSE [facility] CALLED THE FACILITY TWICE AND SPOKE TO SEVERAL DIFFERENT PEOPLE WHO ALL SAY THEY DO NOT HAVE PAPERWORK FOR THIS PT ALTHOUGH SHE WAS ACCEPTED YESTERDAY AND LIAISON HAD INDICATED SHE COULD HAVE BEEN PRE-BOOKED [facility] CALLED [facility] [phone], THEY INDICATED THE ADMISSIONS OFFICE FOR [facility] IS OFF SITE AND PROVIDED A DIFFERENT PHONE NUMBER [phone]. CM LEFT A MESSAGE AT THIS NUMBER
--- NOTE | 2022-08-21 13:48 | P.PNIM_ITS ---
Subjective Subjective Date of Service: 08/21/22 Interval History: Continues to require continuous IV morphine at 6 milligrams/hour. Minimally responsive Review of Systems Unable to assess secondary to limited responsiveness Physical Exam Vital Signs: Vital Signs: Last Vital Signs Temp 96.8 F 08/21/22 08:00 Pulse 76 08/21/22 08:00 Resp 18 08/21/22 12:00 BP 120/56 L 08/21/22 08:00 Pulse Ox 97 08/21/22 08:00 O2 Del Method 08/21/22 08:00 BMI result Body Mass Index 25.7 Const: Other: Somnolent but arousable responsive simple answers Resp: Other: Clear to auscultation bilaterally no rales rhonchi or wheezes Cardio: Other: No S4; positive S1-S2; no S3 murmurs rubs or gallops GI: Other: Soft diffusely tender without rebound Extrem: Other: No edema bilaterally Objective Data Active Medications Morphine Sulfate (Morphine Sulfate/Ns) 100 mg in 100 mls @ 0 mls/hr IVCONT .Q0M [facility]; Protocol Last Admin: 08/21/22 09:41 Dose: 6 mg/hr, 6 mls/hr Documented By: BALDOMERO Lorazepam (Lorazepam 2 Mg/Ml Vial) 1 mg IVPUSH Q2H PRN PRN Reason: anxiety/restlessness Morphine Sulfate (Morphine Sulfate 4 Mg/Ml Cartridge) 4 mg IVPUSH Q4H PRN; Protocol PRN Reason: Pain, Severe (Pain Scale 7-10) Last Admin: 08/19/22 06:08 Dose: 4 mg Documented By: AUGUSTO Ondansetron HCl (Ondansetron Hcl 4 Mg/2 Ml Vial) 4 mg IVPUSH Q8H PRN PRN Reason: Nausea and Vomiting Sodium Chloride (0.9 % Sodium Chloride Flush 3 Ml Syringe) [facility] Last Admin: 08/21/22 09:03 Dose: Not Given Documented By: BALDOMERO Non-Admin Reason: IV Running Assessment and Plan (1) Adenocarcinoma of pancreas: Status: Acute Plan 76-year-old female with past medical history of insulin-dependent diabetes mellitus, anxiety disorder, hyperlipidemia, nonischemic cardiomyopathy was admitted to [facility] in April, and was noted to have an ill-defined 1.2 cm lesion at the pancreatic neck body and tail and subsequently diagnosed to have metastatic pancreatic cancer, patient was at home with hospice on comfort measures only since patient lives alone and daughter was unable to take care of herself she was brought in to [facility]. 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 Marti Miguel [phone] In my clinical opinion patient need continued inpatient hospitalization for safe discharge Time Spent With Patient Time: Total time managing care of this patient today ____ minutes. Quality Stroke Does the patient have a stroke diagnosis?: No VTE Prior VTE?: No VTE Risk Level:: Medical - moderate - high VTE Device Contraindication: Treatment Not Indicated VTE Drug Contraindication: Treatment Not Indicated
--- NOTE | 2022-08-21 16:22 | PC.NURSE ---
Patient's morpine sulfate IV cont. bag was supposed to be changed last night 2/3 at 9pm , which was its expiry time but I found this morning still running. I stopped, wasted the amount left, informed the pharmacy and hang a new bag. The current bag that is running expires tonight at 9:20pm.
[2022-08-22] VITALS (12 sets, daily range): BP systolic 115–129; BP diastolic 58–74; PULSE 68–82; RESP 14–18; TEMP 36–36.4; O2SAT 98–99
--- NOTE | 2022-08-22 00:08 | PC.NURSE ---
223 witnessed rate increased by primary RN to 7 mg/h
--- NOTE | 2022-08-22 00:48 | PC.NURSE ---
at 2137 bag change witnessed
[2022-08-22] MEDS: LORazepam 2 MG/ML VIAL 1 MG IVPUSH (06:36)
--- NOTE | 2022-08-22 12:30 | P.PNIM_ITS ---
Subjective Subjective Date of Service: 08/22/22 Interval History: No acute events overnight. Comfortable on morphine drip at 7 mg an hour Review of Systems Unable to assess secondary to limited responsiveness Physical Exam Vital Signs: Vital Signs: Last Vital Signs Temp 96.8 F 08/22/22 08:00 Pulse 68 08/22/22 08:00 Resp 16 08/22/22 08:00 BP 129/74 08/22/22 08:00 Pulse Ox 99 08/22/22 08:00 O2 Del Method 08/22/22 08:00 BMI result Body Mass Index 25.7 Const: Other: Somnolent but arousable responsive simple answers Resp: Other: Clear to auscultation bilaterally no rales rhonchi or wheezes Cardio: Other: No S4; positive S1-S2; no S3 murmurs rubs or gallops GI: Other: Soft diffusely tender without rebound Extrem: Other: No edema bilaterally Objective Data Active Medications Morphine Sulfate (Morphine Sulfate/Ns) 100 mg in 100 mls @ 0 mls/hr IVCONT .Q0M [facility]; Protocol Last Infusion: 08/21/22 22:39 Dose: 7 mg/hr, 7 mls/hr Documented By: JEANMARIE Lorazepam (Lorazepam 2 Mg/Ml Vial) 1 mg IVPUSH Q2H PRN PRN Reason: anxiety/restlessness Last Admin: 08/22/22 06:36 Dose: 1 mg Documented By: JEANMARIE Morphine Sulfate (Morphine Sulfate 4 Mg/Ml Cartridge) 4 mg IVPUSH Q4H PRN; Protocol PRN Reason: Pain, Severe (Pain Scale 7-10) Last Admin: 08/19/22 06:08 Dose: 4 mg Documented By: AUGUSTO Ondansetron HCl (Ondansetron Hcl 4 Mg/2 Ml Vial) 4 mg IVPUSH Q8H PRN PRN Reason: Nausea and Vomiting Sodium Chloride (0.9 % Sodium Chloride Flush 3 Ml Syringe) 3 ml IVFLUSH [facility] Last Admin: 08/22/22 09:12 Dose: Not Given Documented By: BALDOMERO Non-Admin Reason: IV Running Assessment and Plan (1) Adenocarcinoma of pancreas: Status: Acute Plan 76-year-old female with past medical history of insulin-dependent diabetes mellitus, anxiety disorder, hyperlipidemia, nonischemic cardiomyopathy was admitted to [facility] in April, and was noted to have an ill-defined 1.2 cm lesion at the pancreatic neck body and tail and subsequently diagnosed to have metastatic pancreatic cancer, patient was at home with hospice on comfort measures only since patient lives alone and daughter was unable to take care of herself she was brought in to [facility]. Initially improved but now requiring morphine drip at 6 mg per in our. 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 to facilitate discharge to long-term care Marti Miguel [phone] In my clinical opinion patient need continued inpatient hospitalization for safe discharge Time Spent With Patient Time: Total time managing care of this patient today ____ minutes. Quality Stroke Does the patient have a stroke diagnosis?: No VTE Prior VTE?: No VTE Risk Level:: Medical - moderate - high VTE Device Contraindication: Treatment Not Indicated VTE Drug Contraindication: Treatment Not Indicated
[2022-08-22] MEDS: fentaNYL 100 MCG PATCH.TD72 TRANSDERMA (13:58)
[2022-08-22] MEDS: Morphine Sulfate/NS 100 MG/100 ML PLAST..BAG 7 MG IVCONT (14:56)
[2022-08-23] VITALS (13 sets, daily range): BP systolic 100–135; BP diastolic 51–60; PULSE 70–86; RESP 10–18; TEMP 36.7–36.8; O2SAT 95–100
[2022-08-23] MEDS: Morphine Sulfate/NS 100 MG/100 ML PLAST..BAG 7 MG IVCONT (05:31)
--- NOTE | 2022-08-23 05:48 | PC.NURSE ---
Morphine PRODUCT ADVISOR on continuously, baged consumed and changed with witnessed RN at 0530, pt is arousable to touch, seen sleeping comfortable most of the night.
--- NOTE | 2022-08-23 12:28 | MHC.CM.PN ---
PER MD ROUNDS, PLAN IS FOR PATIENT TO REMAIN TONIGHT AND LIKELY DC [facility]
--- NOTE | 2022-08-23 13:25 | HO.PM.IMPN ---
Subjective Subjective Date of Service: 08/23/22 Interval History: Morphine drip weaned off. Pain control with Duragesic patch thus far. Not had need for oxycodone Review of Systems Unable to obtain Physical Exam Vital Signs: Vital Signs: Last Vital Signs Temp 97.5 F 08/22/22 16:00 Pulse 70 08/23/22 05:14 Resp 12 08/23/22 12:00 BP 115/58 L 08/22/22 16:00 Pulse Ox 98 08/22/22 16:00 O2 Del Method 08/22/22 16:00 BMI result Body Mass Index 25.7 Const: Other: Somnolent but arousable responsive simple answers Resp: Other: Clear to auscultation bilaterally no rales rhonchi or wheezes Cardio: Other: No S4; positive S1-S2; no S3 murmurs rubs or gallops GI: Other: Soft diffusely tender without rebound Extrem: Other: No edema bilaterally Objective Data Active Medications Fentanyl (Fentanyl 100 Mcg Patch.Td72) 100 mcg TRANSDERMA Q72H [facility] Last Admin: 08/22/22 13:58 Dose: 100 mcg Documented By: BALDOMERO Morphine Sulfate (Morphine Sulfate/Ns) 100 mg in 100 mls @ 0 mls/hr IVCONT .Q0M [facility]; Protocol Last Admin: 08/23/22 05:31 Dose: 7 mg/hr, 7 mls/hr Documented By: ARJUN Lorazepam (Lorazepam 2 Mg/Ml Vial) 1 mg IVPUSH Q2H PRN PRN Reason: anxiety/restlessness Last Admin: 08/22/22 06:36 Dose: 1 mg Documented By: JEANMARIE Morphine Sulfate (Morphine Sulfate 4 Mg/Ml Cartridge) 4 mg IVPUSH Q4H PRN; Protocol PRN Reason: Pain, Severe (Pain Scale 7-10) Last Admin: 08/19/22 06:08 Dose: 4 mg Documented By: AUGUSTO Ondansetron HCl (Ondansetron Hcl 4 Mg/2 Ml Vial) 4 mg IVPUSH Q8H PRN PRN Reason: Nausea and Vomiting Oxycodone HCl (Oxycodone Hcl Immed Release 5 Mg Tablet) 10 mg PO Q3H PRN PRN Reason: Pain, Severe (Pain Scale 7-10) Sodium Chloride (0.9 % Sodium Chloride Flush 3 Ml Syringe) 3 ml IVFLUSH Q[facility] Last Admin: 08/23/22 07:20 Dose: Not Given Documented By: AUNG Non-Admin Reason: IV Running Assessment and Plan (1) Adenocarcinoma of pancreas: Status: Acute Plan 76-year-old female with past medical history of insulin-dependent diabetes mellitus, anxiety disorder, hyperlipidemia, nonischemic cardiomyopathy was admitted to [facility] in April, and was noted to have an ill-defined 1.2 cm lesion at the pancreatic neck body and tail and subsequently diagnosed to have metastatic pancreatic cancer, patient was at home with hospice on comfort measures only since patient lives alone and daughter was unable to take care of herself she was brought in to [facility]. Initially improved but now requiring morphine drip at 6 mg per in our. 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 oxycodone -will observe 24 hours to ensure adequate pain control Marti Miguel [phone]... Discussed at length with Marti this morning In my clinical opinion patient need continued inpatient hospitalization for safe discharge Time Spent With Patient Time: Total time managing care of this patient today ____ minutes. Quality Stroke Does the patient have a stroke diagnosis?: No VTE Prior VTE?: No VTE Risk Level:: Medical - moderate - high VTE Device Contraindication: Treatment Not Indicated VTE Drug Contraindication: Treatment Not Indicated
[2022-08-24] MEDS: oxyCODONE HCl Immed Release 5 MG TABLET 10 MG PO ×3 (00:59→08:30)
[2022-08-24 07:23] VITALS: RESP 12
[2022-08-24] MEDS: 0.9 % Sodium Chloride Flush 3 ML SYRINGE IVFLUSH (07:44)
--- NOTE | 2022-08-24 09:37 | MHC.CM.PN ---
Pt has authorization to transfer to [facility] today at 11:30 via [facility] for CIVIL DESIGN TECHNICIAN care. Dtr/HCP Marti called and will meet pt at facility to assist with admission process.
[2022-08-24] MEDS: Morphine Sulfate 4 MG/ML CARTRIDGE IVPUSH (11:01)
--- NOTE | 2022-08-24 11:05 | P.DS_ITS ---
DS: Providers Provider Date of Service: 08/24/22 Date of admission: 08/18/22 14:54 Date of discharge: 08/24/22 Primary care physician: Adam Woodson MD DS: Diagnosis Discharge Diagnosis (1) Adenocarcinoma of pancreas: Status: Acute DS: Summary Hospital Course Hospital Course: 76-year-old female with pertinent history of pancreatic cancer with metastasis who was brought by EMS as daughter is unable to take care of her at home.? Patient is on home hospice and daughter states that patient has been drowsy and hospice not eaten anything in the last 2 days.? The daughter states that patient requires 247 care and she only has a PC in the morning.? The patient requires complete nursing care which daughter is unable to provider home and hence she was sent to the ER.? Goal is comfort care at this point.? The daughter does not want any workup on treatment.? Unable to obtain any history from the patient. Admitted to general medical floor on morphine drip which was titrated. Patient stable; needs to be transferred to facility for hospice. Current pain regimen developed by pharmacy to transition from drip to oral and topical. This regimen can be modified as per receiving facility Time Spent with Patient Time attestation: Total time managing care of this patient today ____ minutes. Discharge coordination time: Greater than 30 minutes Quality: Safe Use of Opioids Does Pt have an Active Cancer Diagnosis on the Problem List?: Yes Opioid Measure Date for [facility] Report: 07/25/22 Opioid Measure Time for [facility] Report: 11:08 Quality: Stroke Does the patient have a stroke diagnosis?: No Physical Exam Vital Signs: Vital Signs: Last Vital Signs Temp 98.0 F 08/23/22 19:33 Pulse 86 08/23/22 19:33 Resp 12 08/24/22 07:23 BP 100/51 L 08/23/22 19:33 Pulse Ox 95 08/23/22 19:33 O2 Del Method 08/23/22 19:33 BMI result Body Mass Index 25.7 Const: Other: Somnolent but arousable responsive simple answers Resp: Other: Clear to auscultation bilaterally no rales rhonchi or wheezes Cardio: Other: No S4; positive S1-S2; no S3 murmurs rubs or gallops GI: Other: Soft diffusely tender without rebound Extrem: Other: No edema bilaterally Discharge Plan Discharge Patient Disposition: Xfer LTC Discharge Diagnosis: Adenocarcinoma the pancreas Referrals: Adam Woodson MD [Primary Care Provider] - 1 Week Discharge Medications: New fentanyl 100 mcg/hr Patch 72 Hour 100 mcg transdermal Q72H Qty: 10 0RF Rx Instructions: Partial Fill upon patient request. oxycodone 5 mg Tablet 10 mg PO Q3H PRN (Reason: Pain, Severe (Pain Scale 7-10)) Qty: 56 0RF Rx Instructions: Partial Fill upon patient request. Discontinued (DME) pen needle, diabetic [BD Cori 2nd Gen Pen Needle] 32 gauge x 5/32 needle See Rx Instructions .MEDSUPPLY Qty: 100 4RF Rx Instructions: once a day docusate sodium 100 mg capsule 100 mg PO BID PRN (Reason: constipation) 30 Days Qty: 60 0RF trazodone 50 mg tablet 100 mg PO BEDTIME Qty: 60 3RF fluticasone propionate 50 mcg/actuation spray,suspension 2 spray intranasal DAILY PRN (Reason: allergy symptoms) Qty: 16 5RF Rx Instructions: administer into each nostril Trulicity 3 mg/0.5 mL pen injector 3 mg subcut QWEEK 90 Days Qty: 6.5 1RF atorvastatin 80 mg tablet 80 mg PO BEDTIME 30 Days Qty: 30 11RF Hold Instructions: Doctor's Order calcium carbonate-vitamin D3 [Oyster Shell Calcium-Vit D3] 500 mg-5 mcg (200 unit) tablet 1 tab PO BID Qty: 60 2RF dicyclomine 20 mg tablet 20 mg PO QID PRN (Reason: Abdominal Discomfort) Qty: 1 0RF carvedilol 6.25 mg tablet 6.25 mg PO BID Qty: 60 5RF Rx Instructions: must administer with a meal/food ezetimibe 10 mg tablet 10 mg PO DAILY Qty: 30 1RF ondansetron 4 mg tablet,disintegrating 4 mg PO Q8H PRN (Reason: nausea and vomiting) 15 Days Qty: 45 1RF oxycodone 5 mg tablet 5 mg PO Q6-8H PRN (Reason: pain) Qty: 20 0RF Rx Instructions: Partial Fill upon patient request. folic acid 1 mg tablet 1 mg PO DAILY Qty: 30 1RF Trulance 3 mg tablet 3 mg PO DAILY Qty: 30 0RF insulin degludec [Tresiba FlexTouch U-100] 100 unit/mL (3 mL) insulin pen 30 unit subcut BEDTIME Qty: 15 2RF famotidine 20 mg tablet 40 mg PO DAILY Qty: 180 0RF tizanidine 2 mg tablet 2 mg PO BEDTIME PRN (Reason: Muscle Spasm) Rx Instructions: start with 1/2 tab as medication can cause sedation metformin 500 mg tablet extended release 24hr 500 mg PO BIDWM amlodipine 5 mg Tablet 5 mg PO DAILY Qty: 30 0RF Hold Instructions: Doctor's Order Protocol: Hold for SBP< HOLD for SBP < : 90 sennosides 8.6 mg tablet 17.2 mg PO DAILY PRN (Reason: Constipation) acetaminophen 500 mg tablet 500 mg PO Q8H PRN (Reason: fever) 30 Days Qty: 90 3RF (DME) FreeStyle Lite Strips Strip See Rx Instructions .Route Qty: 100 11RF Rx Instructions: As directed two times a day albuterol sulfate 2.5 mg /3 mL (0.083 %) solution for nebulization 2.5 mg continuous nebulization Q6H PRN (Reason: shortness of breath or wheezing) 30 Days Qty: 360 5RF (DME) HUMIDIFIER See Rx Instructions .Route .MEDSUPPLY Qty: 1 0RF Rx Instructions: As directed furosemide 40 mg tablet 40 mg PO DAILY memantine 10 mg tablet 10 mg PO BID (DME) blood-glucose meter [FreeStyle Exmore Lite] Kit See Rx Instructions .Route Rx Instructions: As directed twice a day albuterol sulfate [ProAir HFA] 90 mcg/actuation HFA aerosol inhaler 2 puff inhalation Q6H PRN (Reason: Shortness Of Breath) 30 Days Qty: 8.5 11RF Breo Ellipta 100-25 mcg/dose blister with device 1 inh inhalation DAILY 30 Days Qty: 60 11RF escitalopram oxalate 20 mg tablet 20 mg PO DAILY gabapentin 300 mg capsule 300 mg PO BEDTIME 30 Days Qty: 30 6RF secukinumab 150 mg/mL pen injector 150 mg subcut Q4W Qty: 2 1RF clotrimazole-betamethasone 1-0.05 % cream 1 appl topical BID PRN (Reason: itching) 7 Days Qty: 45 0RF Discharge Orders: Discharge Order (Routine); Ordered 08/24/22 Ordered By: Archie Walker Diet: Advance to usual diet Activity on Discharge: As tolerated Stand Alone Forms: Patient Portal Discharge page Care Plan Goals: Transfer on Duragesic patch 100 mcg q.3 days and oxycodone 10 mg q.3 hours; titrate as indicated Health Concerns: Comfort care/hospice Plan of Treatment: As per receiving facility Assessment: See discharge summary
[2022-08-24 11:37] VITALS: RESP 12
== END 2022-08-24 12:30 | DRG 951 ==
LOC: HO.ED 19:47 → HO.EDOVER 20:43 → HO.S3 08-19 14:23
PROVIDERS: Admitting Provider Student in an Organized Health Care Education/Training Program; Emergency Provider Emergency Medicine; PCP Internal Medicine; Visit Provider Hospitalist
DX: Z51.5 Encounter for palliative care (principal); C25.0 Malignant neoplasm of head of pancreas; C78.7 Secondary malignant neoplasm of liver and intrahepatic bile duct; E78.5 Hyperlipidemia, unspecified; L40.50 Arthropathic psoriasis, unspecified; Z20.822 Contact with and (suspected) exposure to COVID-19; Z95.810 Presence of automatic (implantable) cardiac defibrillator; Z88.0 Allergy status to penicillin; Z88.5 Allergy status to narcotic agent; Z88.6 Allergy status to analgesic agent
CPT/HCPCS: 71046; 87635; 99285; J2060; J2270

== ENCOUNTER 2022-09-01 17:59 | Emergency (ER) | payer OTHER, SELFPAY ==
[2022-09-01 18:11] VITALS: BP 118/69; PULSE 90; O2SAT 97
--- NOTE | 2022-09-01 18:16 | ED_ITS ---
HPI - General Adult General Chief complaint: Abdominal Pain Stated complaint: PAIN EVAL PER FAM REQ, FROM SNF PER EMS Time Seen by Provider: 09/01/22 18:14 Source: family (Daughter), EMS, RN notes reviewed and old records reviewed Mode of arrival: EMS Limitations: altered mental status History of Present Illness HPI narrative: 76-year-old female with pertinent history of pancreatic cancer with metastasis who was brought by EMS from senior living as per daughter request patient was recently hospitalized and discharged to senior living.? Patient was on home hospice and daughter states that patient has an inadequate pain control however patient was given fentanyl at the senior living.? Daughter is waiting for the hospice paper workup to sign, Patient cannot give history all history was obtained from previous admission and senior living note and the daughter. Related Data Previous Rx's Medication Instructions Recorded fentanyl 100 mcg/hr transdermal 100 mcg transdermal Q72H #10 ea 08/24/22 patch oxycodone 5 mg tablet 10 mg PO Q3H PRN Pain, Severe 08/24/22 (Pain Scale 7-10) #56 tabs Allergies Allergy/AdvReac Type Severity Reaction Status Date / Time aspirin [Aspirin] Allergy Severe STOMACH Verified 06/06/22 21:33 UPSET, stomach pain baclofen Allergy Severe dizziness Verified 06/06/22 21:33 oxycodone [Percocet] Allergy Severe itchiness Verified 06/06/22 21:33 Penicillins Allergy Severe ANAPHYLAXIS Verified 06/06/22 21:33 Review of Systems Review of Systems: Yes Unobtainable due to mental condition PMFSH Past Medical History Medical History Adenocarcinoma of pancreas Admission for palliative care Anxiety Asthma Benign essential hypertension Cardiomyopathy Chronic kidney disease (CKD), stage III (moderate) Constipation Dementia Depression Diabetes mellitus Dyslipidemia Dysphagia GERD without esophagitis HLD (hyperlipidemia) Hyperparathyroidism Hypertension Insomnia Insomnia LBBB (left bundle branch block) Lesion of liver Low Back Pain Lumbar spondylosis Mixed stress and urge urinary incontinence Multinodular thyroid NICM (nonischemic cardiomyopathy) (Unknown) Non-toxic multinodular goiter Obesity (BMI 30-39.9) LISSA (obstructive sleep apnea) Psoriatic arthritis Pure hypercholesterolemia Sinus tachycardia T2DM (type 2 diabetes mellitus) 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 2 diabetes mellitus with other diabetic kidney complication UTI (urinary tract infection) UTI (urinary tract infection) Vitamin D deficiency Surgical History History of section History of knee replacement procedure of right knee History of left knee replacement History of partial hysterectomy History of repair of rotator cuff History of shoulder surgery History of surgery Family History Family History Father Prostate cancer Mouth cancer Mother Type 2 diabetes mellitus Hyperlipidemia Diabetes Hypertension Other Mental health problem Social History Social History Household Members: None Housing: Apartment Do you presently have visiting nurse or other home services: Yes ([employer] partial) Alcohol intake: current Alcohol intake frequency: holidays/special occasions only Patient Tobacco Use Status: Never used Tobacco e-Cigarette/Vaping Use: Never Used Second Hand Smoke Exposure: No Advance Directives: Yes Advance Directives on File: Yes Advance Directives Date on File: 08/25/22 service: No Current occupational status: retired Cognitive needs: No Hearing needs: No Vision needs: Yes Physical Exam ED Vital Signs: Vital Signs - 24 hr 09/01/22 18:31 Temperature 97.7 F Pulse Rate 95 Respiratory Rate 12 Blood Pressure 123/70 Pulse Oximetry 94 Oxygen Delivery Method Room Air BMI result Body Mass Index 26.2 Vital signs have been reviewed as appeared to be correct. Blood pressure normal. Heart rate normal. Respiration rate normal. Temperature normal. Oxygen saturation normal. Appearance: Jaundice, awake regard examiner but not communicating with the examiner, appear in no distress or apparent pain. Head: Normal external exam. Normocephalic. Atraumatic. No Mensah signs noted. No raccoon eyes noted Eyes: PERRLA. EOMI. Conjunctiva and sclera normal. Eyelids normal. ENT: TM's Normal. Pharynx normal. Uvula midline. Moist mucous membranes. No trismus noted. No drooling noted. No muffled voice noted. Neck: Normal inspection. Neck supple. FROM. No adenopathy. Thyroid Normal. No meningeal signs. No neck mass noted. CVS: Normal heart rate and rhythm. Heart sound normal. No murmurs noted. Pulses normal throughout. Respiratory: No respiratory distress. Painless inspiration. Breath sounds normal. No wheezes/rales/rhonchi noted. Chest nontender. No accessory muscle usage noted or decreased air movement noted. Abdomen: Distended, diffuse tenderness to touch. Bowel sounds normal in all 4 quadrants. No distention noted. No organomegaly noted. No visible injury noted. Back: No CVA tenderness. Full range of motion noted. Skin: Skin warm and dry. Normal skin color. Normal skin turgor. No rashes/lesions/lacerations noted. Extremities: No lower extremity edema. Extremities exhibit normal range of motion. Extremities nontender. Neuro: Oriented X 3. Cranial nerve exam: II-XII are grossly intact No motor deficit. No sensory deficit. Reflexes normal. Course Course Course Narrative: After discussing the case with the daughter in front of the patient, patient is an advanced metastatic pancreatic cancer victim impending signed official paper for hospice, daughter is concerned of inadequate pain control and dehydration. Patient use fentanyl at the senior living will prescribe Dilaudid to be used in between the fentanyl, also will prescribe Zofran if needed for nausea or vomiting. Medical Decision Making Differential Diagnosis Differential Diagnoses: The differential diagnosis associated with the presentation includes Advanced metastatic pancreatic cancer, pain management, palliative treatment regimen. Discharge Plan Discharge Clinical Impression: Adenocarcinoma of pancreas, Comfort measures only status Patient Disposition: Xfer [facility] Additional Instructions: Dilaudid 2 mg by mouth every 6 hours if needed for pain. Zofran 4 mg sublingually every 6 hours if needed for nausea or vomiting. Prescriptions: No Action fentanyl 100 mcg/hr Patch 72 Hour 100 mcg transdermal Q72H Qty: 10 0RF Rx Instructions: Partial Fill upon patient request. oxycodone 5 mg Tablet 10 mg PO Q3H PRN (Reason: Pain, Severe (Pain Scale 7-10)) Qty: 56 0RF Rx Instructions: Partial Fill upon patient request.
[2022-09-01 18:31] VITALS: BP 123/70; PULSE 95; RESP 12; TEMP 36.5; O2SAT 94; BMI 26.2
--- NOTE | 2022-09-01 19:01 | PC.NURSE ---
report given to JAYA Landeros
--- NOTE | 2022-09-01 19:44 | MHC.EDTECH ---
Call out to [facility] @1941 to book bls transport to [facility] dispatch gave an ETA of 30-45 minutes
[2022-09-01 21:55] VITALS: BP 116/67; PULSE 89; RESP 10; O2SAT 96
[2022-09-01] MEDS: HYDROmorphone HCl 2 MG TABLET PO (22:51)
== END 2022-09-01 23:02 | disposition skilled nursing facility (03) ==
PROVIDERS: Emergency Provider Emergency Medicine
DX: C25.0 Malignant neoplasm of head of pancreas (principal); E11.22 Type 2 diabetes mellitus with diabetic chronic kidney disease; I12.9 Hypertensive chronic kidney disease with stage 1 through stage 4 chronic kidney disease, or unspecified chronic kidney disease; N18.30 Chronic kidney disease, stage 3 unspecified; E78.5 Hyperlipidemia, unspecified; Z51.5 Encounter for palliative care
CPT/HCPCS: 99283

== ENCOUNTER 2022-09-04 15:28 | Inpatient (IN) | payer OTHER, SELFPAY ==
--- NOTE | ~2022-09-04 | XR_ITS ---
EXAMINATION: XR chest 1V CLINICAL INFORMATION: Nasogastric tube. COMPARISON: Prior chest x-ray 08/18/2022. TECHNIQUE: XR chest 1V Tubes and lines: Nasogastric tube is looping within the distal esophagus has not passed below the diaphragm. There is cardiac device with its leads projecting over the cardiac base. Lungs and pleura: There is opacification at the left lung base possibly mild infiltrates and/or atelectasis. Blunting of left costophrenic angle suggesting small left pleural effusion. Heart and mediastinum: The mediastinum is within normal limits.. Bones/soft tissue: Right shoulder prosthesis in place unchanged. Old fracture of the distal right clavicle. XR/XR chest 1V IMPRESSION: * Nasogastric tube is looping within the distal esophagus, this has not passed below the diaphragm. Would recommend REPOSITIONING. * Exam otherwise unchanged, mild opacification at left lung base possibly mild infiltrates and/or atelectasis. * Blunting of left costophrenic angle suggesting small left pleural effusion. * Old fracture of distal right clavicle. (Referring physician staff is being called, to be alerted of the above findings and recommendations.) VIANNEY AJ
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
[2022-09-04 15:43] VITALS: BP 130/76; PULSE 108; O2SAT 97
[2022-09-04 16:07] VITALS: BP 110/64; PULSE 98; RESP 16; TEMP 36.8; O2SAT 95; BMI 31.1
[2022-09-04] MEDS: Ondansetron ODT 8 MG TAB.RAPDIS TRANSLINGU (16:22)
[2022-09-04] MEDS: Morphine Sulfate Oral Sol 10 MG/5 ML SOLUTION 20 MG PO (16:22)
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
[2022-09-04 20:00] VITALS: BP 107/56; PULSE 95; RESP 15; TEMP 36.4; O2SAT 93
[2022-09-04] MEDS: HYDROmorphone HCl 2 MG/ML VIAL IM (20:12)
--- NOTE | 2022-09-04 20:35 | PC.NURSE ---
PT CONTINUES TO C/O SEVERE PAIN, PA NOTIFIED. DAUGHTER NOW AT BEDSIDE.
[2022-09-04 21:51] VITALS: BP 111/54; PULSE 94; RESP 13; TEMP 36.6; O2SAT 92
[2022-09-04 22:11] LABS: COVID-19 Test Negative (Negative); IDNOW Serial# 6674DD1D
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
[2022-09-05 00:52] VITALS: BP 136/73; PULSE 95; RESP 14; TEMP 36.6; O2SAT 96
--- NOTE | 2022-09-05 00:53 | MHC.EDTECH ---
PT soiled with vomit and urine. PT give bed bath/pericare. Pt gown and bed linen changed. Pt given warm blanket and call alonso in reach
[2022-09-05 04:11] VITALS: BP 132/66; PULSE 95; RESP 15; TEMP 36.7; O2SAT 96
[2022-09-05 05:35] VITALS: BP 123/64; PULSE 97; RESP 15; TEMP 36.7; O2SAT 95
--- NOTE | 2022-09-05 05:36 | MHC.EDTECH ---
PT given Pericare. Bedlinen changed. Pt repositioned to left side. Call alonso in reach/ warm blanket given
--- NOTE | 2022-09-05 08:11 | MHC.EDTECH ---
pt incontinent, washed pt up with another tech ronen, amy care performed. pt linens changed, pt repositioned in bed.
[2022-09-05] MEDS: Morphine Sulfate Oral Sol 10 MG/5 ML SOLUTION 20 MG PO ×3 (08:34→23:41)
[2022-09-05] MEDS: LORazepam 0.5 MG TABLET PO ×3 (08:34→23:42)
--- NOTE | 2022-09-05 09:18 | PHA.MEDREC ---
Pharmacy Consult ? Medication Reconciliation Pharmacy has completed the medication reconciliation. Med rec [facility]
[2022-09-05 09:37] VITALS: BP 127/66; PULSE 97; RESP 14; TEMP 36.5; O2SAT 98
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
--- NOTE | 2022-09-05 13:54 | MHC.EDTECH ---
pt was incontinent, pt washed up with another radiation technician Rebeka , placed patient in brief new linens on bed.
--- NOTE | 2022-09-05 17:47 | PC.NURSE ---
PT HAS BEEN CHANGED AND REPOSITIONED THROUGH OUT SHIFT. NEEDS BEING MET CASE MANAGEMENT IS WORKING ON FINDING REHAB. DAUGHTER IN TO VISIT.
[2022-09-05 19:37] VITALS: RESP 18
--- NOTE | 2022-09-05 20:15 | PC.NURSE ---
[facility] called and was updated on pt status. pt sleeping no s/s of pain and is now comfortable per shift report.
[2022-09-05] MEDS: traZODone HCL 50 MG TABLET PO (21:38)
[2022-09-05] MEDS: Ondansetron ODT 8 MG TAB.RAPDIS TRANSLINGU (23:42)
--- NOTE | 2022-09-06 00:02 | PC.NURSE ---
Assumed care for patient at approximately 11:11 pm during transport from ED to overflow. Pt transferred from ED stretcher to hospital bed. Pt responds to Nurse question in romanian by nodding head yes or no. Pt nodded yes to pain and wanting to keep the light on. Nurse medicated pt per Sep. commercial technician placed purewic for comfort to maintain good skin integrity d/t pt is incontinent of urine. RN cleansed face and provided mouth care using oral swab. Pt assisted to R sided of body pillow between legs. Pt nodded yes when asked if pt was comfortable. light in room maintained on to comfort patient. Pt is resting comfortably.
[2022-09-06 00:26] VITALS: BP 103/51; PULSE 96; RESP 13; TEMP 36.9; O2SAT 92
--- NOTE | 2022-09-06 02:46 | PC.NURSE ---
Pt resting quietly no s/sx of respiratory distress noted. No s/sx of pain noted. RR 16.
[2022-09-06] MEDS: Morphine Sulfate Oral Sol 10 MG/5 ML SOLUTION 20 MG PO ×3 (05:22→23:25)
[2022-09-06] MEDS: LORazepam 0.5 MG TABLET PO (05:23)
--- NOTE | 2022-09-06 05:37 | PC.NURSE ---
pt noted to be restless in bed positive facial grimacing stating ay . Rn medicated pt per MAR. Provided mouth care. pt continues to respond to questions with nodding pt placed on Left side of body and light turned off per pt request. Pt resting quietly appears comfortable in bed.
[2022-09-06 06:11] VITALS: BP 110/68; PULSE 95; RESP 14; TEMP 36.2; O2SAT 98
--- NOTE | 2022-09-06 08:47 | MHC.EDTECH ---
patient clean and reposition to right-side. patient comfortable.warm blankets giving.
--- NOTE | 2022-09-06 10:50 | MHC.EDTECH ---
patient reposition to back side , patient clean and dry. gave patient mouth care. pt comfortable .
[2022-09-06 14:38] VITALS: RESP 20
--- NOTE | 2022-09-06 14:52 | MHC.EDTECH ---
patient dry and clean reposition to left side . patient comfortable.
--- NOTE | 2022-09-06 17:48 | PC.NURSE ---
Patient sleeping, respirations 18. turned and and repositioned and changed patient. Patient only had pain with movement.
--- NOTE | 2022-09-06 19:53 | PC.NURSE ---
Incontinent care provided and repositioned. No apparent distress noted, will CTM.
[2022-09-06 20:41] VITALS: BP 132/72; RESP 18
[2022-09-06] MEDS: traZODone HCL 50 MG TABLET PO (20:47)
--- NOTE | 2022-09-06 20:55 | PC.NURSE ---
Addendum entered by Lakia Rutledge 09/06/22 22:16: Pt resting quietly, 4 on the vivas-Ross faces scale. Pt repositioned. Original Note: Pt restless moving around in bed, took purewick out of place. 8 on the faces scale. Medicated per SEP.
--- NOTE | 2022-09-06 23:28 | PC.NURSE ---
Pt more awake at this time. Opening eyes on verbal command. States yes when asked about pain, med given as documented, requesting water. Repositioned.
[2022-09-07 00:06] VITALS: BP 110/55; PULSE 95; RESP 16; TEMP 36.6; O2SAT 95
--- NOTE | 2022-09-07 00:06 | MHC.EDTECH ---
i resumed care 11-7 shift, pt vitals were taken she was repositioned, and her purewick is in place,
[2022-09-07] MEDS: Morphine Sulfate Oral Sol 10 MG/5 ML SOLUTION 20 MG PO ×3 (03:36→16:19)
--- NOTE | 2022-09-07 03:51 | PC.NURSE ---
Pt moaning and grimacing. Medicated per MAR. Incontinent care provided and repositioned.
[2022-09-07 04:26] VITALS: BP 112/60; PULSE 104; RESP 16; TEMP 36.3; O2SAT 95
--- NOTE | 2022-09-07 04:28 | MHC.EDTECH ---
pt was repositioned and new purewick was applied , amy care was done . pt is now comfortable and vitals were taken
[2022-09-07 07:46] VITALS: BP 122/65; PULSE 98; RESP 16; TEMP 36.4; O2SAT 97
[2022-09-07] MEDS: fentaNYL 100 MCG PATCH.TD72 TRANSDERMA (12:35)
--- NOTE | 2022-09-07 13:46 | PC.NURSE ---
pt moaning and grimacing, pain patch applied to SHANTA as documented. pt's family is at her bedside. she refused to eat breakfast. her daughter made attempts to feed her lunch and she refused to eat, she took sips of water. pt resting quietly, no apparent distress.
--- NOTE | 2022-09-07 14:26 | PC.NURSE ---
STAFF MEMBER JOE, FROM [facility] CAME IN TO SEE PT. THIS RN ASKED WHAT THE VISIT IS IN REGARDS TO, JOE STATED I CAN'T DISCLOSE ANY INFORMATION TO YOU. WE MAKE UNANNOUNCED VISITS . JOE WAS ESCORTED TO THE MAIN ED TO SEE THE CHARGE NURSE. NO INFORMATION EXCHANGED.
--- NOTE | 2022-09-07 15:04 | MHC.CM.PN ---
NO BED OFFERS OF THIS NOTE. ADDITIONAL REFERRALS PLACED. ELDER LICENSED PESTICIDE APPLICATOR , JOE, UPDATED WITH PROGRESS. JOE WILL BE IN TOMORROW (09/08/22) TO SPEAK WITH PATIENT. ANY UPDATES CAN BE CALLED INTO JOE AT [phone]
[2022-09-07] MEDS: Ondansetron ODT 8 MG TAB.RAPDIS TRANSLINGU (16:16)
--- NOTE | 2022-09-07 19:40 | PC.NURSE ---
late entry- pt daughter at bedside getting ready to leave. this rn [id number] pt to L side utilizing pillows. pt grimaced and moaned in pain upon repositioning.
[2022-09-07 20:00] VITALS: BP 109/58; PULSE 109; RESP 15; TEMP 36.5; O2SAT 93
--- NOTE | 2022-09-07 20:20 | PC.NURSE ---
late entry- this rn attempted to medicate pt according to mar at this time. pt arousable to name however unable to stay awake at this time. RR 18 nonlabored. unable to medicate pt safely at this time
--- NOTE | 2022-09-07 22:35 | PC.NURSE ---
this rn repositioned pt to R side utilizing pillows at this time. pad and bed linen changed at this time. periwick repositioned. pt awoke to movement and name. unable to stay awake to safely take PO medications at this time. RR 20 nonlabored
[2022-09-08 00:13] VITALS: RESP 16
--- NOTE | 2022-09-08 03:25 | PC.NURSE ---
pt sleeping at this time. this rn repositioned pt to back placing pillow between knees and under each elbow. check pad replaced and periwick in place.
[2022-09-08 05:15] VITALS: BP 103/55; PULSE 88; RESP 13; TEMP 36.4; O2SAT 94
--- NOTE | 2022-09-08 06:40 | PC.NURSE ---
this rn repositioned pt with pillow under R hip. periwick remains in place at this time. pt responds to verbal stimuli. unable to stay awake at this time
[2022-09-08 08:08] VITALS: BP 96/61; PULSE 85; RESP 18; TEMP 36.4; O2SAT 94
--- NOTE | 2022-09-08 08:46 | PC.NURSE ---
Addendum entered by Paulette Rogers RN 09/08/22 10:26: Patient washed up and repositioned to right side. Patient opened eyes with some grimacing with movement. Patient resting comfortably now. Leena SCHNEIDER at bedside to assess patient and speak with patients daughter. All needs met at this time. Original Note: Patient sleeping, not easily arrousable. Patient appears comfortable. Daughter at bedside, per daughter this is a change from patients baseline. Will hold PO medications at this time. VSS. Reposition Q2 hours. All needs met at this time.
--- NOTE | 2022-09-08 11:45 | PC.NURSE ---
THIS RN ASSUMED CARE OF THIS PT AT 1100. PT SLEEPING, NOT EASILY AROUSED. NO MOANING, NO GRIMACING PRESENT. NO SIGNS OF DISCOMFORT OBSERVED, NO APPARENT DISTRESS. PT'S DAUGHTER IS AT HER BEDSIDE. WILL CONTINUE TO OBSERVE.
[2022-09-08 13:44] VITALS: BP 115/55; PULSE 89; RESP 17; TEMP 36.3; O2SAT 93
[2022-09-08] MEDS: Morphine Sulfate Oral Sol 10 MG/5 ML SOLUTION 20 MG PO ×2 (15:21→21:56)
[2022-09-08] MEDS: Ondansetron ODT 8 MG TAB.RAPDIS TRANSLINGU ×2 (15:25→21:56)
--- NOTE | 2022-09-08 16:54 | MHC.CM.ED ---
Per ED staff, patient is minimally responsive, not eating or drinking. Limited urine. Comfortable. Being medicated as needed. No bed offers for hospice at facility. Will assess for [facility] hospice in the morning. CM to follow for d/c needs.
--- NOTE | 2022-09-08 17:26 | MHC.EDTECH ---
this pct assumed care of pt at 1500 ,rounding done ,bed bath given by this pct and rn felicia curtis ,bedding change ,lotion and baby powder apply ,hair comb ,mouth care done ,pt reposition with pillow ,pt open her eyes when rn called her name ,pt daughter at bedside .
--- NOTE | 2022-09-08 18:57 | MHC.EDTECH ---
pt did not eat dinner ,pt sleeping and is comfortable .
--- NOTE | 2022-09-08 21:35 | PC.NURSE ---
Assumed care of pt. at 1900. Pt. sleeping in bed at this time. Pt. acknowledges that light has been turned on but doesn't fully arouse. Pt. attempted to be medicated at 2100. Pt. arousable to name and nods when asked if ok. Pt. doesn't awaken to safely medicate with PO medications. Will continue to monitor.
[2022-09-08 21:48] VITALS: BP 110/58; PULSE 70; RESP 14; TEMP 36.3; O2SAT 93
--- NOTE | 2022-09-08 22:00 | MHC.EDTECH ---
2200 rounding done ,vitals sign ,pt awake when call out her name ,pt ask for water ,drank several tea spoon with 1 :1 assist ,pt was incontinent care given by this pct and rn delia mar and danny change ,pt reposition with pillows between legs and behind back .
--- NOTE | 2022-09-08 22:10 | PC.NURSE ---
Pt. awake with eyes open, reporting pain 8/10 on faces scale. Pt. medicated with liquid morphine and zofran per SEP. Pt. requesting water. Provided to pt. This RN and tech changed bedding, washed up pt. and repositioned in bed. Pt. back to sleep.
[2022-09-09 06:00] VITALS: BP 119/62; PULSE 85; RESP 20; TEMP -12.4; TEMP 9.6; O2SAT 100
[2022-09-09] MEDS: Morphine Sulfate Oral Sol 10 MG/5 ML SOLUTION 20 MG PO ×4 (06:58→22:22)
--- NOTE | 2022-09-09 07:44 | MHC.EDTECH ---
Patient had 50% of ensure and 10% orange juice. patient position on back patient is clean and dry.
--- NOTE | 2022-09-09 07:50 | PC.NURSE ---
Pt drank half of her ensure shake and had her orange juice with assistance.
--- NOTE | 2022-09-09 09:31 | PC.NURSE ---
Spoke with pts daughter for update. She plans to come in today for a visit.
--- NOTE | 2022-09-09 14:08 | MHC.EDTECH ---
patient change and wash , pure wick on . patient had 50% of ensure 50% of water and 100% Juice. 100% pudding.reposition on side.
--- NOTE | 2022-09-09 14:26 | PC.NURSE ---
Pt moaning in pain, agitated. Oral morphine given.
[2022-09-09 17:41] VITALS: BP 138/83; PULSE 98; RESP 16; O2SAT 96
[2022-09-09] MEDS: LORazepam 0.5 MG TABLET PO (17:51)
--- NOTE | 2022-09-09 17:51 | PC.NURSE ---
Pt became increasingly restless trying to get out of bed. Pt cleaned and changed, ativan given. Pt positioned for comfort with pillows. Pt does best drinking with assist from syringe. Will EUGENE
--- NOTE | 2022-09-09 17:53 | MHC.EDTECH ---
Assist nurse with patient care, change of bed pads, boosted patient, and tidy up room.
--- NOTE | 2022-09-09 18:54 | PC.NURSE ---
pt responding to touch by opening eyes briefly. pt drank from straw 1/2 of ensure drink. Eyes closed majority of time, no verbal response at this time.
--- NOTE | 2022-09-09 20:47 | MHC.EDTECH ---
Patient care in changing soiled bed pads and wiping patient clean. Put clean bed pad, reposition patient and changed pillow case.
[2022-09-09] MEDS: traZODone HCL 50 MG TABLET PO (20:53)
[2022-09-09] MEDS: Ondansetron ODT 8 MG TAB.RAPDIS TRANSLINGU (22:18)
--- NOTE | 2022-09-09 22:23 | PC.NURSE ---
Pt is yelling in pain while lying in bed. Pt unable to rate pain but can indicate that she is in pain and location of pain. Pt also complaining that she feels nauseous. Pt medicated for pain and nausea with PRN meds.
[2022-09-10] MEDS: Ondansetron ODT 8 MG TAB.RAPDIS TRANSLINGU ×2 (05:34→09:42)
[2022-09-10] MEDS: Morphine Sulfate Oral Sol 10 MG/5 ML SOLUTION 20 MG PO (05:34)
[2022-09-10 07:46] VITALS: BP 113/65; PULSE 99; RESP 18; TEMP 36.4; O2SAT 98
[2022-09-10] MEDS: LORazepam 0.5 MG TABLET PO (09:42)
--- NOTE | 2022-09-10 11:24 | PC.NURSE ---
patient given PRN ativan and zofran for agitation/vomiting. oral care provided. new bed linen and brissa in place. will monitor patient for signs of pain.
--- NOTE | 2022-09-10 11:55 | PC.NURSE ---
pharmacy called for fentanyl patch
[2022-09-10] MEDS: fentaNYL 100 MCG PATCH.TD72 TRANSDERMA (12:40)
--- NOTE | 2022-09-10 13:03 | MHC.CM.ED ---
Patient remains in ER overflow. Patient discussed with Mary SCHNEIDER. Per Mary, patient will be admitted to hospital. Continue to monitor for d/c needs.
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
[2022-09-10] MEDS: Scopolamine 1.5 MG PATCH.TD.3 EAR-BEHIND (15:02)
[2022-09-10] MEDS: Morphine Sulfate 4 MG/ML CARTRIDGE 2 MG IVPUSH (15:03)
--- NOTE | 2022-09-10 15:25 | MHC.EDTECH ---
Patient cleaned up with JAYA Mas. Patient put in clean hospital gown and bedding changed. Patient repositioned in bed.
[2022-09-10 17:22] VITALS: BP 129/68; PULSE 99; RESP 12; TEMP 36.4; O2SAT 96
[2022-09-10] MEDS: LORazepam 2 MG/ML VIAL 1 MG IVPUSH (17:56)
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
--- NOTE | 2022-09-10 22:44 | PC.NURSE ---
This nurse has communicated with [facility] and was notified to have patient in comfortable care only. This entry writer is monitor her V/S on the equipment monitor phototypesetting.
[2022-09-10 22:45] VITALS: BP 131/67; PULSE 99; RESP 13; TEMP 36.1; O2SAT 94
[2022-09-11] VITALS (12 sets, daily range): BP systolic 106; BP diastolic 62; PULSE 100–106; RESP 12–24; O2SAT 94
[2022-09-11] MEDS: 0.9 % Sodium Chloride Flush 3 ML SYRINGE IVFLUSH ×3 (02:13→15:42)
[2022-09-11] MEDS: Ondansetron ODT 8 MG TAB.RAPDIS TRANSLINGU (04:26)
[2022-09-11] MEDS: Morphine Sulfate 4 MG/ML CARTRIDGE 2 MG IVPUSH ×5 (04:27→17:07)
--- NOTE | 2022-09-11 04:28 | PC.NURSE ---
Pt is screaming and sinus tahcy on the monitor. Non verbal pain assessment was completed and pt was given pain med and zofran due to she was retching. Pt is no longer able to swallow pills due to she is somnolence. Provider is aware.
--- NOTE | 2022-09-11 08:34 | PC.NURSE ---
Patient sleeping is aroused with tactile verbal stimulation is lethargic at baseline, jaundice to skin and sclera noted patient repositioned no distress noted will CTM
--- NOTE | 2022-09-11 11:00 | PC.NURSE ---
pt resting. unable to respond to pain assessment. pt vomited small amount of dark colored emesis- mouth suctioned. Pt VSS on the monitor. Friends visiting. Linens changed
--- NOTE | 2022-09-11 11:09 | PM.EVENT ---
Event Note Date of Service: 09/11/22 Event Note: Comort care for terminally ill with adenocarcinoma of the pancreatitis, patient appear comfortable, continue present care with morphine, ativan PRN for comfort. time 15 minutes Time Spent With Patient Time: Total time managing care of this patient today ____ minutes.
[2022-09-11] MEDS: LORazepam 2 MG/ML VIAL 1 MG IVPUSH ×3 (11:18→19:58)
--- NOTE | 2022-09-11 11:26 | PC.NURSE ---
pt vomited brown emesis, pt medicated for agitation and pain while turning/positioning patient, notified provider asking for ivp zofran, will continue to monitor.
[2022-09-11] MEDS: ondansetron HCL 4 MG/2 ML VIAL IVPUSH ×3 (11:44→21:45)
--- NOTE | 2022-09-11 11:46 | PC.NURSE ---
pt medicated with zofran per order. pt resting. friends at bedside
--- NOTE | 2022-09-11 12:04 | MHC.EDTECH ---
Assisted with changing patients linen and gown. Veronica Huber
--- NOTE | 2022-09-11 13:31 | PC.NURSE ---
pt responsive to painful stimulus only, dr. rueda at bedside due to patient vomiting speak with family, NG attempted x2 with assist of additional nurse- xray performed however NG tube was not correctly placed- pt unable to follow commands to swallow to assist in placing the ng tube- dr. rueda is aware. pt turned/positioned to comfort, pt suctioned/mouth care performed, provider has ordered additional IV medication for nausea and we will give additional pain medications as well.
[2022-09-11] MEDS: Prochlorperazine Edisylate 10 MG/2 ML VIAL 5 MG IVPUSH ×2 (13:37→19:58)
--- NOTE | 2022-09-11 13:39 | PC.NURSE ---
[facility] number [facility]- [phone]
--- NOTE | 2022-09-11 13:50 | PC.NURSE ---
pt medicated with morphine for pain and compazine per order. will continue to monitor
--- NOTE | 2022-09-11 14:02 | PC.NURSE ---
per dr. rueda pt to not have monitoring coordinator on or vitals
--- NOTE | 2022-09-11 15:37 | PC.NURSE ---
pt vomited coffee ground emesis, pt mouth was suctioned, oral care performed, pt then medicated with morphine to turn/position and change linens, upon turning/positioning patient began moaning and respiratory rate increased to 40 with tears coming from pts eye, pt was then medicated with ativan, lungs have rhonchi/rattle sound can be heard upon breathing. will continue to monitor.
--- NOTE | 2022-09-11 17:22 | PC.NURSE ---
patient again vomited coffee ground emesis, pt also incontinent of dark colored stool, prior to performing bed change and turn/position the patient, the patient was medicated with zofran and morphine, family at bedside asking if oxygen would help the patient, this nurse explained to the family that oxygen would not make a difference in patients respiratory status at this point- pt is not exhibiting air hunger at this time and is noted to be comfortable after positing, pt is increasingly jaundice, family is tearful at bedside- daughter aware to notify staff if patient vomits, will continue to monitor.
--- NOTE | 2022-09-11 20:02 | PC.NURSE ---
pt vomited coffee ground emesis, pt medicated with compazine and ativan,family at bedside, will continue to monitor
[2022-09-11] MEDS: Morphine Sulfate 2 MG/ML CARTRIDGE IVPUSH (21:45)
--- NOTE | 2022-09-11 21:49 | PC.NURSE ---
Pt's is resting, somnolence, and family at bedside.
[2022-09-12] VITALS (11 sets, daily range): RESP 12–30; O2SAT 91
--- NOTE | 2022-09-12 | MHC.EDTECH ---
0000 rounding done ,pt sleeping comfortable in bed ,pt daughter just left .
--- NOTE | 2022-09-12 02:10 | MHC.EDTECH ---
0200 rounding done pt reposition on back ,mouth was swab ,pt sleeping .
--- NOTE | 2022-09-12 06:00 | MHC.EDTECH ---
0600 ROUNDING DONE ,PT WAS REPOSITION ON LEFT SIDE ,PILLOWS PLACED UNDER HEELS ,LOTION APPLY TO PT BACK ,MOUTH SWAB ,PILLOW PLACE UNDERNEATH LEFT ARM ,PT IS VERY COMFORTABLE ,PT DID NOT VOID ALL NIGHT ,JAYA FOSTER AWARE .
[2022-09-12] MEDS: Morphine Sulfate 2 MG/ML CARTRIDGE IVPUSH ×2 (06:20→09:38)
--- NOTE | 2022-09-12 06:25 | PC.NURSE ---
Pt's somnolence, resp effort increases. Pt continues on comfort measures only. Meds has been given to minimized pain. Pt was reposition to the right.
--- NOTE | 2022-09-12 08:59 | PC.NURSE ---
ASSUMED CARE OF THIS PT AT 0700. PT SLEEPING, NO FACIAL GRIMACING, NO MOANING. NO APPARENT DISTRESS. RR 24. PT'S DAUGHTER CALLED FOR UPDATE. (DAUGHTER ALKA MOTT [phone])
[2022-09-12] MEDS: Prochlorperazine Edisylate 10 MG/2 ML VIAL 5 MG IVPUSH (09:39)
--- NOTE | 2022-09-12 09:39 | PC.NURSE ---
patient only responds to painful stimulus moaning while turning/positioning, pts rr is 30, provider in speaking with family and asked this nurse to medicate with the morphine for current rr rate. pt had small amount of coffee ground vomit which was suctioned from her mouth, pt being medicated with compazine as well as morphine ivp. provider to put in a service line bus cleaner pump with morphine for patient. family at bedside, call alonso within reach, will continue to monitor.
[2022-09-12] MEDS: Morphine Sulfate/NS 100 MG/100 ML PLAST..BAG IVCONT (11:15)
--- NOTE | 2022-09-12 11:15 | PC.NURSE ---
this nurse and new grad lori as well as ED nurse Ricki set up auto fleet manager pump, line was primed with 1.5 ml with the pump running at the rate of 2 ml/hr. patient placed on BRANCH SALES MANAGER pump for end of life care/freight car cleaner due to patients RR as well as the patient having pain when turning/positioning noted by moaning and rigid body. per order this rate can be titrated to lower patients RR below 24. family at bedside and is aware and agreeable to auto fleet manager pump. patient currently comfortable, jaundice, turned/positioned, call alonso within reach, will continue to monitor.
--- NOTE | 2022-09-12 12:40 | PC.NURSE ---
this nurse increased the morphine pump basal rate to 2.5 as the patient RR is currently 24, will turn/position patient shortly, family at bedside, will continue to monitor.
--- NOTE | 2022-09-12 13:55 | HO.PM.IMPN ---
Subjective Subjective Date of Service: 09/12/22 Interval History: Looks comfortable Mildly tachypneic Daughter At the bedside Physical Exam Vital Signs: Vital Signs: Last Vital Signs Temp 97.0 F 09/10/22 22:45 Pulse 106 H 09/11/22 09:13 Resp 24 H 09/12/22 12:40 BP 106/62 09/11/22 09:13 Pulse Ox 91 L 09/12/22 06:00 O2 Del Method 09/12/22 06:00 BMI result Body Mass Index 31.1 Const: Other: GOOD HUMOR VENDOR Objective Data Active Medications Acetaminophen (Acetaminophen Supp 650 Mg Supp.Rect) 650 mg ME Q6H PRN PRN Reason: Fever Or Pain Morphine Sulfate (Morphine Sulfate/Ns) 100 mg in 100 mls @ 0 mls/hr IVCONT .Q0M [facility]; Protocol Last Admin: 09/12/22 11:15 Dose: 2 mg/hr, 2 mls/hr Documented By: SHAYY Lorazepam (Lorazepam 2 Mg/Ml Vial) 1 mg IVPUSH Q4H PRN PRN Reason: Anxiety Last Admin: 09/11/22 19:58 Dose: 1 mg Documented By: SHAYY Morphine Sulfate (Morphine Sulfate 2 Mg/Ml Cartridge) 2 mg IVPUSH Q1H PRN; Protocol PRN Reason: comfort and respiratory distre Last Admin: 09/12/22 09:38 Dose: 2 mg Documented By: GUILLERMINA Ondansetron HCl (Ondansetron Hcl 4 Mg/2 Ml Vial) 4 mg IVPUSH Q4H PRN PRN Reason: Vomiting Last Admin: 09/11/22 21:45 Dose: 4 mg Documented By: PARIS Prochlorperazine Edisylate (Prochlorperazine Edisylate 10 Mg/2 Ml Vial) 5 mg IVPUSH Q6H PRN PRN Reason: nausea or vomitting Last Admin: 09/12/22 09:39 Dose: 5 mg Documented By: GUILLERMINA Sodium Chloride (0.9 % Sodium Chloride Flush 3 Ml Syringe) [facility] Last Admin: 09/12/22 08:46 Dose: Not Given Documented By: MORAIMA Non-Admin Reason: See Note Assessment and Plan (1) Adenocarcinoma of pancreas: Status: Acute Plan 76-year-old female, on hospice care for advanced metastatic pancreatic cancer, terminally ill and is being admitted for pain management. Metastatic pancreatic cancer on comfort care Patient has been requiring morphine doses on almost hourly basis IV morphine ICE PLATFORM SUPERVISOR Zofran for nause scopolamine patc Plan discussed with daughter at bed side and all questions answered Time Spent With Patient Time: Total time managing care of this patient today ____ minutes. Quality Stroke Does the patient have a stroke diagnosis?: No VTE Prior VTE?: No VTE Risk Level:: Medical - moderate - high VTE Device Contraindication: Treatment Not Indicated VTE Drug Contraindication: Treatment Not Indicated
--- NOTE | 2022-09-12 14:26 | PC.NURSE ---
patient continues on morphine rn post partum at 2.5/hr respiratory rate is 16 at this time, family is at bedside/music playing, patient has been turned/positioned, mouth care performed, no vomiting has been noted since being medicated earlier today. call alonso within reach of family, will continue to monitor.
--- NOTE | 2022-09-12 16:16 | PC.NURSE ---
fabric and accessories estimator becerril was returned to salvador-charge nurse of the ed.
--- NOTE | 2022-09-12 17:11 | PC.NURSE ---
family came out to see this nurse and stated that the respiratory rate had increased again, this nurse went in to see the patient and RR was again at 24, this nurse turned up the LINEN ROOM HOUSEPERSON pump to 3.0 to help decreased the respiratory rate of the patient per order
--- NOTE | 2022-09-12 17:15 | PC.NURSE ---
patient was turned/positioned with help of tech
--- NOTE | 2022-09-12 19:20 | PC.NURSE ---
Addendum entered by Tayler Manzo 09/12/22 19:23: late entry regarding previous note. below note happened at approximately 19:55. Original Note: Assumed care for patient. Daughter in pt room with nurse Velasco. Pt RR is about 7 breaths per minute. Noted agonal breathing at this time.
--- NOTE | 2022-09-12 20:00 | PC.NURSE ---
Cease of respirations:/ home 1911 patients respirations ceased, pt heart was auscultated and no heart rate was found, MILL ROLL OPERATOR pump was disconnected/stopped, family at bedside, Dr. Schmid was notified. Dr. Schmid came to pronounce the patient. Family stated they would like [facility] home on [facility] [phone], customer contact sales associate is patients daughter Caitlin Miguel [phone].
--- NOTE | 2022-09-12 20:12 | PC.NURSE ---
resident caregiver pump Keegan in Pharmacy stated the TERRAZZO FINISHER HELPER pump morphine should be wasted with the nursing instant potato processing supervisor and to see if the pyxis would let nursing waste it in there if not a note in the patients chart should be written with what instant potato processing supervisor wasted the witnessed.
--- NOTE | 2022-09-12 20:16 | PC.NURSE ---
switchboard notified of home
--- NOTE | 2022-09-12 20:37 | PC.NURSE ---
[facility] notified- frank- , they stated the patient could be accepted for cornea donation and will speak with family, [facility] lithographing machine operator notified
--- NOTE | 2022-09-12 20:56 | PC.NURSE ---
Received call from [facility] Ellie yusuf would like patient to be placed on hold from going to home until [facility] speak to family.
--- NOTE | 2022-09-12 21:11 | PC.NURSE ---
patient has been cleaned up and is ready for the morgue, transport has been notified
--- NOTE | 2022-09-12 22:34 | PC.NURSE ---
Nursing coding clerks supervisor Ashley met with RN to waste 80 mg of SENIOR INSTRUCTOR morphine. RN and Nursing coding clerks supervisor unable to waste morphine in Pyxis r/t per pharmacy Morphine was brought done to nurse on previous shift. Nursing Surpervisor Ashley was instructed by pharmacy to write nursing note as nurse is unable to waste morphine. Pt transported by Dev transporter to [facility] at approximately 2145.
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
== END 2022-09-12 19:30 | disposition expired | DRG 951 ==
LOC: HO.ED 09-05 23:08 → HO.EDOVER 09-10 14:52
PROVIDERS: Physician Assistant; Admitting Provider Internal Medicine; Emergency Provider Emergency Medicine; PCP Internal Medicine; Visit Provider Student in an Organized Health Care Education/Training Program
DX: Z51.5 Encounter for palliative care (principal); C25.9 Malignant neoplasm of pancreas, unspecified; I42.8 Other cardiomyopathies; G89.3 Neoplasm related pain (acute) (chronic); F03.90 Unspecified dementia, unspecified severity, without behavioral disturbance, psychotic disturbance, mood disturbance, and anxiety; E78.5 Hyperlipidemia, unspecified; L40.50 Arthropathic psoriasis, unspecified; E11.22 Type 2 diabetes mellitus with diabetic chronic kidney disease; I12.9 Hypertensive chronic kidney disease with stage 1 through stage 4 chronic kidney disease, or unspecified chronic kidney disease; N18.30 Chronic kidney disease, stage 3 unspecified; E66.9 Obesity, unspecified; G47.33 Obstructive sleep apnea (adult) (pediatric); E78.00 Pure hypercholesterolemia, unspecified; E55.9 Vitamin D deficiency, unspecified; F32.9 Major depressive disorder, single episode, unspecified; R13.10 Dysphagia, unspecified; K21.9 Gastro-esophageal reflux disease without esophagitis; G47.00 Insomnia, unspecified; E21.3 Hyperparathyroidism, unspecified; I44.7 Left bundle-branch block, unspecified; F41.9 Anxiety disorder, unspecified; R06.82 Tachypnea, not elsewhere classified; Z20.822 Contact with and (suspected) exposure to COVID-19; Z88.0 Allergy status to penicillin; Z88.5 Allergy status to narcotic agent; Z88.6 Allergy status to analgesic agent; Z88.8 Allergy status to other drugs, medicaments and biological substances; Z79.899 Other long term (current) drug therapy; Z68.31 Body mass index [BMI] 31.0-31.9, adult; Z96.652 Presence of left artificial knee joint; Z90.710 Acquired absence of both cervix and uterus
CPT/HCPCS: 71045; 87635; 99285; J1170; J2060; J2270; J2405